=== PATIENT | male | born 1940 | race American Indian/Alaskan Native ===

== ENCOUNTER 2021-10-13 14:45 | Emergency (ER) | payer MEDICARE ==
[2021-10-14] MEDS ORDERED: HALOPERIDOL LACTATE 5 MG/1 ML INJ IM PRN (02:39)
[2021-10-14] MEDS ORDERED: LORazepam 2 MG/ML VIAL IM PRN (02:39)
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
--- NOTE | 2021-10-14 03:43 | XRay Report ---
CHEST 1 VIEW INDICATION / CLINICAL INFORMATION: Medical Clearance Psych. COMPARISON: None available. FINDINGS: SUPPORT DEVICES: None. HEART / MEDIASTINUM: No significant abnormality. LUNGS / PLEURA: No significant pulmonary or pleural abnormality. No pneumothorax. ADDITIONAL FINDINGS: No significant additional findings. IMPRESSION: 1. No acute findings. Signer Name: Aron Mccarthy MD Signed: 10/14/2021 3:39 AM Workstation Name: [id number]
[2021-10-14 03:46] LABS: Alanine Aminotransferase 22 units/L (7-56); Albumin 4.4 g/dL (3.9-5); BUN/Creatinine Ratio 14; Blood Urea Nitrogen 13 mg/dL (9-20); Calcium 9.7 mg/dL (8.4-10.2); Hemolysis Index 24
--- NOTE | 2021-10-14 03:49 | Cat Scan Report ---
CT HEAD WITHOUT CONTRAST INDICATION / CLINICAL INFORMATION: Medical Clearance Psych. TECHNIQUE: All CT scans at this location are performed using CT dose reduction for ALARA by means of automated e xposure control. COMPARISON: None FINDINGS: HEMORRHAGE: None. EXTRA-AXIAL SPACES: Normal in size and morphology for the patient's age. VENTRICULAR SYSTEM: Diffuse ventricular megaly secondary to central cerebral atrophy CEREBRAL PARENCHYMA: Moderate cerebral atrophy No significant abnormality. No acute territorial infar ct. MIDLINE SHIFT OR HERNIATION: None. CEREBELLUM / BRAINSTEM: No significant abnormality. ORBITS: Normal as visualized. SOFT TISSUES of HEAD: No significant abnormality. CALVARIUM: No significant abnormality. PARANASAL SINUSES / MASTOID AIR CELLS: Normal as visualized. ADDITIONAL FINDINGS: None. IMPRESSION: 1. No acute intracranial abnormality. 2. Moderate age-appropriate cerebral atrophy. Signer Name: Aron Mccarthy MD Signed: 10/14/2021 3:45 AM Workstation Name: [id number]
[2021-10-14 04:03] LABS: Hematocrit 47.2 % (35.5-45.6); Hemoglobin 15.7 gm/dl (11.8-15.2); Mean Corpuscular HGB Conc 33 % (32-34); Mean Corpuscular Volume 94 fl (84-94); Platelet Count 140 K/mm3 (140-440); Red Blood Count 5.02 M/mm3 (3.65-5.03); Red Cell Distribution Width 14.8 % (13.2-15.2)
[2021-10-14 04:20] LABS: Amphetamine Screen,Urine PRESUMPTIVE NEGATIVE; Benzodiazepines Screen,Urine PRESUMPTIVE NEGATIVE; Cannabinoid Screen,Urine PRESUMPTIVE NEGATIVE; Cocaine Screen,Urine PRESUMPTIVE NEGATIVE; Methadone Screen,Urine PRESUMPTIVE NEGATIVE; Opiate Screen,Urine PRESUMPTIVE NEGATIVE
[2021-10-14 04:44] LABS: Bilirubin,Urine NEG (Negative); Blood,Urine NEG (Negative); Color,Urine Straw (Yellow); Protein,Urine <15 mg/dL mg/dL (Negative)
[2021-10-14 04:45] LABS: RBC,Urine < 1.0 /HPF (0.0-6.0); Urobilinogen,Urine < 2.0 mg/dL (<2.0); WBC,Urine < 1.0 /HPF (0.0-6.0)
[2021-10-14] MEDS ORDERED: GABAPENTIN 300 MG CAP PO PRN (05:25)
[2021-10-14] MEDS ORDERED: ACETAMINOPHEN 325 MG TAB PO PRN (05:29)
[2021-10-14] MEDS ORDERED: ONDANSETRON 4 MG ODT TAB PO PRN (05:29)
[2021-10-14 05:57] LABS: Basophils % (Manual) 0 % (0.0-1.8); Platelet Estimate Consistent w Auto; RBC Morphology Normal; Total Cells Counted 100
[2021-10-14] MEDS ORDERED: LEVOTHYROXINE 25 MCG TAB PO SCH (06:00)
[2021-10-14] MEDS ORDERED: LISINOPRIL 10 MG TAB PO SCH (10:00)
[2021-10-14] MEDS ORDERED: hydroCHLOROthiazide 12.5 MG CAP PO SCH (10:00)
[2021-10-14] MEDS ORDERED: CHOLECALCIFEROL (VIT D3) 5,000 UNIT TAB PO SCH (10:00)
[2021-10-14] MEDS: MEMANTINE 5 MG TAB PO SCH ×2 (10:50→22:40)
[2021-10-14] MEDS: VALPROIC ACID 250 MG CAP PO SCH ×2 (10:50→22:39)
[2021-10-14] MEDS ORDERED: EZETIMIBE 10 MG TAB PO SCH (12:00)
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
[2021-10-14 19:45] VITALS: BP 100/56
[2021-10-14] MEDS ORDERED: TAMSULOSIN 0.4 MG CAP PO SCH (22:00)
--- NOTE | 2021-10-16 21:24 | Electrocardiograph Report ---
[facility] Test Date: 2021-10-14 Test Time: 02:48:55 Pat Name: DIRK SHER Department: Room: Gender: M Plan Examiner: BLANKA : 1940 Requested By: MITCHELL RUIZ Order Number: [id number] Reading MD: Cheryl Rangel Measurements Intervals [place] Rate: 66 P: 48 MS: 172 QRS: 0 QRSD: 92 T: 56 QT: 398 QTc: 417 Interpretive Statements Sinus rhythm No previous ECG available for comparison Electronically Signed On 10-16-2021 21:23:44 EDT by Cheryl Rangel
== END 2021-10-15 03:45 ==
LOC: ED 14:45
DX: F98.9 Unspecified behavioral and emotional disorders with onset usually occurring in childhood and adolescence (principal); Z13.30 Encounter for screening examination for mental health and behavioral disorders, unspecified; F03.91 Unspecified dementia, unspecified severity, with behavioral disturbance
CPT/HCPCS: 36415; 80053; 80164; 80178; 80307; 80320; 81001; 82550; 84443; 85007; 85025; 93005; G0480; J2060; U0003

== ENCOUNTER 2021-10-14 03:54 | Inpatient (IN) | payer MEDICARE ==
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
[2021-10-15] MEDS: VALPROIC ACID 250 MG CAP PO SCH ×3 (10:47→21:58)
[2021-10-15] MEDS: MEMANTINE 5 MG TAB PO SCH ×3 (10:47→21:58)
[2021-10-15] MEDS: LISINOPRIL 10 MG TAB PO SCH (10:48)
--- NOTE | 2021-10-15 11:04 | Consultation ---
History of Present Illness - Reason for Consult Consult date: 10/15/21 Medical management Requesting physician: MACKENZIE HERNADEZ - History of Present Illness 80 YO Male with Vascular Dementia with Behavioral Disturbance, Cerebral Atherosclerosis, DM, HTN, HLD, Hypothyroidism, BPH, Bipolar Disorder admitted [facility] for psychiatric stabilization. Consult placed by Dr. Hernadez for medical management. Pt seen and evaluated in the recreation room. Pt resting comfortably. Patient appears to be at baseline level of cognition and function. No reports of fever, chills, chest pain, palpitation or productive cough, skin rash, recent contact, known exposure to COVID-19. No reported nursing events. Past History Past Medical History: hypertension, hyperlipidemia, hypothyroidism, other (See HPI) Past Surgical History: No surgical history, Other (Reviewed) Social history: single. denies: smoking, alcohol abuse, prescription drug abuse Family history: diabetes, hypertension Medications and Allergies Allergies Allergy/AdvReac Type Severity Reaction Status Date / Time No Known Allergies Allergy Unverified 10/14/21 05:50 Home Medications Medication Instructions Recorded Confirmed Last Taken Type AtorvaSTATin [Lipitor] 40 mg PO HS 10/15/21 10/15/21 Unknown History Cholecalciferol (Vitamin D3) 5,000 units PO DAILY 10/15/21 10/15/21 Unknown History [Vitamin D3] Ezetimibe [Zetia] 10 mg PO 1200 10/15/21 10/15/21 Unknown History Gabapentin 300 mg PO HS PRN 10/15/21 10/15/21 Unknown History Levothyroxine [Synthroid] 25 mg PO DAILY 10/15/21 10/15/21 Unknown History Memantine 5 mg PO BID 10/15/21 10/15/21 Unknown History OLANzapine [ZyPREXA] 2.5 mg PO HS 10/15/21 10/15/21 Unknown History Tamsulosin [Flomax] 40 mg PO HS 10/15/21 10/15/21 Unknown History Valproic Acid [Depakene] 250 mg PO BID 10/15/21 10/15/21 Unknown History hydroCHLOROthiazide 12.5 mg PO DAILY 10/15/21 10/15/21 Unknown History [Hydrochlorothiazide] lisinopriL [Lisinopril] 10 mg PO DAILY 10/15/21 10/15/21 Unknown History Active Meds: Active Medications Atorvastatin Calcium (Atorvastatin 40 Mg Tab) 40 mg PO HS [facility] Cholecalciferol (Cholecalciferol (Vit D3) 5,000 Unit Tab) 5,000 unit PO DAILY [facility] Ezetimibe (Ezetimibe 10 Mg Tab) 10 mg PO 1200 [facility] Gabapentin (Gabapentin 300 Mg Cap) 300 mg PO HS PRN PRN Reason: Pain , Severe (7-10) Hydrochlorothiazide (Hydrochlorothiazide 12.5 Mg Cap) 12.5 mg PO DAILY [facility] Levothyroxine Sodium (Levothyroxine 25 Mcg Tab) 25 mcg PO DAILY [facility] Lisinopril (Lisinopril 10 Mg Tab) 10 mg PO DAILY [facility] Last Admin: 10/15/21 10:48 Dose: 10 mg Memantine (Memantine 5 Mg Tab) 5 mg PO BID [facility] Last Admin: 10/15/21 10:47 Dose: 5 mg Olanzapine (Olanzapine 2.5 Mg Tab) 2.5 mg PO HS [facility] Tamsulosin HCl (Tamsulosin 0.4 Mg Cap) 0.4 mg PO HS [facility] Trazodone HCl (Trazodone 50 Mg Tab) 50 mg PO QHS PRN PRN Reason: Insomnia Valproic Acid (Valproic Acid 250 Mg Cap) 250 mg PO BID [facility] Last Admin: 10/15/21 10:47 Dose: 250 mg Review of Systems Constitutional: no weight loss, no weight gain, no chills, no night sweats Ears, nose, mouth and throat: no ear pain, no tinnitis, no decreased hearing, no nose pain, no nasal discharge Cardiovascular: no chest pain, no palpitations, no edema, no syncope Respiratory: no cough, no excessive sputum Gastrointestinal: no abdominal pain, no diarrhea, no change in bowel habits, no hematemesis Genitourinary Male: no hematuria, no flank pain, no discharge, no urinary freq uency Rectal: no pain, no bleeding Musculoskeletal: no neck pain, no arm numbness/tingling, no shooting leg pain, no redness of joints Integumentary: no pruritis, no wounds, no blisters Neurological: no transient paralysis, no weakness, no parathesias, no numbness, no seizures, no syncope, no ataxia Psychiatric: memory loss, mood swings (Low) Endocrine: no cold intolerance, no heat intolerance, no excessive thirst, no polydipsia Hematologic/Lymphatic: no easy bruising, no lymphadenopathy Allergic/Immunologic: no wheezing, no persistent infections, no angioedema (Numbness unresponsive to) Exam - Constitutional Vitals: Temp Pulse Resp BP Pulse Ox 97.5 F L 69 18 129/75 97 10/15/21 09:52 10/15/21 10:48 10/15/21 09:52 10/15/21 10:48 10/15/21 09:52 General appearance: Present: mild distress - EENT Eyes: Present: PERRL ENT: hearing intact, clear oral mucosa - Neck Neck: Present: supple, normal ROM - Respiratory Respiratory effort: normal Respiratory: bilateral: CTA - Cardiovascular Heart Sounds: Present: S1 & S2. Absent: rub, click - Extremities Extremities: pulses symmetrical, No edema Peripheral Pulses: within normal limits - Abdominal General gastrointestinal: Present: soft, non-tender, non-distended, normal bowel sounds Male genitourinary: Present: normal - Integumentary Integumentary: Present: clear, warm, dry - Musculoskeletal Musculoskeletal: gait normal, strength equal bilaterally - Psychiatric Psychiatric: cooperative - Neurologic Neurologic: CNII-XII intact, moves all extremities Assessment and Plan - Patient Problems (1) Vascular dementia with behavior disturbance Current Visit: Yes Status: Acute Plan to address problem: Verbal prompting, verbal redirection, benzodiazepine therapy as clinically indicated. (2) Cerebral atherosclerosis Current Visit: Yes Status: Acute Plan to address problem: Antiplatelet therapy as clinically indicated, supportive care (3) Hypothyroidism Current Visit: Yes Status: Acute Plan to address problem: Synthroid therapy, supportive care. (4) Bipolar disorder Current Visit: Yes Status: Acute Plan to address problem: Behavior change counseling, cognitive behavioral therapy, supportive care. (5) Hypertension Current Visit: Yes Status: Acute Qualifiers: Hypertension type: primary hypertension Qualified Code(s): I10 - Essential (primary) hypertension Plan to address problem: Monitor blood pressure every shift, continue medical management (6) Diabetes Current Visit: Yes Status: Acute Plan to address problem: Consistent carbohydrate diet, insulin protocol, Accu-Chek, hypoglycemia protocol. (7) BPH (benign prostatic hyperplasia) Current Visit: Yes Status: Acute Plan to address problem: Continue medical management, supportive care. (8) Preventative health care Current Visit: Yes Status: Acute Plan to address problem: Patient counseled regarding home safety, outpatient follow-up with primary care physician for all risk factor and age-appropriate screening test. +30 minutes. (9) Advance care planning Current Visit: Yes Status: Acute Plan to address problem: Disease education conducted, care plan discussed, diagnoses discussed, prognosis discussed and patient is full code. Patient knowledges understanding and agreement with care plan, +30 minutes.
[2021-10-15] MEDS: CHOLECALCIFEROL (VIT D3) 5,000 UNIT TAB PO SCH (11:28)
[2021-10-15] MEDS: hydroCHLOROthiazide 12.5 MG CAP PO SCH (11:28)
[2021-10-15] MEDS: LEVOTHYROXINE 25 MCG TAB PO SCH (11:28)
[2021-10-15] MEDS: EZETIMIBE 10 MG TAB PO SCH (11:28)
[2021-10-15] MEDS: TAMSULOSIN 0.4 MG CAP PO SCH ×2 (21:14→22:00)
[2021-10-16] MEDS ORDERED: WATER FOR INJ Sterile (PF) 10 ML ONE (09:21)
[2021-10-16] MEDS: ZIPRASIDONE MESYLATE 20 MG VIAL IM PRN (09:36)
[2021-10-16] MEDS: hydroCHLOROthiazide 12.5 MG CAP PO SCH (09:37)
[2021-10-16] MEDS: VALPROIC ACID 250 MG CAP PO SCH ×2 (09:38→21:10)
[2021-10-16] MEDS: LISINOPRIL 10 MG TAB PO SCH (09:38)
[2021-10-16] MEDS: CHOLECALCIFEROL (VIT D3) 5,000 UNIT TAB PO SCH (09:38)
[2021-10-16] MEDS: LEVOTHYROXINE 25 MCG TAB PO SCH (09:38)
[2021-10-16] MEDS: MEMANTINE 5 MG TAB PO SCH ×2 (09:38→21:11)
--- NOTE | 2021-10-16 09:56 | Progress Note ---
Subjective Date of service: 10/16/21 Subjective Comment: The patient was seen this morning. He was sitting in front front of a peer's room and refusing redirection. The patient became very agitated when he was escorted to his room. Geodon 20mg IM was given for agitation. The patient is calm and eating breakfast. REVIEW OF SYSTEMS MENTAL STATUS EXAMINATION Diagnoses: Dementia with behavioral disturbances Treatment Plan: Patient admitted for inpatient psychiatric evaluation, medication adjustment and close monitoring The patient's behavior, mood, sleep and appetite will be closely monitored. Patient enrolled in individual and group therapeutic sessions and encouraged to attend. Patient provided with a safe and structured environment. Patient's physical health needs will be addressed by the Hospitalist. Hospitalist Consulted Labs including CBC, CMP, Lipid profile and Hemoglobin A1C levels ordered for baseline reference Social Assessment will be completed and the Manager Stylist will work with patie nt and family to ensure a suitable and safe disposition Medication adjustment will be made as clinically indicated Continue home meds Continue Zyprexa 2.5MG PO qhs Usual Wellness Faith/Preservation: - Start Trazodone 50 mg po QHS & 50 mg po QHS PRN between 10 PM & 2 AM for insomnia - Start Melatonin 5 mg po QHS to promote circadian rhythm The patient agreed on the treatment plan, understood the risk, benefit, alternative treatment, potential consequence of no treatment, and gave informed consent. Estimated days: 7 Medications and Allergies Allergies Allergy/AdvReac Type Severity Reaction Status Date / Time No Known Allergies Allergy Unverified 10/14/21 05:50 Home Medications Medication Instructions Recorded Confirmed Last Taken Type AtorvaSTATin [Lipitor] 40 mg PO HS 10/15/21 10/15/21 Unknown History Cholecalciferol (Vitamin D3) 5,000 units PO DAILY 10/15/21 10/15/21 Unknown History [Vitamin D3] Ezetimibe [Zetia] 10 mg PO 1200 10/15/21 10/15/21 Unknown History Gabapentin 300 mg PO HS PRN 10/15/21 10/15/21 Unknown History Levothyroxine [Synthroid] 25 mg PO DAILY 10/15/21 10/15/21 Unknown History Memantine 5 mg PO BID 10/15/21 10/15/21 Unknown History OLANzapine [ZyPREXA] 2.5 mg PO HS 10/15/21 10/15/21 Unknown History Tamsulosin [Flomax] 40 mg PO HS 10/15/21 10/15/21 Unknown History Valproic Acid [Depakene] 250 mg PO BID 10/15/21 10/15/21 Unknown History hydroCHLOROthiazide 12.5 mg PO DAILY 10/15/21 10/15/21 Unknown History [Hydrochlorothiazide] lisinopriL [Lisinopril] 10 mg PO DAILY 10/15/21 10/15/21 Unknown History Active Meds: Active Medications Atorvastatin Calcium (Atorvastatin 40 Mg Tab) 40 mg PO HS [facility] Last Admin: 10/15/21 21:59 Dose: Not Given Cholecalciferol (Cholecalciferol (Vit D3) 5,000 Unit Tab) 5,000 unit PO DAILY [facility] Last Admin: 10/16/21 09:38 Dose: 5,000 unit Ezetimibe (Ezetimibe 10 Mg Tab) 10 mg PO 1200 [facility] Last Admin: 10/15/21 11:28 Dose: 10 mg Gabapentin (Gabapentin 300 Mg Cap) 300 mg PO HS PRN PRN Reason: Pain , Severe (7-10) Hydrochlorothiazide (Hydrochlorothiazide 12.5 Mg Cap) 12.5 mg PO DAILY [facility] Last Admin: 10/16/21 09:37 Dose: 12.5 mg Levothyroxine Sodium (Levothyroxine 25 Mcg Tab) 25 mcg PO DAILY [facility] Last Admin: 10/16/21 09:38 Dose: 25 mcg Lisinopril (Lisinopril 10 Mg Tab) 10 mg PO DAILY [facility] Last Admin: 10/16/21 09:38 Dose: 10 mg Memantine (Memantine 5 Mg Tab) 5 mg PO BID [facility] Last Admin: 10/16/21 09:38 Dose: 5 mg Olanzapine (Olanzapine 2.5 Mg Tab) 2.5 mg PO HS [facility] Last Admin: 10/15/21 22:00 Dose: Not Given Tamsulosin HCl (Tamsulosin 0.4 Mg Cap) 0.4 mg PO HS [facility] Last Admin: 10/15/21 22:00 Dose: Not Given Trazodone HCl (Trazodone 50 Mg Tab) 50 mg PO QHS PRN PRN Reason: Insomnia Valproic Acid (Valproic Acid 250 Mg Cap) 250 mg PO BID [facility] Last Admin: 10/16/21 09:38 Dose: 250 mg Ziprasidone (Ziprasidone Mesylate 20 Mg Vial) 20 mg IM Q6H PRN PRN Reason: Agitation Last Admin: 10/16/21 09:36 Dose: 20 mg Results - Results Labs/Vitals: Laboratory Last Values POC Glucose 73 mg/dL (70-105) 10/16/21 06:38 Last Vital Signs Temp 97.6 F 10/16/21 07:55 Pulse 62 10/16/21 07:55 Resp 16 10/16/21 07:55 BP 136/87 10/16/21 07:55 Pulse Ox 98 10/16/21 07:55
[2021-10-16] MEDS: EZETIMIBE 10 MG TAB PO SCH (11:56)
[2021-10-16] MEDS: TAMSULOSIN 0.4 MG CAP PO SCH (21:10)
[2021-10-17] MEDS ORDERED: WATER FOR INJ Sterile (PF) 10 ML ONE (01:08)
[2021-10-17] MEDS: ZIPRASIDONE MESYLATE 20 MG VIAL IM PRN (01:15)
[2021-10-17] MEDS: GABAPENTIN 300 MG CAP PO PRN ×2 (01:15→20:38)
[2021-10-17] MEDS: traZODone 50 MG TAB PO PRN ×2 (01:15→20:38)
--- NOTE | 2021-10-17 09:16 | Progress Note ---
Subjective Date of service: 10/17/21 Subjective Comment: 10/17: The patient was seen resting quietly in bed. per nurse, " He presents as confused and forgetful. His appetite is improving and he was medication compliant. He had to be assisted with putting the cup to his mouth due to his confusion. He had no agitation throughout the evening. Overnight the patient slept until around 3 am. A female peer was yelling out and he went to her door and stood in the doorway. He was rubbing his left leg and stated it hurt. He could not be convinced to leave the other patients door. Patient presented as experiencing visual hallucinations. He was following unseen objects with his eyes. Patient could not be redirected without becoming angry. Geodon 20 mg IM was given for increasing agitation. He was assisted to bed where he stayed and rested. He did not sleep much but did not come back out of his room. Patient slept around 5 hours." Start Risperidone 1mg po BID REVIEW OF SYSTEMS MENTAL STATUS EXAMINATION Diagnoses: Dementia with behavioral disturbances Treatment Plan: Patient admitted for inpatient psychiatric evaluation, medication adjustment and close monitoring The patient's behavior, mood, sleep and appetite will be closely monitored. Patient enrolled in individual and group therapeutic sessions and encouraged to attend. Patient provided with a safe and structured environment. Patient's physical health needs will be addressed by the Hospitalist. Hospitalist Consulted Labs including CBC, CMP, Lipid profile and Hemoglobin A1C levels ordered for baseline reference Social Assessment will be completed and the Puppy Sitter will work with patient and family to ensure a suitable and safe disposition Medication adjustment will be made as clinically indicated Continue home meds Usual Wellness Christian/Preservation: - Start Trazodone 50 mg po QHS & 50 mg po QHS PRN between 10 PM & 2 AM for insomnia - Start Melatonin 5 mg po QHS to promote circadian rhythm The patient agreed on the treatment plan, understood the risk, benefit, alternative treatment, potential consequence of no treatment, and gave informed consent. Estimated days: 7 Medications and Allergies Allergies Allergy/AdvReac Type Severity Reaction Status Date / Time No Known Allergies Allergy Unverified 10/14/21 05:50 Home Medications Medication Instructions Recorded Confirmed Last Taken Type AtorvaSTATin [Lipitor] 40 mg PO HS 10/15/21 10/15/21 Unknown History Cholecalciferol (Vitamin D3) 5,000 units PO DAILY 10/15/21 10/15/21 Unknown History [Vitamin D3] Ezetimibe [Zetia] 10 mg PO 1200 10/15/21 10/15/21 Unknown History Gabapentin 300 mg PO HS PRN 10/15/21 10/15/21 Unknown History Levothyroxine [Synthroid] 25 mg PO DAILY 10/15/21 10/15/21 Unknown History Memantine 5 mg PO BID 10/15/21 10/15/21 Unknown History OLANzapine [ZyPREXA] 2.5 mg PO HS 10/15/21 10/15/21 Unknown History Tamsulosin [Flomax] 40 mg PO HS 10/15/21 10/15/21 Unknown History Valproic Acid [Depakene] 250 mg PO BID 10/15/21 10/15/21 Unknown History hydroCHLOROthiazide 12.5 mg PO DAILY 10/15/21 10/15/21 Unknown History [Hydrochlorothiazide] lisinopriL [Lisinopril] 10 mg PO DAILY 10/15/21 10/15/21 Unknown History Active Meds: Active Medications Atorvastatin Calcium (Atorvastatin 40 Mg Tab) 40 mg PO HS [facility] Last Admin: 10/16/21 21:11 Dose: 40 mg Cholecalciferol (Cholecalciferol (Vit D3) 5,000 Unit Tab) 5,000 unit PO DAILY [facility] Last Admin: 10/16/21 09:38 Dose: 5,000 unit Ezetimibe (Ezetimibe 10 Mg Tab) 10 mg PO 1200 [facility] Last Admin: 10/16/21 11:56 Dose: 10 mg Gabapentin (Gabapentin 300 Mg Cap) 300 mg PO HS PRN PRN Reason: Pain , Severe (7-10) Last Admin: 10/17/21 01:15 Dose: 300 mg Hydrochlorothiazide (Hydrochlorothiazide 12.5 Mg Cap) 12.5 mg PO DAILY [facility] Last Admin: 10/16/21 09:37 Dose: 12.5 mg Levothyroxine Sodium (Levothyroxine 25 Mcg Tab) 25 mcg PO DAILY [facility] Last Admin: 10/16/21 09:38 Dose: 25 mcg Lisinopril (Lisinopril 10 Mg Tab) 10 mg PO DAILY [facility] Last Admin: 10/16/21 09:38 Dose: 10 mg Memantine (Memantine 5 Mg Tab) 5 mg PO BID [facility] Last Admin: 10/16/21 21:11 Dose: 5 mg Olanzapine (Olanzapine 2.5 Mg Tab) 2.5 mg PO HS [facility] Last Admin: 10/16/21 21:11 Dose: 2.5 mg Tamsulosin HCl (Tamsulosin 0.4 Mg Cap) 0.4 mg PO HS [facility] Last Admin: 10/16/21 21:10 Dose: 0.4 mg Trazodone HCl (Trazodone 50 Mg Tab) 50 mg PO QHS PRN PRN Reason: Insomnia Last Admin: 10/17/21 01:15 Dose: 50 mg Valproic Acid (Valproic Acid 250 Mg Cap) 250 mg PO BID [facility] Last Admin: 10/16/21 21:10 Dose: 250 mg Results - Results Labs/Vitals: Laboratory Last Values POC Glucose 73 mg/dL (70-105) 10/16/21 06:38 Last Vital Signs Temp 97.1 F L 10/16/21 20:04 Pulse 70 10/16/21 20:04 Resp 18 10/16/21 20:04 BP 122/67 10/16/21 20:04 Pulse Ox 98 10/16/21 20:04
[2021-10-17] MEDS ORDERED: ZIPRASIDONE MESYLATE 20 MG VIAL IM PRN (10:00)
[2021-10-17] MEDS: EZETIMIBE 10 MG TAB PO SCH (12:35)
[2021-10-17] MEDS: VALPROIC ACID 250 MG CAP PO SCH ×2 (12:35→21:19)
[2021-10-17] MEDS: MEMANTINE 5 MG TAB PO SCH ×2 (12:35→21:19)
[2021-10-17] MEDS: risperiDONE 1 MG TAB PO SCH ×2 (12:35→21:19)
[2021-10-17] MEDS: hydroCHLOROthiazide 12.5 MG CAP PO SCH (12:36)
[2021-10-17] MEDS: LEVOTHYROXINE 25 MCG TAB PO SCH (12:37)
[2021-10-17] MEDS: LISINOPRIL 10 MG TAB PO SCH (12:40)
[2021-10-17] MEDS: CHOLECALCIFEROL (VIT D3) 5,000 UNIT TAB PO SCH (12:46)
[2021-10-17] MEDS: TAMSULOSIN 0.4 MG CAP PO SCH (21:19)
--- NOTE | 2021-10-17 21:50 | Progress Note ---
Assessment and Plan - Patient Problems (1) Vascular dementia with behavior disturbance Current Visit: Yes Status: Acute Plan to address problem: Verbal prompting, verbal redirection, benzodiazepine therapy as clinically indicated. (2) Cerebral atherosclerosis Current Visit: Yes Status: Acute Plan to address problem: Antiplatelet therapy as clinically indicated, supportive care (3) Hypothyroidism Current Visit: Yes Status: Acute Plan to address problem: Synthroid therapy, supportive care. (4) Bipolar disorder Current Visit: Yes Status: Acute Plan to address problem: Behavior change counseling, cognitive behavioral therapy, supportive care. (5) Hypertension Current Visit: Yes Status: Acute Qualifiers: Hypertension type: primary hypertension Qualified Code(s): I10 - Essential (primary) hypertension Plan to address problem: Monitor blood pressure every shift, continue medical management (6) Diabetes Current Visit: Yes Status: Acute Plan to address problem: Consistent carbohydrate diet, insulin protocol, Accu-Chek, hypoglycemia protocol. (7) BPH (benign prostatic hyperplasia) Current Visit: Yes Status: Acute Plan to address problem: Continue medical management, supportive care. (8) Preventative health care Current Visit: Yes Status: Acute Plan to address problem: Patient counseled regarding home safety, outpatient follow-up with primary care physician for all risk factor and age-appropriate screening test. +30 minutes. (9) Advance care planning Current Visit: Yes Status: Acute Plan to address problem: Disease education conducted, care plan discussed, diagnoses discussed, prognosis discussed and patient is full code. Patient knowledges understanding and agreement with care plan, +30 minutes. History Interval history: 80 YO Male with Vascular Dementia with Behavioral Disturbance, Cerebral Atherosclerosis, DM, HTN, HLD, Hypothyroidism, BPH, Bipolar Disorder admitted [facility] for psychiatric stabilization. Consult placed by Dr. Guardado for medical management. Pt seen and evaluated in the recreation room. Pt resting comfortably. Patient appears to be at baseline level of cognition and function. No reported nursing events. Hospitalist Physical - Constitutional Vitals: Temp Pulse Resp BP Pulse Ox 97.1 F L 82 18 150/86 99 10/16/21 20:04 10/17/21 09:46 10/17/21 09:46 10/17/21 09:46 10/17/21 09:46 General appearance: Present: mild distress - EENT Eyes: Present: PERRL ENT: hearing intact, hearing decreased - Neck Neck: Present: supple - Respiratory Respiratory effort: normal Respiratory: bilateral: CTA - Cardiovascular Rhythm: regular Heart Sounds: Present: S1 & S2 - Extremities Extremities: no ischemia Peripheral Pulses: within normal limits - Abdominal General gastrointestinal: soft, non-tender, non-distended - Integumentary Integumentary: Present: clear, erythema - Psychiatric Psychiatric: cooperative - Neurologic Neurologic: CNII-XII intact Results - Labs Labs: Laboratory Last Values POC Glucose 73 mg/dL (70-105) 10/16/21 06:38 Campbell/IV: Voiding Method Toilet Active Medications - Current Medications Current Medications: Generic Name Dose Route Start Last Admin Trade Name Freq PRN Reason Stop Dose Admin Atorvastatin Calcium 40 mg 10/15/21 22:00 10/17/21 21:19 Atorvastatin 40 Mg Tab PO 40 mg HS [facility] Administration Cholecalciferol 5,000 unit 10/15/21 11:00 10/17/21 12:46 Cholecalciferol (Vit D3) 5,000 Unit Tab PO 5,000 unit DAILY [facility] Administration Ezetimibe 10 mg 10/15/21 12:00 10/17/21 12:35 Ezetimibe 10 Mg Tab PO 10 mg 1200 [facility] Administration Gabapentin 300 mg 10/15/21 08:34 10/17/21 20:38 Gabapentin 300 Mg Cap PO 300 mg HS PRN Administration Pain , Severe (7-10) Hydrochlorothiazide 12.5 mg 10/15/21 11:00 10/17/21 12:36 Hydrochlorothiazide 12.5 Mg Cap PO 12.5 mg DAILY [facility] Administration Levothyroxine Sodium 25 mcg 10/15/21 11:00 10/17/21 12:37 Levothyroxine 25 Mcg Tab PO 25 mcg DAILY [facility] Administration Lisinopril 10 mg 10/15/21 11:00 10/17/21 12:40 Lisinopril 10 Mg Tab PO 10 mg DAILY [facility] Administration Memantine 5 mg 10/15/21 11:00 10/17/21 21:19 Memantine 5 Mg Tab PO 5 mg BID [facility] Administration Risperidone 1 mg 10/17/21 10:00 10/17/21 21:19 Risperidone 1 Mg Tab PO 1 mg BID [facility] Administration Tamsulosin HCl 0.4 mg 10/15/21 22:00 10/17/21 21:19 Tamsulosin 0.4 Mg Cap PO 0.4 mg HS [facility] Administration Trazodone HCl 50 mg 10/15/21 08:36 10/17/21 20:38 Trazodone 50 Mg Tab PO 50 mg QHS PRN Administration Insomnia Valproic Acid 250 mg 10/15/21 11:00 10/17/21 21:19 Valproic Acid 250 Mg Cap PO 250 mg BID [facility] Administration Ziprasidone 20 mg 10/17/21 10:00 Ziprasidone Mesylate 20 Mg Vial IM Q6H PRN Agitation
--- NOTE | 2021-10-18 09:43 | Progress Note ---
Subjective Date of service: 10/18/21 Subjective Comment: 10/18: The patient was seen resting quietly in bed. Per nurse, the patient had an uneventful night. 10/17: The patient was seen resting quietly in bed. per nurse, " He presents as confused and forgetful. His appetite is improving and he was medication compliant. He had to be assisted with putting the cup to his mouth due to his confusion. He had no agitation throughout the evening. Overnight the patient slept until around 3 am. A female peer was yelling out and he went to her door and stood in the doorway. He was rubbing his left leg and stated it hurt. He could not be convinced to leave the other patients door. Patient presented as experiencing visual hallucinations. He was following unseen objects with his eyes. Patient could not be redirected without becoming angry. Geodon 20 mg IM was given for increasing agitation. He was assisted to bed where he stayed and rested. He did not sleep much but did not come back out of his room. Patient slept around 5 hours." Start Risperidone 1mg po BID REVIEW OF SYSTEMS MENTAL STATUS EXAMINATION Diagnoses: Dementia with behavioral disturbances Treatment Plan: Patient admitted for inpatient psychiatric evaluation, medication adjustment and close monitoring The patient's behavior, mood, sleep and appetite will be closely monitored. Patient enrolled in individual and group therapeutic sessions and encouraged to attend. Patient provided with a safe and structured environment. Patient's physical health needs will be addressed by the Hospitalist. Hospitalist Consulted Labs including CBC, CMP, Lipid profile and Hemoglobin A1C levels ordered for baseline reference Social Assessment will be completed and the [place] Attendant will work with patien t and family to ensure a suitable and safe disposition Medication adjustment will be made as clinically indicated Continue home meds Usual Wellness Moravian/Preservation: - Start Trazodone 50 mg po QHS & 50 mg po QHS PRN between 10 PM & 2 AM for insomnia - Start Melatonin 5 mg po QHS to promote circadian rhythm The patient agreed on the treatment plan, understood the risk, benefit, alternative treatment, potential consequence of no treatment, and gave informed consent. Estimated days: 7 Medications and Allergies Medications and Allergies Allergies Allergy/AdvReac Type Severity Reaction Status Date / Time No Known Allergies Allergy Unverified 10/14/21 05:50 Home Medications Medication Instructions Recorded Confirmed Last Taken Type AtorvaSTATin [Lipitor] 40 mg PO HS 10/15/21 10/15/21 Unknown History Cholecalciferol (Vitamin D3) 5,000 units PO DAILY 10/15/21 10/15/21 Unknown History [Vitamin D3] Ezetimibe [Zetia] 10 mg PO 1200 10/15/21 10/15/21 Unknown History Gabapentin 300 mg PO HS PRN 10/15/21 10/15/21 Unknown History Levothyroxine [Synthroid] 25 mg PO DAILY 10/15/21 10/15/21 Unknown History Memantine 5 mg PO BID 10/15/21 10/15/21 Unknown History OLANzapine [ZyPREXA] 2.5 mg PO HS 10/15/21 10/15/21 Unknown History Tamsulosin [Flomax] 40 mg PO HS 10/15/21 10/15/21 Unknown History Valproic Acid [Depakene] 250 mg PO BID 10/15/21 10/15/21 Unknown History hydroCHLOROthiazide 12.5 mg PO DAILY 10/15/21 10/15/21 Unknown History [Hydrochlorothiazide] lisinopriL [Lisinopril] 10 mg PO DAILY 10/15/21 10/15/21 Unknown History Active Meds: Active Medications Atorvastatin Calcium (Atorvastatin 40 Mg Tab) 40 mg PO HS [facility] Last Admin: 10/17/21 21:19 Dose: 40 mg Cholecalciferol (Cholecalciferol (Vit D3) 5,000 Unit Tab) 5,000 unit PO DAILY [facility] Last Admin: 10/17/21 12:46 Dose: 5,000 unit Ezetimibe (Ezetimibe 10 Mg Tab) 10 mg PO 1200 [facility] Last Admin: 10/17/21 12:35 Dose: 10 mg Gabapentin (Gabapentin 300 Mg Cap) 300 mg PO HS PRN PRN Reason: Pain , Severe (7-10) Last Admin: 10/17/21 20:38 Dose: 300 mg Hydrochlorothiazide (Hydrochlorothiazide 12.5 Mg Cap) 12.5 mg PO DAILY [facility] Last Admin: 10/17/21 12:36 Dose: 12.5 mg Levothyroxine Sodium (Levothyroxine 25 Mcg Tab) 25 mcg PO DAILY [facility] Last Admin: 10/17/21 12:37 Dose: 25 mcg Lisinopril (Lisinopril 10 Mg Tab) 10 mg PO DAILY [facility] Last Admin: 10/17/21 12:40 Dose: 10 mg Memantine (Memantine 5 Mg Tab) 5 mg PO BID [facility] Last Admin: 10/17/21 21:19 Dose: 5 mg Risperidone (Risperidone 1 Mg Tab) 1 mg PO BID [facility] Last Admin: 10/17/21 21:19 Dose: 1 mg Tamsulosin HCl (Tamsulosin 0.4 Mg Cap) 0.4 mg PO HS [facility] Last Admin: 10/17/21 21:19 Dose: 0.4 mg Trazodone HCl (Trazodone 50 Mg Tab) 50 mg PO QHS PRN PRN Reason: Insomnia Last Admin: 10/17/21 20:38 Dose: 50 mg Valproic Acid (Valproic Acid 250 Mg Cap) 250 mg PO BID [facility] Last Admin: 10/17/21 21:19 Dose: 250 mg Ziprasidone (Ziprasidone Mesylate 20 Mg Vial) 20 mg IM Q6H PRN PRN Reason: Agitation Results - Results Labs/Vitals: Laboratory Last Values POC Glucose 73 mg/dL (70-105) 10/16/21 06:38 Last Vital Signs Temp 97.8 F 10/17/21 19:55 Pulse 91 H 10/17/21 19:55 Resp 17 10/17/21 19:55 BP 98/58 10/17/21 19:55 Pulse Ox 96 10/17/21 19:55
[2021-10-18] MEDS: hydroCHLOROthiazide 12.5 MG CAP PO SCH (10:39)
[2021-10-18] MEDS: LEVOTHYROXINE 25 MCG TAB PO SCH (10:39)
[2021-10-18] MEDS: MEMANTINE 5 MG TAB PO SCH ×2 (10:39→21:21)
[2021-10-18] MEDS: risperiDONE 1 MG TAB PO SCH ×2 (10:39→21:21)
[2021-10-18] MEDS: CHOLECALCIFEROL (VIT D3) 5,000 UNIT TAB PO SCH (10:39)
[2021-10-18] MEDS: VALPROIC ACID 250 MG CAP PO SCH ×2 (10:40→21:21)
[2021-10-18] MEDS: LISINOPRIL 10 MG TAB PO SCH (10:41)
[2021-10-18] MEDS: EZETIMIBE 10 MG TAB PO SCH (12:00)
--- NOTE | 2021-10-18 17:50 | Progress Note ---
Assessment and Plan Assessment and plan: (1) Vascular dementia with behavior disturbance Current Visit: Yes Status: Acute Plan to address problem: continue anti-psych medicine verbal redirection benzodiazepine therapy PRN (2) Cerebral atherosclerosis Current Visit: Yes Status: Acute Plan to address problem: Antiplatelet therapy (3) Hypothyroidism Current Visit: Yes Status: Acute Plan to address problem: Continue Synthroid therapy supportive care. (4) Bipolar disorder Current Visit: Yes Status: Acute Plan to address problem: Continue cognitive behavioral therapy supportive care. (5) Hypertension Current Visit: Yes Status: Acute Qualifiers: Assessment and Plan (1) Vascular dementia with behavior disturbance Current Visit: Yes Status: Acute Plan to address problem: continue anti-psych medicine verbal redirection benzodiazepine therapy PRN (2) Cerebral atherosclerosis Current Visit: Yes Status: Acute Plan to address problem: Antiplatelet therapy (3) Hypothyroidism Current Visit: Yes Status: Acute Plan to address problem: Continue Synthroid therapy supportive care. (4) Bipolar disorder Current Visit: Yes Status: Acute Plan to address problem: Continue cognitive behavioral therapy supportive care. (5) Hypertension Current Visit: Yes Status: Acute Qualifiers: Monitor blood pressure Continue anti-hypertensive History Interval history: patient seen at bedside. patient nurse present. patient denies any distress. Hospitalist Physical - Constitutional Vitals: Temp Pulse Resp BP Pulse Ox 98.7 F 82 18 101/62 94 10/18/21 10:32 10/18/21 10:41 10/18/21 10:32 10/18/21 10:41 10/18/21 10:32 General appearance: Present: no acute distress - EENT Eyes: Present: EOM intact ENT: hearing intact - Respiratory Respiratory effort: normal Respiratory: bilateral: CTA - Cardiovascular Rhythm: regular - Extremities Extremities: no ischemia Results - Labs Labs: Laboratory Last Values POC Glucose 73 mg/dL (70-105) 10/16/21 06:38 Campbell/IV: Voiding Method Toilet Active Medications - Current Medications Current Medications: Generic Name Dose Route Start Last Admin Trade Name Freq PRN Reason Stop Dose Admin Atorvastatin Calcium 40 mg 10/15/21 22:00 10/17/21 21:19 Atorvastatin 40 Mg Tab PO 40 mg HS ARTEM Administration Cholecalciferol 5,000 unit 10/15/21 11:00 10/18/21 10:39 Cholecalciferol (Vit D3) 5,000 Unit Tab PO 5,000 unit DAILY ARTEM Administration Ezetimibe 10 mg 10/15/21 12:00 10/18/21 12:00 Ezetimibe 10 Mg Tab PO 10 mg 1200 ARTEM Administration Gabapentin 300 mg 10/15/21 08:34 10/17/21 20:38 Gabapentin 300 Mg Cap PO 300 mg HS PRN Administration Pain , Severe (7-10) Hydrochlorothiazide 12.5 mg 10/15/21 11:00 10/18/21 10:39 Hydrochlorothiazide 12.5 Mg Cap PO 12.5 mg DAILY ARTEM Administration Levothyroxine Sodium 25 mcg 10/15/21 11:00 10/18/21 10:39 Levothyroxine 25 Mcg Tab PO 25 mcg DAILY ARTEM Administration Lisinopril 10 mg 10/15/21 11:00 10/18/21 10:41 Lisinopril 10 Mg Tab PO 10 mg DAILY ARTEM Administration Memantine 5 mg 10/15/21 11:00 10/18/21 10:39 Memantine 5 Mg Tab PO 5 mg BID ARTEM Administration Risperidone 1 mg 10/17/21 10:00 10/18/21 10:39 Risperidone 1 Mg Tab PO 1 mg BID ARTEM Administration Tamsulosin HCl 0.4 mg 10/15/21 22:00 10/17/21 21:19 Tamsulosin 0.4 Mg Cap PO 0.4 mg HS ARTEM Administration Trazodone HCl 50 mg 10/15/21 08:36 10/17/21 20:38 Trazodone 50 Mg Tab PO 50 mg QHS PRN Administration Insomnia Valproic Acid 250 mg 10/15/21 11:00 10/18/21 10:40 Valproic Acid 250 Mg Cap PO 250 mg BID ARTEM Administration Ziprasidone 20 mg 10/17/21 10:00 Ziprasidone Mesylate 20 Mg Vial IM Q6H PRN Agitation
--- NOTE | 2021-10-18 18:10 | Progress Note ---
Assessment and Plan Assessment and plan: Assessment and Plan (1) Vascular dementia with behavior disturbance Current Visit: Yes Status: Acute Plan to address problem: continue anti-psych medicine verbal redirection benzodiazepine therapy PRN (2) Cerebral atherosclerosis Current Visit: Yes Status: Acute Plan to address problem: Antiplatelet therapy (3) Hypothyroidism Current Visit: Yes Status: Acute Plan to address problem: Continue Synthroid therapy supportive care. (4) Bipolar disorder Current Visit: Yes Status: Acute Plan to address problem: Continue cognitive behavioral therapy supportive care. (5) Hypertension Current Visit: Yes Status: Acute Qualifiers: Monitor blood pressure Continue anti-hypertensive History Interval history: Patient seen at bedside. patient nurse present. patient denies any distress. reviewed V/S and is stable. Hospitalist Physical - Constitutional Vitals: Temp Pulse Resp BP Pulse Ox 98.7 F 82 18 101/62 94 10/18/21 10:32 10/18/21 10:41 10/18/21 10:32 10/18/21 10:41 10/18/21 10:32 General appearance: Present: no acute distress - Neck Neck: Present: normal ROM - Respiratory Respiratory effort: normal Respiratory: bilateral: CTA - Cardiovascular Rhythm: regular - Abdominal General gastrointestinal: soft, non-tender - Allied Health Allied health notes reviewed: nursing Results - Labs Labs: Laboratory Last Values POC Glucose 73 mg/dL (70-105) 10/16/21 06:38 Campbell/IV: Voiding Method Toilet Active Medications - Current Medications Current Medications: Generic Name Dose Route Start Last Admin Trade Name Freq PRN Reason Stop Dose Admin Atorvastatin Calcium 40 mg 10/15/21 22:00 10/17/21 21:19 Atorvastatin 40 Mg Tab PO 40 mg HS ARTEM Administration Cholecalciferol 5,000 unit 10/15/21 11:00 10/18/21 10:39 Cholecalciferol (Vit D3) 5,000 Unit Tab PO 5,000 unit DAILY ARTEM Administration Ezetimibe 10 mg 10/15/21 12:00 10/18/21 12:00 Ezetimibe 10 Mg Tab PO 10 mg 1200 ARTEM Administration Gabapentin 300 mg 10/15/21 08:34 10/17/21 20:38 Gabapentin 300 Mg Cap PO 300 mg HS PRN Administration Pain , Severe (7-10) Hydrochlorothiazide 12.5 mg 10/15/21 11:00 10/18/21 10:39 Hydrochlorothiazide 12.5 Mg Cap PO 12.5 mg DAILY ARTEM Administration Levothyroxine Sodium 25 mcg 10/15/21 11:00 10/18/21 10:39 Levothyroxine 25 Mcg Tab PO 25 mcg DAILY ARTEM Administration Lisinopril 10 mg 10/15/21 11:00 10/18/21 10:41 Lisinopril 10 Mg Tab PO 10 mg DAILY ARTEM Administration Memantine 5 mg 10/15/21 11:00 10/18/21 10:39 Memantine 5 Mg Tab PO 5 mg BID ARTEM Administration Risperidone 1 mg 10/17/21 10:00 10/18/21 10:39 Risperidone 1 Mg Tab PO 1 mg BID ARTEM Administration Tamsulosin HCl 0.4 mg 10/15/21 22:00 10/17/21 21:19 Tamsulosin 0.4 Mg Cap PO 0.4 mg HS ARTEM Administration Trazodone HCl 50 mg 10/15/21 08:36 10/17/21 20:38 Trazodone 50 Mg Tab PO 50 mg QHS PRN Administration Insomnia Valproic Acid 250 mg 10/15/21 11:00 10/18/21 10:40 Valproic Acid 250 Mg Cap PO 250 mg BID ARTEM Administration Ziprasidone 20 mg 10/17/21 10:00 Ziprasidone Mesylate 20 Mg Vial IM Q6H PRN Agitation
[2021-10-18] MEDS: TAMSULOSIN 0.4 MG CAP PO SCH (21:21)
[2021-10-19] MEDS: traZODone 50 MG TAB PO PRN ×2 (01:56→20:59)
[2021-10-19] MEDS: GABAPENTIN 300 MG CAP PO PRN ×2 (01:56→20:58)
[2021-10-19 05:56] LABS: Hematocrit 41.7 % (35.5-45.6); Hemoglobin 14.1 gm/dl (11.8-15.2); Mean Corpuscular HGB Conc 34 % (32-34); Mean Corpuscular Volume 93 fl (84-94); Platelet Count 138 K/mm3 (140-440); Red Blood Count 4.48 M/mm3 (3.65-5.03); Red Cell Distribution Width 14.4 % (13.2-15.2)
[2021-10-19 06:10] LABS: BUN/Creatinine Ratio 20; Blood Urea Nitrogen 18 mg/dL (9-20); Calcium 9.1 mg/dL (8.4-10.2); Hemolysis Index 13
[2021-10-19 06:33] LABS: Chol/HDL Ratio 4.1 %
[2021-10-19 07:01] LABS: Hepatitis B Surface Antigen Non-Reactive (Negative); Hepatitis C Virus Antibody Non-Reactive (NonReactive)
[2021-10-19] MEDS: MEMANTINE 5 MG TAB PO SCH ×2 (10:35→20:59)
[2021-10-19] MEDS: risperiDONE 1 MG TAB PO SCH ×2 (10:35→11:34)
--- NOTE | 2021-10-19 10:36 | Progress Note ---
Subjective Date of service: 10/19/21 Subjective Comment: 10/19:The patient was seen resting quietly in bed. He is calm and cooperative. He is requesting for breakfast. Per nurse, " Pt alert but confused. Slept approximately for 5 hours during the night." 10/18: The patient was seen resting quietly in bed. Per nurse, the patient had an uneventful night. 10/17: The patient was seen resting quietly in bed. per nurse, " He presents as confused and forgetful. His appetite is improving and he was medication compliant. He had to be assisted with putting the cup to his mouth due to his confusion. He had no agitation throughout the evening. Overnight the patient slept until around 3 am. A female peer was yelling out and he went to her door and stood in the doorway. He was rubbing his left leg and stated it hurt. He could not be convinced to leave the other patients door. Patient presented as experiencing visual hallucinations. He was following unseen objects with his eyes. Patient could not be redirected without becoming angry. Geodon 20 mg IM was given for increasing agitation. He was assisted to bed where he stayed and rested. He did not sleep much but did not come back out of his room. Patient slept around 5 hours." Start Risperidone 1mg po BID REVIEW OF SYSTEMS MENTAL STATUS EXAMINATION Diagnoses: Dementia with behavioral disturbances Treatment Plan: Patient admitted for inpatient psychiatric evaluation, medication adjustment and close monitoring The patient's behavior, mood, sleep and appetite will be closely monitored. Patient enrolled in individual and group therapeutic sessions and encouraged to attend. Patient provided with a safe and structured environment. Patient's physical health needs will be addressed by the Hospitalist. Hospitalist Consulted Labs including CBC, CMP, Lipid profile and Hemoglobin A1C levels ordered for baseline reference Social Assessment will be completed and the Optical Design Engineer will work with patient and family to ensure a suitable and safe disposition Medication adjustment will be made as clinically indicated Continue home meds Usual Wellness Tenriism/Preservation: - Start Trazodone 50 mg po QHS & 50 mg po QHS PRN between 10 PM & 2 AM for insomnia - Start Melatonin 5 mg po QHS to promote circadian rhythm The patient agreed on the treatment plan, understood the risk, benefit, alternative treatment, potential consequence of no treatment, and gave informed consent. Estimated days: 7 Medications and Allergies Medications and Allergies Allergies Allergy/AdvReac Type Severity Reaction Status Date / Time No Known Allergies Allergy Unverified 10/14/21 05:50 Home Medications Medication Instructions Recorded Confirmed Last Taken Type AtorvaSTATin [Lipitor] 40 mg PO HS 10/15/21 10/15/21 Unknown History Cholecalciferol (Vitamin D3) 5,000 units PO DAILY 10/15/21 10/15/21 Unknown History [Vitamin D3] Ezetimibe [Zetia] 10 mg PO 1200 10/15/21 10/15/21 Unknown History Gabapentin 300 mg PO HS PRN 10/15/21 10/15/21 Unknown History Levothyroxine [Synthroid] 25 mg PO DAILY 10/15/21 10/15/21 Unknown History Memantine 5 mg PO BID 10/15/21 10/15/21 Unknown History OLANzapine [ZyPREXA] 2.5 mg PO HS 10/15/21 10/15/21 Unknown History Tamsulosin [Flomax] 40 mg PO HS 10/15/21 10/15/21 Unknown History Valproic Acid [Depakene] 250 mg PO BID 10/15/21 10/15/21 Unknown History hydroCHLOROthiazide 12.5 mg PO DAILY 10/15/21 10/15/21 Unknown History [Hydrochlorothiazide] lisinopriL [Lisinopril] 10 mg PO DAILY 10/15/21 10/15/21 Unknown History Active Meds: Active Medications Atorvastatin Calcium (Atorvastatin 40 Mg Tab) 40 mg PO HS [facility] Last Admin: 10/18/21 21:21 Dose: 40 mg Cholecalciferol (Cholecalciferol (Vit D3) 5,000 Unit Tab) 5,000 unit PO DAILY S Last Admin: 10/18/21 10:39 Dose: 5,000 unit Ezetimibe (Ezetimibe 10 Mg Tab) 10 mg PO 1200 [facility] Last Admin: 10/18/21 12:00 Dose: 10 mg Gabapentin (Gabapentin 300 Mg Cap) 300 mg PO HS PRN PRN Reason: Pain , Severe (7-10) Last Admin: 10/19/21 01:56 Dose: 300 mg Hydrochlorothiazide (Hydrochlorothiazide 12.5 Mg Cap) 12.5 mg PO DAILY [facility] Last Admin: 10/18/21 10:39 Dose: 12.5 mg Levothyroxine Sodium (Levothyroxine 25 Mcg Tab) 25 mcg PO DAILY [facility] Last Admin: 10/18/21 10:39 Dose: 25 mcg Lisinopril (Lisinopril 10 Mg Tab) 10 mg PO DAILY [facility] Last Admin: 10/18/21 10:41 Dose: 10 mg Memantine (Memantine 5 Mg Tab) 5 mg PO BID [facility] Last Admin: 10/18/21 21:21 Dose: 5 mg Risperidone (Risperidone 1 Mg Tab) 1 mg PO BID [facility] Last Admin: 10/18/21 21:21 Dose: 1 mg Tamsulosin HCl (Tamsulosin 0.4 Mg Cap) 0.4 mg PO HS [facility] Last Admin: 10/18/21 21:21 Dose: 0.4 mg Trazodone HCl (Trazodone 50 Mg Tab) 50 mg PO QHS PRN PRN Reason: Insomnia Last Admin: 10/19/21 01:56 Dose: 50 mg Valproic Acid (Valproic Acid 250 Mg Cap) 250 mg PO BID [facility] Last Admin: 10/18/21 21:21 Dose: 250 mg Ziprasidone (Ziprasidone Mesylate 20 Mg Vial) 20 mg IM Q6H PRN PRN Reason: Agitation Results - Results Labs/Vitals: Laboratory Last Values WBC 13.7 K/mm3 (4.5-11.0) H 10/19/21 05:26 RBC 4.48 M/mm3 (3.65-5.03) 10/19/21 05:26 Hgb 14.1 gm/dl (11.8-15.2) 10/19/21 05:26 Hct 41.7 % (35.5-45.6) 10/19/21 05:26 MCV 93 fl (84-94) 10/19/21 05:26 MCH 32 pg (28-32) 10/19/21 05:26 MCHC 34 % (32-34) 10/19/21 05:26 RDW 14.4 % (13.2-15.2) 10/19/21 05:26 Plt Count 138 K/mm3 (140-440) L 10/19/21 05:26 Sodium 141 mmol/L (137-145) 10/19/21 05:26 Potassium 3.6 mmol/L (3.6-5.0) 10/19/21 05:26 Chloride 105.9 mmol/L (98-107) 10/19/21 05:26 Carbon Dioxide 24 mmol/L (22-30) 10/19/21 05:26 Anion Gap 15 mmol/L 10/19/21 05:26 BUN 18 mg/dL (9-20) 10/19/21 05:26 Creatinine 0.9 mg/dL (0.8-1.3) 10/19/21 05:26 Estimated GFR > 60 ml/min 10/19/21 05:26 BUN/Creatinine Ratio 20 % 10/19/21 05:26 Glucose 108 mg/dL (75-100) H 10/19/21 05:26 POC Glucose 73 mg/dL (70-105) 10/16/21 06:38 Hemoglobin A1c 5.6 % (4-6) 10/19/21 05:26 Calcium 9.1 mg/dL (8.4-10.2) 10/19/21 05:26 Triglycerides 203 mg/dL (2-149) H 10/19/21 05:26 Cholesterol 115 mg/dL (50-199) 10/19/21 05:26 LDL Cholesterol Direct 47 mg/dL (50-130) L 10/19/21 05:26 HDL Cholesterol 28 mg/dL (40-59) L 10/19/21 05:26 Cholesterol/HDL Ratio 4.10 % 10/19/21 05:26 TSH 6.160 mlU/mL (0.270-4.200) H 10/19/21 05:26 Valproic Acid 43.8 ug/mL (50-100) L 10/19/21 05:26 Hepatitis A IgM Ab Non-reactive (NonReactive) 10/19/21 05:26 Hep Bs Antigen Non-reactive (Negative) 10/19/21 05:26 Hep B Core IgM Ab Non-reactive (NonReactive) 10/19/21 05:26 Hepatitis C Antibody Non-reactive (NonReactive) 10/19/21 05:26 Last Vital Signs Temp 98.1 F 10/18/21 20:00 Pulse 123 H 10/18/21 20:00 Resp 18 10/18/21 20:00 BP 124/60 10/18/21 20:00 Pulse Ox 98 10/18/21 20:00
[2021-10-19] MEDS: LEVOTHYROXINE 25 MCG TAB PO SCH (11:33)
[2021-10-19] MEDS: hydroCHLOROthiazide 12.5 MG CAP PO SCH (11:33)
[2021-10-19] MEDS: CHOLECALCIFEROL (VIT D3) 5,000 UNIT TAB PO SCH (11:34)
[2021-10-19] MEDS: LISINOPRIL 10 MG TAB PO SCH (11:34)
[2021-10-19] MEDS: EZETIMIBE 10 MG TAB PO SCH (11:34)
[2021-10-19] MEDS: VALPROIC ACID 250 MG CAP PO SCH ×2 (11:34→20:59)
--- NOTE | 2021-10-19 15:53 | Progress Note ---
Assessment and Plan Assessment and plan: Assessment and Plan (1) Vascular dementia with behavior disturbance Current Visit: Yes Status: Acute Plan to address problem: continue anti-psych medicine verbal redirection benzodiazepine therapy PRN (2) Cerebral atherosclerosis Current Visit: Yes Status: Acute Plan to address problem: Antiplatelet therapy (3) Hypothyroidism Current Visit: Yes Status: Acute Plan to address problem: Continue Synthroid therapy supportive care. (4) Bipolar disorder Current Visit: Yes Status: Acute Plan to address problem: Continue cognitive behavioral therapy supportive care. (5) Hypertension Current Visit: Yes Status: Acute Qualifiers: Monitor blood pressure Continue anti-hypertensive History Interval history: 10/18/21-Patient seen at bedside. patient nurse present. patient denies any distress. reviewed V/S and is stable. 10/19/21-patient seen at bedsidepatient resting. Patient denies any distress. Hospitalist Physical - Constitutional Vitals: Temp Pulse Resp BP Pulse Ox 98.1 F 72 18 125/62 98 10/18/21 20:00 10/19/21 11:34 10/18/21 20:00 10/19/21 11:34 10/18/21 20:00 General appearance: Present: no acute distress - Respiratory Respiratory: bilateral: CTA - Extremities Extremities: no ischemia - Abdominal General gastrointestinal: non-tender - Integumentary Integumentary: Present: warm - Psychiatric Psychiatric: cooperative - Allied Health Allied health notes reviewed: nursing Results - Labs CBC & Chem 7: 10/19/21 05:26 10/19/21 05:26 Labs: Laboratory Last Values WBC 13.7 K/mm3 (4.5-11.0) H 10/19/21 05:26 RBC 4.48 M/mm3 (3.65-5.03) 10/19/21 05:26 Hgb 14.1 gm/dl (11.8-15.2) 10/19/21 05:26 Hct 41.7 % (35.5-45.6) 10/19/21 05:26 MCV 93 fl (84-94) 10/19/21 05:26 MCH 32 pg (28-32) 10/19/21 05:26 MCHC 34 % (32-34) 10/19/21 05:26 RDW 14.4 % (13.2-15.2) 10/19/21 05:26 Plt Count 138 K/mm3 (140-440) L 10/19/21 05:26 Sodium 141 mmol/L (137-145) 10/19/21 05:26 Potassium 3.6 mmol/L (3.6-5.0) 10/19/21 05:26 Chloride 105.9 mmol/L (98-107) 10/19/21 05:26 Carbon Dioxide 24 mmol/L (22-30) 10/19/21 05:26 Anion Gap 15 mmol/L 10/19/21 05:26 BUN 18 mg/dL (9-20) 10/19/21 05:26 Creatinine 0.9 mg/dL (0.8-1.3) 10/19/21 05:26 Estimated GFR > 60 ml/min 10/19/21 05:26 BUN/Creatinine Ratio 20 % 10/19/21 05:26 Glucose 108 mg/dL (75-100) H 10/19/21 05:26 POC Glucose 73 mg/dL (70-105) 10/16/21 06:38 Hemoglobin A1c 5.6 % (4-6) 10/19/21 05:26 Calcium 9.1 mg/dL (8.4-10.2) 10/19/21 05:26 Triglycerides 203 mg/dL (2-149) H 10/19/21 05:26 Cholesterol 115 mg/dL (50-199) 10/19/21 05:26 LDL Cholesterol Direct 47 mg/dL (50-130) L 10/19/21 05:26 HDL Cholesterol 28 mg/dL (40-59) L 10/19/21 05:26 Cholesterol/HDL Ratio 4.10 % 10/19/21 05:26 TSH 6.160 mlU/mL (0.270-4.200) H 10/19/21 05:26 Valproic Acid 43.8 ug/mL (50-100) L 10/19/21 05:26 Hepatitis A IgM Ab Non-reactive (NonReactive) 10/19/21 05:26 Hep Bs Antigen Non-reactive (Negative) 10/19/21 05:26 Hep B Core IgM Ab Non-reactive (NonReactive) 10/19/21 05:26 Hepatitis C Antibody Non-reactive (NonReactive) 10/19/21 05:26 Campbell/IV: Voiding Method Incontinent Active Medications - Current Medications Current Medications: Generic Name Dose Route Start Last Admin Trade Name Jesus Alberto PRN Reason Stop Dose Admin Atorvastatin Calcium 40 mg 10/15/21 22:00 10/18/21 21:21 Atorvastatin 40 Mg Tab PO 40 mg HS ARTEM Administration Cholecalciferol 5,000 unit 10/15/21 11:00 10/19/21 11:34 Cholecalciferol (Vit D3) 5,000 Unit Tab PO 5,000 unit DAILY ARTEM Administration Ezetimibe 10 mg 10/15/21 12:00 10/19/21 11:34 Ezetimibe 10 Mg Tab PO 10 mg 1200 ARTEM Administration Gabapentin 300 mg 10/15/21 08:34 10/19/21 01:56 Gabapentin 300 Mg Cap PO 300 mg HS PRN Administration Pain , Severe (7-10) Hydrochlorothiazide 12.5 mg 10/15/21 11:00 10/19/21 11:33 Hydrochlorothiazide 12.5 Mg Cap PO 12.5 mg DAILY ARTEM Administration Levothyroxine Sodium 25 mcg 10/15/21 11:00 10/19/21 11:33 Levothyroxine 25 Mcg Tab PO 25 mcg DAILY ARTEM Administration Lisinopril 10 mg 10/15/21 11:00 10/19/21 11:34 Lisinopril 10 Mg Tab PO 10 mg DAILY ARTEM Administration Memantine 5 mg 10/15/21 11:00 10/19/21 10:35 Memantine 5 Mg Tab PO 5 mg BID ARTEM Administration Risperidone 0.5 mg 10/19/21 22:00 Risperidone 0.25 Mg Tab PO BID ARTEM Tamsulosin HCl 0.4 mg 10/15/21 22:00 10/18/21 21:21 Tamsulosin 0.4 Mg Cap PO 0.4 mg HS ARTEM Administration Trazodone HCl 50 mg 10/15/21 08:36 10/19/21 01:56 Trazodone 50 Mg Tab PO 50 mg QHS PRN Administration Insomnia Valproic Acid 250 mg 10/15/21 11:00 10/19/21 11:34 Valproic Acid 250 Mg Cap PO 250 mg BID ARTEM Administration Ziprasidone 20 mg 10/17/21 10:00 Ziprasidone Mesylate 20 Mg Vial IM Q6H PRN Agitation
[2021-10-19] MEDS: TAMSULOSIN 0.4 MG CAP PO SCH (20:59)
[2021-10-19] MEDS: risperiDONE 0.25 MG TAB PO SCH (20:59)
--- NOTE | 2021-10-20 08:58 | Progress Note ---
Subjective Date of service: 10/20/21 Subjective Comment: 10/20: The patient was seen today. The patient is alert and oriented x1. He reports doing well " trying to make it." he continues to present with some confusion. No aggressive behavior reported. No changes made today. 10/19:The patient was seen resting quietly in bed. He is calm and cooperative. He is requesting for breakfast. Per nurse, " Pt alert but confused. Slept approximately for 5 hours during the night." 10/18: The patient was seen resting quietly in bed. Per nurse, the patient had an uneventful night. 10/17: The patient was seen resting quietly in bed. per nurse, " He presents as confused and forgetful. His appetite is improving and he was medication compliant. He had to be assisted with putting the cup to his mouth due to his confusion. He had no agitation throughout the evening. Overnight the patient slept until around 3 am. A female peer was yelling out and he went to her door and stood in the doorway. He was rubbing his left leg and stated it hurt. He could not be convinced to leave the other patients door. Patient presented as experiencing visual hallucinations. He was following unseen objects with his eyes. Patient could not be redirected without becoming angry. Geodon 20 mg IM was given for increasing agitation. He was assisted to bed where he stayed and rested. He did not sleep much but did not come back out of his ro om. Patient slept around 5 hours." Start Risperidone 1mg po BID REVIEW OF SYSTEMS MENTAL STATUS EXAMINATION Diagnoses: Dementia with behavioral disturbances Treatment Plan: Patient admitted for inpatient psychiatric evaluation, medication adjustment and close monitoring The patient's behavior, mood, sleep and appetite will be closely monitored. Patient enrolled in individual and group therapeutic sessions and encouraged to attend. Patient provided with a safe and structured environment. Patient's physical health needs will be addressed by the Hospitalist. Hospitalist Consulted Labs including CBC, CMP, Lipid profile and Hemoglobin A1C levels ordered for baseline reference Social Assessment will be completed and the Foreign Exchange Position Clerk will work with patient and family to ensure a suitable and safe disposition Medication adjustment will be made as clinically indicated Continue home meds Usual Wellness Moravian/Preservation: - Start Trazodone 50 mg po QHS & 50 mg po QHS PRN between 10 PM & 2 AM for insomnia - Start Melatonin 5 mg po QHS to promote circadian rhythm The patient agreed on the treatment plan, understood the risk, benefit, alternative treatment, potential consequence of no treatment, and gave informed consent. Estimated days: 7 Medications and Allergies Medications and Allergies Allergies Allergy/AdvReac Type Severity Reaction Status Date / Time No Known Allergies Allergy Unverified 10/14/21 05:50 Home Medications Medication Instructions Recorded Confirmed Last Taken Type AtorvaSTATin [Lipitor] 40 mg PO HS 10/15/21 10/15/21 Unknown History Cholecalciferol (Vitamin D3) 5,000 units PO DAILY 10/15/21 10/15/21 Unknown History [Vitamin D3] Ezetimibe [Zetia] 10 mg PO 1200 10/15/21 10/15/21 Unknown History Gabapentin 300 mg PO HS PRN 10/15/21 10/15/21 Unknown History Levothyroxine [Synthroid] 25 mg PO DAILY 10/15/21 10/15/21 Unknown History Memantine 5 mg PO BID 10/15/21 10/15/21 Unknown History OLANzapine [ZyPREXA] 2.5 mg PO HS 10/15/21 10/15/21 Unknown History Tamsulosin [Flomax] 40 mg PO HS 10/15/21 10/15/21 Unknown History Valproic Acid [Depakene] 250 mg PO BID 10/15/21 10/15/21 Unknown History hydroCHLOROthiazide 12.5 mg PO DAILY 10/15/21 10/15/21 Unknown History [Hydrochlorothiazide] lisinopriL [Lisinopril] 10 mg PO DAILY 10/15/21 10/15/21 Unknown History Active Meds: Active Medications Atorvastatin Calcium (Atorvastatin 40 Mg Tab) 40 mg PO HS [facility] Last Admin: 10/19/21 20:59 Dose: 40 mg Cholecalciferol (Cholecalciferol (Vit D3) 5,000 Unit Tab) 5,000 unit PO DAILY [facility] Last Admin: 10/19/21 11:34 Dose: 5,000 unit Ezetimibe (Ezetimibe 10 Mg Tab) 10 mg PO 1200 [facility] Last Admin: 10/19/21 11:34 Dose: 10 mg Gabapentin (Gabapentin 300 Mg Cap) 300 mg PO HS PRN PRN Reason: Pain , Severe (7-10) Last Admin: 10/19/21 20:58 Dose: 300 mg Hydrochlorothiazide (Hydrochlorothiazide 12.5 Mg Cap) 12.5 mg PO DAILY [facility] Last Admin: 10/19/21 11:33 Dose: 12.5 mg Levothyroxine Sodium (Levothyroxine 25 Mcg Tab) 25 mcg PO DAILY [facility] Last Admin: 10/19/21 11:33 Dose: 25 mcg Lisinopril (Lisinopril 10 Mg Tab) 10 mg PO DAILY [facility] Last Admin: 10/19/21 11:34 Dose: 10 mg Memantine (Memantine 5 Mg Tab) 5 mg PO BID [facility] Last Admin: 10/19/21 20:59 Dose: 5 mg Risperidone (Risperidone 0.25 Mg Tab) 0.5 mg PO BID [facility] Last Admin: 10/19/21 20:59 Dose: 0.5 mg Tamsulosin HCl (Tamsulosin 0.4 Mg Cap) 0.4 mg PO HS [facility] Last Admin: 10/19/21 20:59 Dose: 0.4 mg Trazodone HCl (Trazodone 50 Mg Tab) 50 mg PO QHS PRN PRN Reason: Insomnia Last Admin: 10/19/21 20:59 Dose: 50 mg Valproic Acid (Valproic Acid 250 Mg Cap) 250 mg PO BID [facility] Last Admin: 10/19/21 20:59 Dose: 250 mg Ziprasidone (Ziprasidone Mesylate 20 Mg Vial) 20 mg IM Q6H PRN PRN Reason: Agitation Results - Results Labs/Vitals: Laboratory Last Values WBC 13.7 K/mm3 (4.5-11.0) H 10/19/21 05:26 RBC 4.48 M/mm3 (3.65-5.03) 10/19/21 05:26 Hgb 14.1 gm/dl (11.8-15.2) 10/19/21 05:26 Hct 41.7 % (35.5-45.6) 10/19/21 05:26 MCV 93 fl (84-94) 10/19/21 05:26 MCH 32 pg (28-32) 10/19/21 05:26 MCHC 34 % (32-34) 10/19/21 05:26 RDW 14.4 % (13.2-15.2) 10/19/21 05:26 Plt Count 138 K/mm3 (140-440) L 10/19/21 05:26 Sodium 141 mmol/L (137-145) 10/19/21 05:26 Potassium 3.6 mmol/L (3.6-5.0) 10/19/21 05:26 Chloride 105.9 mmol/L (98-107) 10/19/21 05:26 Carbon Dioxide 24 mmol/L (22-30) 10/19/21 05:26 Anion Gap 15 mmol/L 10/19/21 05:26 BUN 18 mg/dL (9-20) 10/19/21 05:26 Creatinine 0.9 mg/dL (0.8-1.3) 10/19/21 05:26 Estimated GFR > 60 ml/min 10/19/21 05:26 BUN/Creatinine Ratio 20 % 10/19/21 05:26 Glucose 108 mg/dL (75-100) H 10/19/21 05:26 POC Glucose 73 mg/dL (70-105) 10/16/21 06:38 Hemoglobin A1c 5.6 % (4-6) 10/19/21 05:26 Calcium 9.1 mg/dL (8.4-10.2) 10/19/21 05:26 Triglycerides 203 mg/dL (2-149) H 10/19/21 05:26 Cholesterol 115 mg/dL (50-199) 10/19/21 05:26 LDL Cholesterol Direct 47 mg/dL (50-130) L 10/19/21 05:26 HDL Cholesterol 28 mg/dL (40-59) L 10/19/21 05:26 Cholesterol/HDL Ratio 4.10 % 10/19/21 05:26 TSH 6.160 mlU/mL (0.270-4.200) H 10/19/21 05:26 Valproic Acid 43.8 ug/mL (50-100) L 10/19/21 05:26 Hepatitis A IgM Ab Non-reactive (NonReactive) 10/19/21 05:26 Hep Bs Antigen Non-reactive (Negative) 10/19/21 05:26 Hep B Core IgM Ab Non-reactive (NonReactive) 10/19/21 05:26 Hepatitis C Antibody Non-reactive (NonReactive) 10/19/21 05:26 Last Vital Signs Temp 97.4 F L 10/20/21 08:01 Pulse 63 10/20/21 08:01 Resp 16 10/20/21 08:01 BP 134/71 10/20/21 08:01 Pulse Ox 98 10/20/21 08:01
[2021-10-20] MEDS: MEMANTINE 5 MG TAB PO SCH ×2 (09:44→21:39)
[2021-10-20] MEDS: risperiDONE 0.25 MG TAB PO SCH ×2 (09:44→21:39)
[2021-10-20] MEDS: hydroCHLOROthiazide 12.5 MG CAP PO SCH (09:44)
[2021-10-20] MEDS: VALPROIC ACID 250 MG CAP PO SCH ×2 (09:44→21:38)
[2021-10-20] MEDS: LEVOTHYROXINE 25 MCG TAB PO SCH (09:45)
[2021-10-20] MEDS: LISINOPRIL 10 MG TAB PO SCH (09:45)
[2021-10-20] MEDS: CHOLECALCIFEROL (VIT D3) 5,000 UNIT TAB PO SCH (09:45)
[2021-10-20] MEDS: EZETIMIBE 10 MG TAB PO SCH (11:44)
--- NOTE | 2021-10-20 11:54 | Progress Note ---
<NENITA GONZALES - Last Filed: 10/20/21 11:49> Assessment and Plan - Patient Problems (1) Leukocytosis Current Visit: Yes Status: Acute Plan to address problem: Afebrile, vitals WNL UA, and labs pending no abx for now, continue to trend cbc and f.u pending labs (2) Hypertension Current Visit: Yes Status: Acute Qualifiers: Hypertension type: primary hypertension Qualified Code(s): I10 - Essential (primary) hypertension Plan to address problem: Monitor blood pressure per protocol Continue Lisinopril and HCTZ on heart healthy diet (3) BPH (benign prostatic hyperplasia) Current Visit: Yes Status: Acute Plan to address problem: On Flomax Monitor for s/s of urinary retention (4) Hypothyroidism Current Visit: Yes Status: Acute Plan to address problem: On Synthroid (5) Cerebral atherosclerosis Current Visit: Yes Status: Acute Plan to address problem: On antiplatelet therapy On statin and Zetia (6) Bipolar disorder Current Visit: Yes Status: Acute Plan to address problem: mgmt per primary (7) Vascular dementia with behavior disturbance Current Visit: Yes Status: Acute Plan to address problem: continue anti-psych medicine mgmt per primary History Interval history: 80-year-old male with history of HTN, hypothyroidism vascular dementia, cerebral atherosclerosis, and bipolar disorder who was admitted after being found to be danger to self, others, and failure of outpatient treatment. He is seen in room (510) this morning sitting in May-chair, oriented to self. He denies self harm or harming others. No overnight events reported. Hospitalist Physical - Constitutional Vitals: Temp Pulse Resp BP Pulse Ox 97.4 F L 63 16 134/71 98 10/20/21 08:01 10/20/21 09:45 10/20/21 08:01 10/20/21 09:45 10/20/21 08:01 General appearance: Present: no acute distress, other (Oriented to self) - EENT Eyes: Present: PERRL, EOM intact ENT: hearing intact, clear oral mucosa, other (missing teeth) - Neck Neck: Present: supple, normal ROM - Respiratory Respiratory effort: normal Respiratory: bilateral: CTA - Cardiovascular Rhythm: regular Heart Sounds: Present: S1 & S2, click. Absent: systolic murmur, diastolic murmur, rub - Extremities Extremities: pulses intact, pulses symmetrical, No edema Peripheral Pulses: within normal limits - Abdominal General gastrointestinal: soft, non-tender, non-distended, normal bowel sounds - Integumentary Integumentary: Present: clear, warm, dry - Psychiatric Psychiatric: cooperative - Neurologic Neurologic: CNII-XII intact Results - Labs CBC & Chem 7: 10/19/21 05:26 10/19/21 05:26 Labs: Laboratory Last Values WBC 13.7 K/mm3 (4.5-11.0) H 10/19/21 05:26 RBC 4.48 M/mm3 (3.65-5.03) 10/19/21 05:26 Hgb 14.1 gm/dl (11.8-15.2) 10/19/21 05:26 Hct 41.7 % (35.5-45.6) 10/19/21 05:26 MCV 93 fl (84-94) 10/19/21 05:26 MCH 32 pg (28-32) 10/19/21 05:26 MCHC 34 % (32-34) 10/19/21 05:26 RDW 14.4 % (13.2-15.2) 10/19/21 05:26 Plt Count 138 K/mm3 (140-440) L 10/19/21 05:26 Sodium 141 mmol/L (137-145) 10/19/21 05:26 Potassium 3.6 mmol/L (3.6-5.0) 10/19/21 05:26 Chloride 105.9 mmol/L (98-107) 10/19/21 05:26 Carbon Dioxide 24 mmol/L (22-30) 10/19/21 05:26 Anion Gap 15 mmol/L 10/19/21 05:26 BUN 18 mg/dL (9-20) 10/19/21 05:26 Creatinine 0.9 mg/dL (0.8-1.3) 10/19/21 05:26 Estimated GFR > 60 ml/min 10/19/21 05:26 BUN/Creatinine Ratio 20 % 10/19/21 05:26 Glucose 108 mg/dL (75-100) H 10/19/21 05:26 POC Glucose 73 mg/dL (70-105) 10/16/21 06:38 Hemoglobin A1c 5.6 % (4-6) 10/19/21 05:26 Calcium 9.1 mg/dL (8.4-10.2) 10/19/21 05:26 Triglycerides 203 mg/dL (2-149) H 10/19/21 05:26 Cholesterol 115 mg/dL (50-199) 10/19/21 05:26 LDL Cholesterol Direct 47 mg/dL (50-130) L 10/19/21 05:26 HDL Cholesterol 28 mg/dL (40-59) L 10/19/21 05:26 Cholesterol/HDL Ratio 4.10 % 10/19/21 05:26 TSH 6.160 mlU/mL (0.270-4.200) H 10/19/21 05:26 Valproic Acid 43.8 ug/mL (50-100) L 10/19/21 05:26 Hepatitis A IgM Ab Non-reactive (NonReactive) 10/19/21 05:26 Hep Bs Antigen Non-reactive (Negative) 10/19/21 05:26 Hep B Core IgM Ab Non-reactive (NonReactive) 10/19/21 05:26 Hepatitis C Antibody Non-reactive (NonReactive) 10/19/21 05:26 Campbell/IV: Voiding Method Toilet Active Medications - Current Medications Current Medications: Generic Name Dose Route Start Last Admin Trade Name Freq PRN Reason Stop Dose Admin Aspirin 81 mg 10/20/21 12:00 Aspirin 81 Mg Tab Chew PO QDAY ARTEM Atorvastatin Calcium 40 mg 10/15/21 22:00 10/19/21 20:59 Atorvastatin 40 Mg Tab PO 40 mg HS ARTEM Administration Cholecalciferol 5,000 unit 10/15/21 11:00 10/20/21 09:45 Cholecalciferol (Vit D3) 5,000 Unit Tab PO 5,000 unit DAILY [facility] Administration Ezetimibe 10 mg 10/15/21 12:00 10/20/21 11:44 Ezetimibe 10 Mg Tab PO 10 mg 1200 [facility]EM Administration Gabapentin 300 mg 10/15/21 08:34 10/19/21 20:58 Gabapentin 300 Mg Cap PO 300 mg HS PRN Administration Pain , Severe (7-10) Hydrochlorothiazide 12.5 mg 10/15/21 11:00 10/20/21 09:44 Hydrochlorothiazide 12.5 Mg Cap PO 12.5 mg DAILY ARTEM Administration Levothyroxine Sodium 25 mcg 10/15/21 11:00 10/20/21 09:45 Levothyroxine 25 Mcg Tab PO 25 mcg DAILY ARTEM Administration Lisinopril 10 mg 10/15/21 11:00 10/20/21 09:45 Lisinopril 10 Mg Tab PO 10 mg DAILY ARTEM Administration Memantine 5 mg 10/15/21 11:00 10/20/21 09:44 Memantine 5 Mg Tab PO 5 mg BID ARTEM Administration Risperidone 0.5 mg 10/19/21 22:00 10/20/21 09:44 Risperidone 0.25 Mg Tab PO 0.5 mg BID ARTEM Administration Risperidone 0.5 mg 10/20/21 22:00 Risperidone 0.25 Mg Tab PO QHS ARTEM Tamsulosin HCl 0.4 mg 10/15/21 22:00 10/19/21 20:59 Tamsulosin 0.4 Mg Cap PO 0.4 mg HS ARTEM Administration Trazodone HCl 50 mg 10/15/21 08:36 10/19/21 20:59 Trazodone 50 Mg Tab PO 50 mg QHS PRN Administration Insomnia Valproic Acid 250 mg 10/15/21 11:00 10/20/21 09:44 Valproic Acid 250 Mg Cap PO 250 mg BID ARTEM Administration Ziprasidone 20 mg 10/17/21 10:00 Ziprasidone Mesylate 20 Mg Vial IM Q6H PRN Agitation <CARLOTA ACOSTA - Last Filed: 10/20/21 16:35> Assessment and Plan Assessment and plan: I saw and evaluated the patient. I agree with the findings and the plan of care as documented in the Nurse Practitioner's~note, with the following corrections and additions. Hospitalist Physical - Constitutional Vitals: Temp Pulse Resp BP Pulse Ox 97.4 F L 112 H 16 109/66 96 10/20/21 08:01 10/20/21 12:47 10/20/21 08:01 10/20/21 12:47 10/20/21 12:47 Results - Labs CBC & Chem 7: 10/19/21 05:26 10/19/21 05:26 Labs: Laboratory Last Values WBC 13.7 K/mm3 (4.5-11.0) H 10/19/21 05:26 RBC 4.48 M/mm3 (3.65-5.03) 10/19/21 05:26 Hgb 14.1 gm/dl (11.8-15.2) 10/19/21 05:26 Hct 41.7 % (35.5-45.6) 10/19/21 05:26 MCV 93 fl (84-94) 10/19/21 05:26 MCH 32 pg (28-32) 10/19/21 05:26 MCHC 34 % (32-34) 10/19/21 05:26 RDW 14.4 % (13.2-15.2) 10/19/21 05:26 Plt Count 138 K/mm3 (140-440) L 10/19/21 05:26 Sodium 141 mmol/L (137-145) 10/19/21 05:26 Potassium 3.6 mmol/L (3.6-5.0) 10/19/21 05:26 Chloride 105.9 mmol/L (98-107) 10/19/21 05:26 Carbon Dioxide 24 mmol/L (22-30) 10/19/21 05:26 Anion Gap 15 mmol/L 10/19/21 05:26 BUN 18 mg/dL (9-20) 10/19/21 05:26 Creatinine 0.9 mg/dL (0.8-1.3) 10/19/21 05:26 Estimated GFR > 60 ml/min 10/19/21 05:26 BUN/Creatinine Ratio 20 % 10/19/21 05:26 Glucose 108 mg/dL (75-100) H 10/19/21 05:26 POC Glucose 73 mg/dL (70-105) 10/16/21 06:38 Hemoglobin A1c 5.6 % (4-6) 10/19/21 05:26 Calcium 9.1 mg/dL (8.4-10.2) 10/19/21 05:26 Triglycerides 203 mg/dL (2-149) H 10/19/21 05:26 Cholesterol 115 mg/dL (50-199) 10/19/21 05:26 LDL Cholesterol Direct 47 mg/dL (50-130) L 10/19/21 05:26 HDL Cholesterol 28 mg/dL (40-59) L 10/19/21 05:26 Cholesterol/HDL Ratio 4.10 % 10/19/21 05:26 TSH 6.160 mlU/mL (0.270-4.200) H 10/19/21 05:26 Valproic Acid 43.8 ug/mL (50-100) L 10/19/21 05:26 Hepatitis A IgM Ab Non-reactive (NonReactive) 10/19/21 05:26 Hep Bs Antigen Non-reactive (Negative) 10/19/21 05:26 Hep B Core IgM Ab Non-reactive (NonReactive) 10/19/21 05:26 Hepatitis C Antibody Non-reactive (NonReactive) 10/19/21 05:26 Campbell/IV: Voiding Method Toilet Active Medications - Current Medications Current Medications: Generic Name Dose Route Start Last Admin Trade Name Freq PRN Reason Stop Dose Admin Aspirin 81 mg 10/20/21 12:00 10/20/21 11:58 Aspirin 81 Mg Tab Chew PO 81 mg QDAY [facility] Administration Atorvastatin Calcium 40 mg 10/15/21 22:00 10/19/21 20:59 Atorvastatin 40 Mg Tab PO 40 mg HS [facility]EM Administration Cholecalciferol 5,000 unit 10/15/21 11:00 10/20/21 09:45 Cholecalciferol (Vit D3) 5,000 Unit Tab PO 5,000 unit DAILY [facility] Administration Ezetimibe 10 mg 10/15/21 12:00 10/20/21 11:44 Ezetimibe 10 Mg Tab PO 10 mg 1200 [facility] Administration Gabapentin 300 mg 10/15/21 08:34 10/19/21 20:58 Gabapentin 300 Mg Cap PO 300 mg HS PRN Administration Pain , Severe (7-10) Hydrochlorothiazide 12.5 mg 10/15/21 11:00 10/20/21 09:44 Hydrochlorothiazide 12.5 Mg Cap PO 12.5 mg DAILY [facility] Administration Levothyroxine Sodium 25 mcg 10/15/21 11:00 10/20/21 09:45 Levothyroxine 25 Mcg Tab PO 25 mcg DAILY [facility] Administration Lisinopril 10 mg 10/15/21 11:00 10/20/21 09:45 Lisinopril 10 Mg Tab PO 10 mg DAILY [facility] Administration Memantine 5 mg 10/15/21 11:00 10/20/21 09:44 Memantine 5 Mg Tab PO 5 mg BID [facility] Administration Risperidone 0.5 mg 10/19/21 22:00 10/20/21 09:44 Risperidone 0.25 Mg Tab PO 0.5 mg BID ARTEM Administration Risperidone 0.5 mg 10/20/21 22:00 Risperidone 0.25 Mg Tab PO QHS ARTEM Tamsulosin HCl 0.4 mg 10/15/21 22:00 10/19/21 20:59 Tamsulosin 0.4 Mg Cap PO 0.4 mg HS ARTEM Administration Trazodone HCl 50 mg 10/15/21 08:36 10/19/21 20:59 Trazodone 50 Mg Tab PO 50 mg QHS PRN Administration Insomnia Valproic Acid 250 mg 10/15/21 11:00 10/20/21 09:44 Valproic Acid 250 Mg Cap PO 250 mg BID ARTEM Administration Ziprasidone 20 mg 10/17/21 10:00 Ziprasidone Mesylate 20 Mg Vial IM Q6H PRN Agitation
[2021-10-20] MEDS: ASPIRIN 81 MG TAB CHEW PO SCH (11:58)
[2021-10-20] MEDS: TAMSULOSIN 0.4 MG CAP PO SCH (21:38)
[2021-10-20 23:47] LABS: Hematocrit 42.4 % (35.5-45.6); Hemoglobin 14.1 gm/dl (11.8-15.2); Mean Corpuscular HGB Conc 33 % (32-34); Mean Corpuscular Volume 95 fl (84-94); Platelet Count 117 K/mm3 (140-440); Red Blood Count 4.46 M/mm3 (3.65-5.03); Red Cell Distribution Width 14.7 % (13.2-15.2)
[2021-10-21 00:01] LABS: BUN/Creatinine Ratio 16; Blood Urea Nitrogen 18 mg/dL (9-20); Calcium 8.9 mg/dL (8.4-10.2); Hemolysis Index 18
[2021-10-21] MEDS: traZODone 50 MG TAB PO PRN ×2 (00:39→22:04)
[2021-10-21] MEDS: GABAPENTIN 300 MG CAP PO PRN ×2 (00:39→22:04)
[2021-10-21 03:00] LABS: Basophils % (Manual) 0 % (0.0-1.8); Eosinophils % (Manual) 0 % (0.0-4.3); Total Cells Counted 100
[2021-10-21 03:01] LABS: Platelet Estimate Consistent w Auto; RBC Morphology Normal
[2021-10-21] MEDS ORDERED: LISINOPRIL 10 MG TAB PO SCH (09:55)
--- NOTE | 2021-10-21 09:55 | Progress Note ---
<NENITA GONZALES - Last Filed: 10/21/21 09:51> Assessment and Plan - Patient Problems (1) Leukocytosis Status: Acute Plan to address problem: Improving Afebrile, vitals WNL no abx for now, continue to trend cbc and f.u pending labs (2) Hypertension Status: Acute Qualifiers: Hypertension type: primary hypertension Qualified Code(s): I10 - Essential (primary) hypertension Plan to address problem: Monitor blood pressure per protocol Continue Lisinopril and HCTZ on heart healthy diet (3) BPH (benign prostatic hyperplasia) Status: Acute Plan to address problem: On Flomax Monitor for s/s of urinary retention (4) Hypothyroidism Status: Acute Plan to address problem: On Synthroid (5) Cerebral atherosclerosis Status: Acute Plan to address problem: On antiplatelet therapy On statin and Zetia (6) Bipolar disorder Status: Acute Plan to address problem: mgmt per primary (7) Vascular dementia with behavior disturbance Status: Acute Plan to address problem: continue anti-psych medicine mgmt per primary History Interval history: 80-year-old male with history of HTN, hypothyroidism vascular dementia, cerebral atherosclerosis, and bipolar disorder who was admitted after being found to be danger to self, others, and failure of outpatient treatment. Pt seen in bed (room 510) this morning, oriented to self. He denies self harm or harming others. No overnight events reported. Hospitalist Physical - Physical exam Narrative exam: General appearance: Present: no acute distress, other (Oriented to self) - EENT Eyes: Present: PERRL, EOM intact ENT: hearing intact, clear oral mucosa, other (missing teeth) - Neck Neck: Present: supple, normal ROM - Respiratory Respiratory effort: normal Respiratory: bilateral: CTA - Cardiovascular Rhythm: regular Heart Sounds: Present: S1 & S2, click. Absent: systolic murmur, diastolic murmur, rub - Extremities Extremities: pulses intact, pulses symmetrical, No edema Peripheral Pulses: within normal limits - Abdominal General gastrointestinal: soft, non-tender, non-distended, normal bowel sounds - Integumentary Integumentary: Present: clear, warm, dry - Psychiatric Psychiatric: cooperative - Neurologic Neurologic: CNII-XII intact - Constitutional Vitals: Temp Pulse Resp BP Pulse Ox 97.5 F L 91 H 16 106/62 98 10/20/21 19:02 10/20/21 19:02 10/20/21 19:02 10/20/21 19:02 10/20/21 19:02 General appearance: Present: no acute distress, other (Oriented to self) Results - Labs CBC & Chem 7: 10/20/21 23:30 10/20/21 23:30 Labs: Laboratory Last Values WBC 11.4 K/mm3 (4.5-11.0) H 10/20/21 23:30 RBC 4.46 M/mm3 (3.65-5.03) 10/20/21 23:30 Hgb 14.1 gm/dl (11.8-15.2) 10/20/21 23:30 Hct 42.4 % (35.5-45.6) 10/20/21 23:30 MCV 95 fl (84-94) H 10/20/21 23:30 MCH 32 pg (28-32) 10/20/21 23:30 MCHC 33 % (32-34) 10/20/21 23:30 RDW 14.7 % (13.2-15.2) 10/20/21 23:30 Plt Count 117 K/mm3 (140-440) L 10/20/21 23:30 Lymph % (Auto) Teacher Of [employer]/Hard Of Hearing 10/20/21 23:30 Lymph # (Auto) [employer] Of Hearing 10/20/21 23:30 Add Manual Diff Complete 10/20/21 23:30 Total Counted 100 10/20/21 23:30 Seg Neutrophils % Teacher [employer]/Hard Of Hearing 10/20/21 23:30 Seg Neuts % (Manual) 27.0 % (40.0-70.0) L 10/20/21 23:30 Band Neutrophils % 0 % 10/20/21 23:30 Lymphocytes % (Manual) 69.0 % (13.4-35.0) H 10/20/21 23:30 Reactive Lymphs % (Man) 0 % 10/20/21 23:30 Monocytes % (Manual) 4.0 % (0.0-7.3) 10/20/21 23:30 Eosinophils % (Manual) 0 % (0.0-4.3) 10/20/21 23:30 Basophils % (Manual) 0 % (0.0-1.8) 10/20/21 23:30 Metamyelocytes % 0 % 10/20/21 23:30 Myelocytes % 0 % 10/20/21 23:30 Promyelocytes % 0 % 10/20/21 23:30 Blast Cells % 0 % 10/20/21 23:30 Nucleated RBC % Not Reportable 10/20/21 23:30 Seg Neutrophils # Man 3.1 K/mm3 (1.8-7.7) 10/20/21 23:30 Band Neutrophils # 0.0 K/mm3 10/20/21 23:30 Lymphocytes # (Manual) 7.9 K/mm3 (1.2-5.4) H 10/20/21 23:30 Abs React Lymphs (Man) 0.0 K/mm3 10/20/21 23:30 Monocytes # (Manual) 0.5 K/mm3 (0.0-0.8) 10/20/21 23:30 Eosinophils # (Manual) 0.0 K/mm3 (0.0-0.4) 10/20/21 23:30 Basophils # (Manual) 0.0 K/mm3 (0.0-0.1) 10/20/21 23:30 Metamyelocytes # 0.0 K/mm3 10/20/21 23:30 Myelocytes # 0.0 K/mm3 10/20/21 23:30 Promyelocytes # 0.0 K/mm3 10/20/21 23:30 Blast Cells # 0.0 K/mm3 10/20/21 23:30 WBC Morphology Not Reportable 10/20/21 23:30 Hypersegmented Neuts Not Reportable 10/20/21 23:30 Hyposegmented Neuts Not Reportable 10/20/21 23:30 Hypogranular Neuts Not Reportable 10/20/21 23:30 Smudge Cells Not Reportable 10/20/21 23:30 Toxic Granulation Not Reportable 10/20/21 23:30 Toxic Vacuolation Not Reportable 10/20/21 23:30 Dohle Bodies Not Reportable 10/20/21 23:30 Pelger-Huet Anomaly Not Reportable 10/20/21 23:30 Pamela Rods Not Reportable 10/20/21 23:30 Platelet Estimate Consistent w auto 10/20/21 23:30 Clumped Platelets Not Reportable 10/20/21 23:30 Plt Clumps, EDTA Not Reportable 10/20/21 23:30 Large Platelets Not Reportable 10/20/21 23:30 Giant Platelets Not Reportable 10/20/21 23:30 Platelet Satelliting Not Reportable 10/20/21 23:30 Plt Morphology Comment Not Reportable 10/20/21 23:30 RBC Morphology Normal 10/20/21 23:30 Dimorphic RBCs Not Reportable 10/20/21 23:30 Polychromasia Not Reportable 10/20/21 23:30 Hypochromasia Not Reportable 10/20/21 23:30 Poikilocytosis Not Reportable 10/20/21 23:30 Anisocytosis Not Reportable 10/20/21 23:30 Microcytosis Not Reportable 10/20/21 23:30 Macrocytosis Not Reportable 10/20/21 23:30 Spherocytes Not Reportable 10/20/21 23:30 Pappenheimer Bodies Not Reportable 10/20/21 23:30 Sickle Cells Not Reportable 10/20/21 23:30 Target Cells Not Reportable 10/20/21 23:30 Tear Drop Cells Not Reportable 10/20/21 23:30 Ovalocytes Not Reportable 10/20/21 23:30 Helmet Cells Not Reportable 10/20/21 23:30 Mills-Morenci Bodies Not Reportable 10/20/21 23:30 [place] Rings Not Reportable 10/20/21 23:30 Gale Cells Not Reportable 10/20/21 23:30 Bite Cells Not Reportable 10/20/21 23:30 Crenated Cell Not Reportable 10/20/21 23:30 Elliptocytes Not Reportable 10/20/21 23:30 Acanthocytes (Spur) Not Reportable 10/20/21 23:30 Rouleaux Not Reportable 10/20/21 23:30 Hemoglobin C Crystals Not Reportable 10/20/21 23:30 Schistocytes Not Reportable 10/20/21 23:30 Malaria parasites Not Reportable 10/20/21 23:30 Vidal Bodies Not Reportable 10/20/21 23:30 Hem Pathologist Commnt No 10/20/21 23:30 Sodium 143 mmol/L (137-145) 10/20/21 23:30 Potassium 3.6 mmol/L (3.6-5.0) 10/20/21 23:30 Chloride 103.5 mmol/L (98-107) 10/20/21 23:30 Carbon Dioxide 28 mmol/L (22-30) 10/20/21 23:30 Anion Gap 15 mmol/L 10/20/21 23:30 BUN 18 mg/dL (9-20) 10/20/21 23:30 Creatinine 1.1 mg/dL (0.8-1.3) 10/20/21 23:30 Estimated GFR > 60 ml/min 10/20/21 23:30 BUN/Creatinine Ratio 16 % 10/20/21 23:30 Glucose 124 mg/dL (75-100) H 10/20/21 23:30 POC Glucose 73 mg/dL (70-105) 10/16/21 06:38 Hemoglobin A1c 5.6 % (4-6) 10/19/21 05:26 Calcium 8.9 mg/dL (8.4-10.2) 10/20/21 23:30 Triglycerides 203 mg/dL (2-149) H 10/19/21 05:26 Cholesterol 115 mg/dL (50-199) 10/19/21 05:26 LDL Cholesterol Direct 47 mg/dL (50-130) L 10/19/21 05:26 HDL Cholesterol 28 mg/dL (40-59) L 10/19/21 05:26 Cholesterol/HDL Ratio 4.10 % 10/19/21 05:26 TSH 6.160 mlU/mL (0.270-4.200) H 10/19/21 05:26 Valproic Acid 43.8 ug/mL (50-100) L 10/19/21 05:26 Hepatitis A IgM Ab Non-reactive (NonReactive) 10/19/21 05:26 Hep Bs Antigen Non-reactive (Negative) 10/19/21 05:26 Hep B Core IgM Ab Non-reactive (NonReactive) 10/19/21 05:26 Hepatitis C Antibody Non-reactive (NonReactive) 10/19/21 05:26 Campbell/IV: Voiding Method Toilet Active Medications - Current Medications Current Medications: Generic Name Dose Route Start Last Admin Trade Name Freq PRN Reason Stop Dose Admin Aspirin 81 mg 10/20/21 12:00 10/20/21 11:58 Aspirin 81 Mg Tab Chew PO 81 mg QDAY ARTEM Administration Atorvastatin Calcium 40 mg 10/15/21 22:00 10/20/21 21:38 Atorvastatin 40 Mg Tab PO 40 mg HS ARTEM Administration Cholecalciferol 5,000 unit 10/15/21 11:00 10/20/21 09:45 Cholecalciferol (Vit D3) 5,000 Unit Tab PO 5,000 unit DAILY ARTEM Administration Ezetimibe 10 mg 10/15/21 12:00 10/20/21 11:44 Ezetimibe 10 Mg Tab PO 10 mg 1200 ARTEM Administration Gabapentin 300 mg 10/15/21 08:34 10/21/21 00:39 Gabapentin 300 Mg Cap PO 300 mg HS PRN Administration Pain , Severe (7-10) Hydrochlorothiazide 12.5 mg 10/15/21 11:00 10/20/21 09:44 Hydrochlorothiazide 12.5 Mg Cap PO 12.5 mg DAILY ARTEM Administration Levothyroxine Sodium 25 mcg 10/15/21 11:00 10/20/21 09:45 Levothyroxine 25 Mcg Tab PO 25 mcg DAILY ARTEM Administration Lisinopril 10 mg 10/15/21 11:00 10/20/21 09:45 Lisinopril 10 Mg Tab PO 10 mg DAILY ARTEM Administration Memantine 5 mg 10/15/21 11:00 10/20/21 21:39 Memantine 5 Mg Tab PO 5 mg BID ARTEM Administration Risperidone 0.5 mg 10/20/21 22:00 10/20/21 21:39 Risperidone 0.25 Mg Tab PO 0.5 mg QHS ARTEM Administration Risperidone 0.5 mg 10/21/21 10:00 Risperidone 0.25 Mg Tab PO BID@1000,1700 ARTEM Tamsulosin HCl 0.4 mg 10/15/21 22:00 10/20/21 21:38 Tamsulosin 0.4 Mg Cap PO 0.4 mg HS ARTEM Administration Trazodone HCl 50 mg 10/15/21 08:36 10/21/21 00:39 Trazodone 50 Mg Tab PO 50 mg QHS PRN Administration Insomnia Valproic Acid 250 mg 10/15/21 11:00 10/20/21 21:38 Valproic Acid 250 Mg Cap PO 250 mg BID ARTEM Administration Ziprasidone 20 mg 10/17/21 10:00 Ziprasidone Mesylate 20 Mg Vial IM Q6H PRN Agitation <CARLOTA ACOSTA - Last Filed: 10/25/21 07:16> Assessment and Plan Assessment and plan: I saw and evaluated the patient. I agree with the findings and the plan of care as documented in the Nurse Practitioner's~note, with the following corrections and additions. Hospitalist Physical - Constitutional Vitals: Temp Pulse Resp BP Pulse Ox 98.3 F 63 16 124/50 96 10/24/21 07:25 10/24/21 10:09 10/24/21 07:25 10/24/21 10:09 10/24/21 07:25 Results - Labs CBC & Chem 7: 10/22/21 09:58 10/20/21 23:30 Labs: Laboratory Last Values WBC 13.8 K/mm3 (4.5-11.0) H 10/22/21 09:58 RBC 4.54 M/mm3 (3.65-5.03) 10/22/21 09:58 Hgb 14.3 gm/dl (11.8-15.2) 10/22/21 09:58 Hct 42.5 % (35.5-45.6) 10/22/21 09:58 MCV 94 fl (84-94) 10/22/21 09:58 MCH 32 pg (28-32) 10/22/21 09:58 MCHC 34 % (32-34) 10/22/21 09:58 RDW 14.7 % (13.2-15.2) 10/22/21 09:58 Plt Count 131 K/mm3 (140-440) L 10/22/21 09:58 Lymph % (Auto) Teacher Of [employer]/Hard Of Hearing 10/22/21 09:58 Lymph # (Auto) [employer] Of [employer] Of Hearing 10/22/21 09:58 Add Manual Diff Complete 10/22/21 09:58 Total Counted 100 10/22/21 09:58 Seg Neutrophils % Teacher Of [employer] Of Hearing 10/22/21 09:58 Seg Neuts % (Manual) 27.0 % (40.0-70.0) L 10/22/21 09:58 Band Neutrophils % 0 % 10/22/21 09:58 Lymphocytes % (Manual) 60.0 % (13.4-35.0) H 10/22/21 09:58 Reactive Lymphs % (Man) 5.0 % 10/22/21 09:58 Monocytes % (Manual) 6.0 % (0.0-7.3) 10/22/21 09:58 Eosinophils % (Manual) 2.0 % (0.0-4.3) 10/22/21 09:58 Basophils % (Manual) 0 % (0.0-1.8) 10/22/21 09:58 Metamyelocytes % 0 % 10/22/21 09:58 Myelocytes % 0 % 10/22/21 09:58 Promyelocytes % 0 % 10/22/21 09:58 Blast Cells % 0 % 10/22/21 09:58 Nucleated RBC % Not Reportable 10/22/21 09:58 Seg Neutrophils # Man 3.7 K/mm3 (1.8-7.7) 10/22/21 09:58 Band Neutrophils # 0.0 K/mm3 10/22/21 09:58 Lymphocytes # (Manual) 8.3 K/mm3 (1.2-5.4) H 10/22/21 09:58 Abs React Lymphs (Man) 0.7 K/mm3 10/22/21 09:58 Monocytes # (Manual) 0.8 K/mm3 (0.0-0.8) 10/22/21 09:58 Eosinophils # (Manual) 0.3 K/mm3 (0.0-0.4) 10/22/21 09:58 Basophils # (Manual) 0.0 K/mm3 (0.0-0.1) 10/22/21 09:58 Metamyelocytes # 0.0 K/mm3 10/22/21 09:58 Myelocytes # 0.0 K/mm3 10/22/21 09:58 Promyelocytes # 0.0 K/mm3 10/22/21 09:58 Blast Cells # 0.0 K/mm3 10/22/21 09:58 WBC Morphology Not Reportable 10/22/21 09:58 WBC Morphology TNR 10/22/21 09:58 Hypersegmented Neuts Not Reportable 10/22/21 09:58 Hyposegmented Neuts Not Reportable 10/22/21 09:58 Hypogranular Neuts Not Reportable 10/22/21 09:58 Smudge Cells Not Reportable 10/22/21 09:58 Toxic Granulation Not Reportable 10/22/21 09:58 Toxic Vacuolation Not Reportable 10/22/21 09:58 Dohle Bodies Not Reportable 10/22/21 09:58 Pelger-Huet Anomaly Not Reportable 10/22/21 09:58 Pamela Rods Not Reportable 10/22/21 09:58 Platelet Estimate Consistent w auto 10/22/21 09:58 Clumped Platelets Not Reportable 10/22/21 09:58 Plt Clumps, EDTA Not Reportable 10/22/21 09:58 Large Platelets Not Reportable 10/22/21 09:58 Giant Platelets Not Reportable 10/22/21 09:58 Platelet Satelliting Not Reportable 10/22/21 09:58 Plt Morphology Comment Not Reportable 10/22/21 09:58 RBC Morphology Normal 10/22/21 09:58 Dimorphic RBCs Not Reportable 10/22/21 09:58 Polychromasia Not Reportable 10/22/21 09:58 Hypochromasia Not Reportable 10/22/21 09:58 Poikilocytosis Not Reportable 10/22/21 09:58 Anisocytosis Not Reportable 10/22/21 09:58 Microcytosis Not Reportable 10/22/21 09:58 Macrocytosis Not Reportable 10/22/21 09:58 Spherocytes Not Reportable 10/22/21 09:58 Pappenheimer Bodies Not Reportable 10/22/21 09:58 Sickle Cells Not Reportable 10/22/21 09:58 Target Cells Not Reportable 10/22/21 09:58 Tear Drop Cells Not Reportable 10/22/21 09:58 Ovalocytes Not Reportable 10/22/21 09:58 Helmet Cells Not Reportable 10/22/21 09:58 Mills-Morenci Bodies Not Reportable 10/22/21 09:58 Pember[place] Rings Not Reportable 10/22/21 09:58 Gale Cells Not Reportable 10/22/21 09:58 Bite Cells Not Reportable 10/22/21 09:58 Crenated Cell Not Reportable 10/22/21 09:58 Elliptocytes Not Reportable 10/22/21 09:58 Acanthocytes (Spur) Not Reportable 10/22/21 09:58 Rouleaux Not Reportable 10/22/21 09:58 Hemoglobin C Crystals Not Reportable 10/22/21 09:58 Schistocytes Not Reportable 10/22/21 09:58 Malaria parasites Not Reportable 10/22/21 09:58 Vidal Bodies Not Reportable 10/22/21 09:58 Hem Pathologist Commnt No 10/22/21 09:58 Sodium 143 mmol/L (137-145) 10/20/21 23:30 Potassium 3.6 mmol/L (3.6-5.0) 10/20/21 23:30 Chloride 103.5 mmol/L (98-107) 10/20/21 23:30 Carbon Dioxide 28 mmol/L (22-30) 10/20/21 23:30 Anion Gap 15 mmol/L 10/20/21 23:30 BUN 18 mg/dL (9-20) 10/20/21 23:30 Creatinine 1.1 mg/dL (0.8-1.3) 10/20/21 23:30 Estimated GFR > 60 ml/min 10/20/21 23:30 BUN/Creatinine Ratio 16 % 10/20/21 23:30 Glucose 124 mg/dL (75-100) H 10/20/21 23:30 POC Glucose 73 mg/dL (70-105) 10/16/21 06:38 Hemoglobin A1c 5.6 % (4-6) 10/19/21 05:26 Calcium 8.9 mg/dL (8.4-10.2) 10/20/21 23:30 Triglycerides 203 mg/dL (2-149) H 10/19/21 05:26 Cholesterol 115 mg/dL (50-199) 10/19/21 05:26 LDL Cholesterol Direct 47 mg/dL (50-130) L 10/19/21 05:26 HDL Cholesterol 28 mg/dL (40-59) L 10/19/21 05:26 Cholesterol/HDL Ratio 4.10 % 10/19/21 05:26 TSH 6.160 mlU/mL (0.270-4.200) H 10/19/21 05:26 Valproic Acid 43.8 ug/mL (50-100) L 10/19/21 05:26 Hepatitis A IgM Ab Non-reactive (NonReactive) 10/19/21 05:26 Hep Bs Antigen Non-reactive (Negative) 10/19/21 05:26 Hep B Core IgM Ab Non-reactive (NonReactive) 10/19/21 05:26 Hepatitis C Antibody Non-reactive (NonReactive) 10/19/21 05:26 Campbell/IV: Voiding Method Toilet Nutrition/Malnutrition Assess - Dietary Evaluation Nutrition/Malnutrition Findings: Nutrition Notes Start: 10/21/21 10:42 Freq: Status: Discharge Protocol: Document 10/24/21 11:46 RYAN (Rec: 10/24/21 11:48 RYAN [id number]) Nutrition Notes Initial or Follow up Reassessment Other Pertinent Diagnosis Dementia with behavioral disturbance Current Diet Cardiac + Ensure Enlive once daily Labs/Tests Reviewed Pertinent Medications Reviewed Height 5 ft 10 in Weight 70.3 kg [place] Body Weight (kg) 75.45 BMI 22.2 Weight Status Appropriate Subjective/Other Information Pt has consumed 47% of meals since last assessment. He drinks 100% of ONS. Percent of energy/protein needs met: 75% energy 86% pro (includes ONS) Burn Absent Trauma Absent Current % PO Poor (25-49%) #1 Nutrition Diagnosis Inadequate protein-energy intake As Evidenced by Signs and Symptoms po intake of meals plus ONS meeting at least 75% energy and pro needs Diagnosis Progress(for reassessment Resolved documentation) Nutrition Intervention Revisit per MD consult or patient Sign Off request:
--- NOTE | 2021-10-21 10:24 | Progress Note ---
Subjective Date of service: 10/21/21 Principal diagnosis: Dementia with Behaviral Disturbance Subjective Comment: The patient was seen today. He is lying in bed asleep. He easily arouses. He is confused. He says he's doing okay. He is mumbling and difficult to understand. 10/20: The patient was seen today. The patient is alert and oriented x1. He reports doing well " trying to make it." he continues to present with some confusion. No aggressive behavior reported. No changes made today. 10/19:The patient was seen resting quietly in bed. He is calm and cooperative. He is requesting for breakfast. Per nurse, " Pt alert but confused. Slept approximately for 5 hours during the night." 10/18: The patient was seen resting quietly in bed. Per nurse, the patient had an uneventful night. 10/17: The patient was seen resting quietly in bed. per nurse, " He presents as confused and forgetful. His appetite is improving and he was medication compliant. He had to be assisted with putting the cup to his mouth due to his confusion. He had no agitation throughout the evening. Overnight the patient slept until around 3 am. A female peer was yelling out and he went to her door and stood in the doorway. He was rubbing his left leg and stated it hurt. He could not be convinced to leave the other patients door. Patient presented as experiencing visual hallucinations. He was following unseen objects with his eyes. Patient could not be redirected without becoming angry. Geodon 20 mg IM was given for increasing agitation. He was assisted to bed where he stayed and rested. He did not sleep much but did not come back out of his room. Patient slept around 5 hours." Start Risperidone 1mg po BID REVIEW OF SYSTEMS Unable to obtain MENTAL STATUS EXAMINATION Unable to obtain Diagnoses: Dementia with behavioral disturbances Treatment Plan: Patient admitted for inpatient psychiatric evaluation, medication adjustment and close monitoring The patient's behavior, mood, sleep and appetite will be closely monitored. Patient enrolled in individual and group therapeutic sessions and encouraged to attend. Patient provided with a safe and structured environment. Patient's physical health needs will be addressed by the Hospitalist. Hospitalist Consulted Labs including CBC, CMP, Lipid profile and Hemoglobin A1C levels ordered for baseline reference Social Assessment will be completed and the Director Funds Development will work with patient and family to ensure a suitable and safe disposition Medication adjustment will be made as clinically indicated Continue home meds Usual Wellness Church/Preservation: - Start Trazodone 50 mg po QHS & 50 mg po QHS PRN between 10 PM & 2 AM for insomnia - Start Melatonin 5 mg po QHS to promote circadian rhythm The patient agreed on the treatment plan, understood the risk, benefit, alternative treatment, potential consequence of no treatment, and gave informed consent. Estimated days: 7 Medications and Allergies Allergies Allergy/AdvReac Type Severity Reaction Status Date / Time No Known Allergies Allergy Unverified 10/14/21 05:50 Home Medications Medication Instructions Recorded Confirmed Last Taken Type AtorvaSTATin [Lipitor] 40 mg PO HS 10/15/21 10/15/21 Unknown History Cholecalciferol (Vitamin D3) 5,000 units PO DAILY 10/15/21 10/15/21 Unknown History [Vitamin D3] Ezetimibe [Zetia] 10 mg PO 1200 10/15/21 10/15/21 Unknown History Gabapentin 300 mg PO HS PRN 10/15/21 10/15/21 Unknown History Levothyroxine [Synthroid] 25 mg PO DAILY 10/15/21 10/15/21 Unknown History Memantine 5 mg PO BID 10/15/21 10/15/21 Unknown History OLANzapine [ZyPREXA] 2.5 mg PO HS 10/15/21 10/15/21 Unknown History Tamsulosin [Flomax] 40 mg PO HS 10/15/21 10/15/21 Unknown History Valproic Acid [Depakene] 250 mg PO BID 10/15/21 10/15/21 Unknown History hydroCHLOROthiazide 12.5 mg PO DAILY 10/15/21 10/15/21 Unknown History [Hydrochlorothiazide] lisinopriL [Lisinopril] 10 mg PO DAILY 10/15/21 10/15/21 Unknown History Active Meds: Active Medications Aspirin (Aspirin 81 Mg Tab Chew) 81 mg PO QDAY COUNT INCLUDES THE [facility] Last Admin: 10/20/21 11:58 Dose: 81 mg Atorvastatin Calcium (Atorvastatin 40 Mg Tab) 40 mg PO HS COUNT INCLUDES THE [facility] Last Admin: 10/20/21 21:38 Dose: 40 mg Cholecalciferol (Cholecalciferol (Vit D3) 5,000 Unit Tab) 5,000 unit PO DAILY COUNT INCLUDES THE [facility] Last Admin: 10/20/21 09:45 Dose: 5,000 unit Ezetimibe (Ezetimibe 10 Mg Tab) 10 mg PO 1200 COUNT [facility]CLUDES THE [facility] Last Admin: 10/20/21 11:44 Dose: 10 mg Gabapentin (Gabapentin 300 Mg Cap) 300 mg PO HS PRN PRN Reason: Pain , Severe (7-10) Last Admin: 10/21/21 00:39 Dose: 300 mg Hydrochlorothiazide (Hydrochlorothiazide 12.5 Mg Cap) 12.5 mg PO DAILY COUNT [facility]CLUDES THE [facility] Last Admin: 10/20/21 09:44 Dose: 12.5 mg Levothyroxine Sodium (Levothyroxine 25 Mcg Tab) 25 mcg PO DAILY COUNT INCLUDES THE [facility] Last Admin: 10/20/21 09:45 Dose: 25 mcg Lisinopril (Lisinopril 5 Mg Tab) 5 mg PO QDAY COUNT INCLUDES THE [facility] Memantine (Memantine 5 Mg Tab) 5 mg PO BID COUNT INCLUDES THE [facility] Last Admin: 10/20/21 21:39 Dose: 5 mg Risperidone (Risperidone 0.25 Mg Tab) 0.5 mg PO QHS COUNT INCLUDES THE [facility] Last Admin: 10/20/21 21:39 Dose: 0.5 mg Risperidone (Risperidone 0.25 Mg Tab) 0.5 mg PO BID@1000,1700 COUNT INCLUDES THE [facility] Tamsulosin HCl (Tamsulosin 0.4 Mg Cap) 0.4 mg PO HS COUNT INCLUDES THE [facility] Last Admin: 10/20/21 21:38 Dose: 0.4 mg Trazodone HCl (Trazodone 50 Mg Tab) 50 mg PO QHS PRN PRN Reason: Insomnia Last Admin: 10/21/21 00:39 Dose: 50 mg Valproic Acid (Valproic Acid 250 Mg Cap) 250 mg PO BID COUNT INCLUDES THE [facility] Last Admin: 10/20/21 21:38 Dose: 250 mg Ziprasidone (Ziprasidone Mesylate 20 Mg Vial) 20 mg IM Q6H PRN PRN Reason: Agitation Results - Results Labs/Vitals: Laboratory Last Values WBC 11.4 K/mm3 (4.5-11.0) H 10/20/21 23:30 RBC 4.46 M/mm3 (3.65-5.03) 10/20/21 23:30 Hgb 14.1 gm/dl (11.8-15.2) 10/20/21 23:30 Hct 42.4 % (35.5-45.6) 10/20/21 23:30 MCV 95 fl (84-94) H 10/20/21 23:30 MCH 32 pg (28-32) 10/20/21 23:30 MCHC 33 % (32-34) 10/20/21 23:30 RDW 14.7 % (13.2-15.2) 10/20/21 23:30 Plt Count 117 K/mm3 (140-440) L 10/20/21 23:30 Lymph % (Auto) Physician'S Aide 10/20/21 23:30 Lymph # (Auto) Physician'S Aide 10/20/21 23:30 Add Manual Diff Complete 10/20/21 23:30 Total Counted 100 10/20/21 23:30 Seg Neutrophils % Physician'S Aide 10/20/21 23:30 Seg Neuts % (Manual) 27.0 % (40.0-70.0) L 10/20/21 23:30 Band Neutrophils % 0 % 10/20/21 23:30 Lymphocytes % (Manual) 69.0 % (13.4-35.0) H 10/20/21 23:30 Reactive Lymphs % (Man) 0 % 10/20/21 23:30 Monocytes % (Manual) 4.0 % (0.0-7.3) 10/20/21 23:30 Eosinophils % (Manual) 0 % (0.0-4.3) 10/20/21 23:30 Basophils % (Manual) 0 % (0.0-1.8) 10/20/21 23:30 Metamyelocytes % 0 % 10/20/21 23:30 Myelocytes % 0 % 10/20/21 23:30 Promyelocytes % 0 % 10/20/21 23:30 Blast Cells % 0 % 10/20/21 23:30 Nucleated RBC % Not Reportable 10/20/21 23:30 Seg Neutrophils # Man 3.1 K/mm3 (1.8-7.7) 10/20/21 23:30 Band Neutrophils # 0.0 K/mm3 10/20/21 23:30 Lymphocytes # (Manual) 7.9 K/mm3 (1.2-5.4) H 10/20/21 23:30 Abs React Lymphs (Man) 0.0 K/mm3 10/20/21 23:30 Monocytes # (Manual) 0.5 K/mm3 (0.0-0.8) 10/20/21 23:30 Eosinophils # (Manual) 0.0 K/mm3 (0.0-0.4) 10/20/21 23:30 Basophils # (Manual) 0.0 K/mm3 (0.0-0.1) 10/20/21 23:30 Metamyelocytes # 0.0 K/mm3 10/20/21 23:30 Myelocytes # 0.0 K/mm3 10/20/21 23:30 Promyelocytes # 0.0 K/mm3 10/20/21 23:30 Blast Cells # 0.0 K/mm3 10/20/21 23:30 WBC Morphology Not Reportable 10/20/21 23:30 Hypersegmented Neuts Not Reportable 10/20/21 23:30 Hyposegmented Neuts Not Reportable 10/20/21 23:30 Hypogranular Neuts Not Reportable 10/20/21 23:30 Smudge Cells Not Reportable 10/20/21 23:30 Toxic Granulation Not Reportable 10/20/21 23:30 Toxic Vacuolation Not Reportable 10/20/21 23:30 Dohle Bodies Not Reportable 10/20/21 23:30 Pelger-Huet Anomaly Not Reportable 10/20/21 23:30 Pamela Rods Not Reportable 10/20/21 23:30 Platelet Estimate Consistent w auto 10/20/21 23:30 Clumped Platelets Not Reportable 10/20/21 23:30 Plt Clumps, EDTA Not Reportable 10/20/21 23:30 Large Platelets Not Reportable 10/20/21 23:30 Giant Platelets Not Reportable 10/20/21 23:30 Platelet Satelliting Not Reportable 10/20/21 23:30 Plt Morphology Comment Not Reportable 10/20/21 23:30 RBC Morphology Normal 10/20/21 23:30 Dimorphic RBCs Not Reportable 10/20/21 23:30 Polychromasia Not Reportable 10/20/21 23:30 Hypochromasia Not Reportable 10/20/21 23:30 Poikilocytosis Not Reportable 10/20/21 23:30 Anisocytosis Not Reportable 10/20/21 23:30 Microcytosis Not Reportable 10/20/21 23:30 Macrocytosis Not Reportable 10/20/21 23:30 Spherocytes Not Reportable 10/20/21 23:30 Pappenheimer Bodies Not Reportable 10/20/21 23:30 Sickle Cells Not Reportable 10/20/21 23:30 Target Cells Not Reportable 10/20/21 23:30 Tear Drop Cells Not Reportable 10/20/21 23:30 Ovalocytes Not Reportable 10/20/21 23:30 Helmet Cells Not Reportable 10/20/21 23:30 [place] Bodies Not Reportable 10/20/21 23:30 [place] Rings Not Reportable 10/20/21 23:30 [place] Cells Not Reportable 10/20/21 23:30 Bite Cells Not Reportable 10/20/21 23:30 Crenated Cell Not Reportable 10/20/21 23:30 Elliptocytes Not Reportable 10/20/21 23:30 Acanthocytes (Spur) Not Reportable 10/20/21 23:30 Rouleaux Not Reportable 10/20/21 23:30 Hemoglobin C Crystals Not Reportable 10/20/21 23:30 Schistocytes Not Reportable 10/20/21 23:30 Malaria parasites Not Reportable 10/20/21 23:30 Vidal Bodies Not Reportable 10/20/21 23:30 Hem Pathologist Commnt No 10/20/21 23:30 Sodium 143 mmol/L (137-145) 10/20/21 23:30 Potassium 3.6 mmol/L (3.6-5.0) 10/20/21 23:30 Chloride 103.5 mmol/L (98-107) 10/20/21 23:30 Carbon Dioxide 28 mmol/L (22-30) 10/20/21 23:30 Anion Gap 15 mmol/L 10/20/21 23:30 BUN 18 mg/dL (9-20) 10/20/21 23:30 Creatinine 1.1 mg/dL (0.8-1.3) 10/20/21 23:30 Estimated GFR > 60 ml/min 10/20/21 23:30 BUN/Creatinine Ratio 16 % 10/20/21 23:30 Glucose 124 mg/dL (75-100) H 10/20/21 23:30 POC Glucose 73 mg/dL (70-105) 10/16/21 06:38 Hemoglobin A1c 5.6 % (4-6) 10/19/21 05:26 Calcium 8.9 mg/dL (8.4-10.2) 10/20/21 23:30 Triglycerides 203 mg/dL (2-149) H 10/19/21 05:26 Cholesterol 115 mg/dL (50-199) 10/19/21 05:26 LDL Cholesterol Direct 47 mg/dL (50-130) L 10/19/21 05:26 HDL Cholesterol 28 mg/dL (40-59) L 10/19/21 05:26 Cholesterol/HDL Ratio 4.10 % 10/19/21 05:26 TSH 6.160 mlU/mL (0.270-4.200) H 10/19/21 05:26 Valproic Acid 43.8 ug/mL (50-100) L 10/19/21 05:26 Hepatitis A IgM Ab Non-reactive (NonReactive) 10/19/21 05:26 Hep Bs Antigen Non-reactive (Negative) 10/19/21 05:26 Hep B Core IgM Ab Non-reactive (NonReactive) 10/19/21 05:26 Hepatitis C Antibody Non-reactive (NonReactive) 10/19/21 05:26 Last Vital Signs Temp 97.5 F L 10/20/21 19:02 Pulse 91 H 10/20/21 19:02 Resp 16 10/20/21 19:02 BP 106/62 10/20/21 19:02 Pulse Ox 98 10/20/21 19:02
[2021-10-21] MEDS: MEMANTINE 5 MG TAB PO SCH ×2 (12:09→22:03)
[2021-10-21] MEDS: risperiDONE 0.25 MG TAB PO SCH ×3 (12:09→22:03)
[2021-10-21] MEDS: LEVOTHYROXINE 25 MCG TAB PO SCH (12:09)
[2021-10-21] MEDS: hydroCHLOROthiazide 12.5 MG CAP PO SCH (12:09)
[2021-10-21] MEDS: ASPIRIN 81 MG TAB CHEW PO SCH (12:09)
[2021-10-21] MEDS: CHOLECALCIFEROL (VIT D3) 5,000 UNIT TAB PO SCH (12:09)
[2021-10-21] MEDS: EZETIMIBE 10 MG TAB PO SCH (12:10)
[2021-10-21] MEDS: VALPROIC ACID 250 MG CAP PO SCH ×2 (12:10→22:03)
[2021-10-21] MEDS: LISINOPRIL 5 MG TAB PO SCH (12:21)
[2021-10-21] MEDS: TAMSULOSIN 0.4 MG CAP PO SCH (22:03)
[2021-10-22] MEDS ORDERED: ACETAMINOPHEN 325 MG TAB PO PRN (08:29)
--- NOTE | 2021-10-22 08:29 | Progress Note ---
Subjective Date of service: 10/22/21 Principal diagnosis: Dementia with Behaviral Disturbance Subjective Comment: The patient was seen today. He is sleeping but easily arouses. He is confused. He says he didn't sleep well. The patient says his shoulder hurts. 10/21 The patient was seen today. He is lying in bed asleep. He easily arouses. He is confused. He says he's doing okay. He is mumbling and difficult to understand. 10/20: The patient was seen today. The patient is alert and oriented x1. He reports doing well " trying to make it." he continues to present with some confusion. No aggressive behavior reported. No changes made today. 10/19:The patient was seen resting quietly in bed. He is calm and cooperative. He is requesting for breakfast. Per nurse, " Pt alert but confused. Slept approximately for 5 hours during the night." 10/18: The patient was seen resting quietly in bed. Per nurse, the patient had an uneventful night. 10/17: The patient was seen resting quietly in bed. per nurse, " He presents as confused and forgetful. His appetite is improving and he was medication compliant. He had to be assisted with putting the cup to his mouth due to his confusion. He had no agitation throughout the evening. Overnight the patient slept until around 3 am. A female peer was yelling out and he went to her door and stood in the doorway. He was rubbing his left leg and stated it hurt. He could not be convinced to leave the other patients door. Patient presented as experiencing visual hallucinations. He was following unseen objects with his eyes. Patient could not be redirected without becoming angry. Geodon 20 mg IM was given for increasing agitation. He was assisted to bed where he stayed and rested. He did not sleep much but did not come back out of his room. Patient slept around 5 hours." Start Risperidone 1mg po BID REVIEW OF SYSTEMS Unable to obtain MENTAL STATUS EXAMINATION Unable to obtain Diagnoses: Dementia with behavioral disturbances Treatment Plan: Patient admitted for inpatient psychiatric evaluation, medication adjustment and close monitoring The patient's behavior, mood, sleep and appetite will be closely monitored. Patient enrolled in individual and group therapeutic sessions and encouraged to attend. Patient provided with a safe and structured environment. Patient's physical health needs will be addressed by the Hospitalist. Hospitalist Consulted Labs including CBC, CMP, Lipid profile and Hemoglobin A1C levels ordered for baseline reference Social Assessment will be completed and the Public Relations Professional will work with patient and family to ensure a suitable and safe disposition Medication adjustment will be made as clinically indicated Start Tylenol 325mg q6h prn pain Start Melatonin 5mg po qhs prn insomnia Usual Wellness Scientologist/Preservation The patient agreed on the treatment plan, understood the risk, benefit, alternative treatment, potential consequence of no treatment, and gave informed consent. Estimated days: 7 Medications and Allergies Allergies Allergy/AdvReac Type Severity Reaction Status Date / Time No Known Allergies Allergy Unverified 10/14/21 05:50 Home Medications Medication Instructions Recorded Confirmed Last Taken Type AtorvaSTATin [Lipitor] 40 mg PO HS 10/15/21 10/15/21 Unknown History Cholecalciferol (Vitamin D3) 5,000 units PO DAILY 10/15/21 10/15/21 Unknown History [Vitamin D3] Ezetimibe [Zetia] 10 mg PO 1200 10/15/21 10/15/21 Unknown History Gabapentin 300 mg PO HS PRN 10/15/21 10/15/21 Unknown History Levothyroxine [Synthroid] 25 mg PO DAILY 10/15/21 10/15/21 Unknown History Memantine 5 mg PO BID 10/15/21 10/15/21 Unknown History OLANzapine [ZyPREXA] 2.5 mg PO HS 10/15/21 10/15/21 Unknown History Tamsulosin [Flomax] 40 mg PO HS 10/15/21 10/15/21 Unknown History Valproic Acid [Depakene] 250 mg PO BID 10/15/21 10/15/21 Unknown History hydroCHLOROthiazide 12.5 mg PO DAILY 10/15/21 10/15/21 Unknown History [Hydrochlorothiazide] lisinopriL [Lisinopril] 10 mg PO DAILY 10/15/21 10/15/21 Unknown History Active Meds: Active Medications Aspirin (Aspirin 81 Mg Tab Chew) 81 mg PO QDAY [facility] Last Admin: 10/21/21 12:09 Dose: 81 mg Atorvastatin Calcium (Atorvastatin 40 Mg Tab) 40 mg PO [facility] Last Admin: 10/21/21 22:03 Dose: 40 mg Cholecalciferol (Cholecalciferol (Vit D3) 5,000 Unit Tab) 5,000 unit PO DAILY [facility] Last Admin: 10/21/21 12:09 Dose: 5,000 unit Ezetimibe (Ezetimibe 10 Mg Tab) 10 mg PO 1200 [facility] Last Admin: 10/21/21 12:10 Dose: 10 mg Gabapentin (Gabapentin 300 Mg Cap) 300 mg PO HS PRN PRN Reason: Pain , Severe (7-10) Last Admin: 10/21/21 22:04 Dose: 300 mg Hydrochlorothiazide (Hydrochlorothiazide 12.5 Mg Cap) 12.5 mg PO DAILY [facility] Last Admin: 10/21/21 12:09 Dose: 12.5 mg Levothyroxine Sodium (Levothyroxine 25 Mcg Tab) 25 mcg PO DAILY [facility] Last Admin: 10/21/21 12:09 Dose: 25 mcg Lisinopril (Lisinopril 5 Mg Tab) 5 mg PO QDAY [facility] Last Admin: 10/21/21 12:21 Dose: 5 mg Memantine (Memantine 5 Mg Tab) 5 mg PO BID [facility] Last Admin: 10/21/21 22:03 Dose: 5 mg Risperidone (Risperidone 0.25 Mg Tab) 0.5 mg PO QHS [facility] Last Admin: 10/21/21 22:03 Dose: 0.5 mg Risperidone (Risperidone 0.25 Mg Tab) 0.5 mg PO BID@1000,1700 [facility] Last Admin: 10/21/21 17:59 Dose: 0.5 mg Tamsulosin HCl (Tamsulosin 0.4 Mg Cap) 0.4 mg PO HS [facility] Last Admin: 10/21/21 22:03 Dose: 0.4 mg Trazodone HCl (Trazodone 50 Mg Tab) 50 mg PO QHS PRN PRN Reason: Insomnia Last Admin: 10/21/21 22:04 Dose: 50 mg Valproic Acid (Valproic Acid 250 Mg Cap) 250 mg PO BID [facility] Last Admin: 10/21/21 22:03 Dose: 250 mg Ziprasidone (Ziprasidone Mesylate 20 Mg Vial) 20 mg IM Q6H PRN PRN Reason: Agitation Results - Results Labs/Vitals: Laboratory Last Values WBC 11.4 K/mm3 (4.5-11.0) H 10/20/21 23:30 RBC 4.46 M/mm3 (3.65-5.03) 10/20/21 23:30 Hgb 14.1 gm/dl (11.8-15.2) 10/20/21 23:30 Hct 42.4 % (35.5-45.6) 10/20/21 23:30 MCV 95 fl (84-94) H 10/20/21 23:30 MCH 32 pg (28-32) 10/20/21 23:30 MCHC 33 % (32-34) 10/20/21 23:30 RDW 14.7 % (13.2-15.2) 10/20/21 23:30 Plt Count 117 K/mm3 (140-440) L 10/20/21 23:30 Lymph % (Auto) Tufting Supervisor 10/20/21 23:30 Lymph # (Auto) Tufting Supervisor 10/20/21 23:30 Add Manual Diff Complete 10/20/21: Total Counted 100 10/20/21 23:30 Seg Neutrophils % Tufting Supervisor 10/20/21 23:30 Seg Neuts % (Manual) 27.0 % (40.0-70.0) L 10/20/21 23:30 Band Neutrophils % 0 % 10/20/21 23:30 Lymphocytes % (Manual) 69.0 % (13.4-35.0) H 10/20/21 23:30 Reactive Lymphs % (Man) 0 % 10/20/21 23:30 Monocytes % (Manual) 4.0 % (0.0-7.3) 10/20/21 23:30 Eosinophils % (Manual) 0 % (0.0-4.3) 10/20/21 23:30 Basophils % (Manual) 0 % (0.0-1.8) 10/20/21 23:30 Metamyelocytes % 0 % 10/20/21 23:30 Myelocytes % 0 % 10/20/21 23:30 Promyelocytes % 0 % 10/20/21 23:30 Blast Cells % 0 % 10/20/21 23:30 Nucleated RBC % Not Reportable 10/20/21 23:30 Seg Neutrophils # Man 3.1 K/mm3 (1.8-7.7) 10/20/21 23:30 Band Neutrophils # 0.0 K/mm3 10/20/21 23:30 Lymphocytes # (Manual) 7.9 K/mm3 (1.2-5.4) H 10/20/21 23:30 Abs React Lymphs (Man) 0.0 K/mm3 10/20/21 23:30 Monocytes # (Manual) 0.5 K/mm3 (0.0-0.8) 10/20/21 23:30 Eosinophils # (Manual) 0.0 K/mm3 (0.0-0.4) 10/20/21 23:30 Basophils # (Manual) 0.0 K/mm3 (0.0-0.1) 10/20/21 23:30 Metamyelocytes # 0.0 K/mm3 10/20/21 23:30 Myelocytes # 0.0 K/mm3 10/20/21 23:30 Promyelocytes # 0.0 K/mm3 10/20/21 23:30 Blast Cells # 0.0 K/mm3 10/20/21 23:30 WBC Morphology Not Reportable 10/20/21 23:30 Hypersegmented Neuts Not Reportable 10/20/21 23:30 Hyposegmented Neuts Not Reportable 10/20/21 23:30 Hypogranular Neuts Not Reportable 10/20/21 23:30 Smudge Cells Not Reportable 10/20/21 23:30 Toxic Granulation Not Reportable 10/20/21 23:30 Toxic Vacuolation Not Reportable 10/20/21 23:30 Dohle Bodies Not Reportable 10/20/21 23:30 Pelger-Huet Anomaly Not Reportable 10/20/21 23:30 Pamela Rods Not Reportable 10/20/21 23:30 Platelet Estimate Consistent w auto 10/20/21 23:30 Clumped Platelets Not Reportable 10/20/21 23:30 Plt Clumps, EDTA Not Reportable 10/20/21 23:30 Large Platelets Not Reportable 10/20/21 23:30 Giant Platelets Not Reportable 10/20/21 23:30 Platelet Satelliting Not Reportable 10/20/21 23:30 Plt Morphology Comment Not Reportable 10/20/21 23:30 RBC Morphology Normal 10/20/21 23:30 Dimorphic RBCs Not Reportable 10/20/21 23:30 Polychromasia Not Reportable 10/20/21 23:30 Hypochromasia Not Reportable 10/20/21 23:30 Poikilocytosis Not Reportable 10/20/21 23:30 Anisocytosis Not Reportable 10/20/21 23:30 Microcytosis Not Reportable 10/20/21 23:30 Macrocytosis Not Reportable 10/20/21 23:30 Spherocytes Not Reportable 10/20/21 23:30 Pappenheimer Bodies Not Reportable 10/20/21 23:30 Sickle Cells Not Reportable 10/20/21 23:30 Target Cells Not Reportable 10/20/21 23:30 Tear Drop Cells Not Reportable 10/20/21 23:30 Ovalocytes Not Reportable 10/20/21 23:30 Helmet Cells Not Reportable 10/20/21 23:30 [place] Bodies Not Reportable 10/20/21 23:30 [place] Rings Not Reportable 10/20/21 23:30 [place] Cells Not Reportable 10/20/21 23:30 Bite Cells Not Reportable 10/20/21 23:30 Crenated Cell Not Reportable 10/20/21 23:30 Elliptocytes Not Reportable 10/20/21 23:30 Acanthocytes (Spur) Not Reportable 10/20/21 23:30 Rouleaux Not Reportable 10/20/21 23:30 Hemoglobin C Crystals Not Reportable 10/20/21 23:30 Schistocytes Not Reportable 10/20/21 23:30 Malaria parasites Not Reportable 10/20/21 23:30 Vidal Bodies Not Reportable 10/20/21 23:30 Hem Pathologist Commnt No 10/20/21 23:30 Sodium 143 mmol/L (137-145) 10/20/21 23:30 Potassium 3.6 mmol/L (3.6-5.0) 10/20/21 23:30 Chloride 103.5 mmol/L (98-107) 10/20/21 23:30 Carbon Dioxide 28 mmol/L (22-30) 10/20/21 23:30 Anion Gap 15 mmol/L 10/20/21 23:30 BUN 18 mg/dL (9-20) 10/20/21 23:30 Creatinine 1.1 mg/dL (0.8-1.3) 10/20/21 23:30 Estimated GFR > 60 ml/min 10/20/21 23:30 BUN/Creatinine Ratio 16 % 10/20/21 23:30 Glucose 124 mg/dL (75-100) H 10/20/21 23:30 POC Glucose 73 mg/dL (70-105) 10/16/21 06:38 Hemoglobin A1c 5.6 % (4-6) 10/19/21 05:26 Calcium 8.9 mg/dL (8.4-10.2) 10/20/21 23:30 Triglycerides 203 mg/dL (2-149) H 10/19/21 05:26 Cholesterol 115 mg/dL (50-199) 10/19/21 05:26 LDL Cholesterol Direct 47 mg/dL (50-130) L 10/19/21 05:26 HDL Cholesterol 28 mg/dL (40-59) L 10/19/21 05:26 Cholesterol/HDL Ratio 4.10 % 10/19/21 05:26 TSH 6.160 mlU/mL (0.270-4.200) H 10/19/21 05:26 Valproic Acid 43.8 ug/mL (50-100) L 10/19/21 05:26 Hepatitis A IgM Ab Non-reactive (NonReactive) 10/19/21 05:26 Hep Bs Antigen Non-reactive (Negative) 10/19/21 05:26 Hep B Core IgM Ab Non-reactive (NonReactive) 10/19/21 05:26 Hepatitis C Antibody Non-reactive (NonReactive) 10/19/21 05:26 Last Vital Signs Temp 98.3 F 10/21/21 19:00 Pulse 72 10/21/21 19:00 Resp 16 10/21/21 19:00 BP 118/65 10/21/21 19:00 Pulse Ox 97 10/21/21 19:00
[2021-10-22] MEDS: MEMANTINE 5 MG TAB PO SCH ×2 (09:07→21:38)
[2021-10-22] MEDS: risperiDONE 0.25 MG TAB PO SCH ×3 (09:07→21:38)
[2021-10-22] MEDS: ASPIRIN 81 MG TAB CHEW PO SCH (09:07)
[2021-10-22] MEDS: VALPROIC ACID 250 MG CAP PO SCH ×2 (09:08→21:38)
[2021-10-22] MEDS: LEVOTHYROXINE 25 MCG TAB PO SCH (09:09)
[2021-10-22] MEDS: hydroCHLOROthiazide 12.5 MG CAP PO SCH (09:09)
[2021-10-22] MEDS: CHOLECALCIFEROL (VIT D3) 5,000 UNIT TAB PO SCH (09:10)
[2021-10-22] MEDS: LISINOPRIL 5 MG TAB PO SCH (09:12)
--- NOTE | 2021-10-22 09:55 | Progress Note ---
Assessment and Plan Assessment and plan: Leukocytosis -Improving -Afebrile, vitals WNL -Continue to trend cbc and f.u pending labs Hypertension -Monitor blood pressure per protocol -Decrease Lisinopril dose to 5mg daily, continue home dose HCTZ -on heart healthy diet BPH (benign prostatic hyperplasia) -On Flomax -Monitor for s/s of urinary retention Hypothyroidism -On Synthroid Cerebral atherosclerosis -antiplatelet therapy -On statin and Zetia Bipolar disorder -mgmt per primary Vascular dementia with behavior disturbance -continue anti-psych medicine -mgmt per primary Total Time Spent with Patient (Minutes): 27 History Interval history: 80-year-old male with history of HTN, hypothyroidism vascular dementia, cerebral atherosclerosis, and bipolar disorder who was admitted after being found to be danger to self, others, and failure of outpatient treatment. 10/22: Pt seen resting in bed (room 510), and is easily aroused. Continues to be confused and oriented to self. No overnight events reported. 10/21: Pt seen in bed (room 510) this morning, oriented to self. He denies self harm or harming others. No overnight events reported. Hospitalist Physical - Physical exam Narrative exam: General appearance: Present: no acute distress, other (Oriented to self) - EENT Eyes: Present: PERRL, EOM intact ENT: hearing intact, clear oral mucosa, other (missing teeth) - Neck Neck: Present: supple, normal ROM - Respiratory Respiratory effort: normal Respiratory: bilateral: CTA - Cardiovascular Rhythm: regular Heart Sounds: Present: S1 & S2, click. Absent: systolic murmur, diastolic murmur, rub - Extremities Extremities: pulses intact, pulses symmetrical, No edema Peripheral Pulses: within normal limits - Abdominal General gastrointestinal: soft, non-tender, non-distended, normal bowel sounds - Integumentary Integumentary: Present: clear, warm, dry - Psychiatric Psychiatric: cooperative - Neurologic Neurologic: CNII-XII intact - Constitutional Vitals: Temp Pulse Resp BP Pulse Ox 98.3 F 75 16 112/66 97 10/21/21 19:00 10/22/21 09:12 10/21/21 19:00 10/22/21 09:12 10/21/21 19:00 General appearance: Present: no acute distress, other (Oriented to self) Results - Labs CBC & Chem 7: 10/20/21 23:30 10/20/21 23:30 Labs: Laboratory Last Values WBC 11.4 K/mm3 (4.5-11.0) H 10/20/21 23:30 RBC 4.46 M/mm3 (3.65-5.03) 10/20/21 23:30 Hgb 14.1 gm/dl (11.8-15.2) 10/20/21 23:30 Hct 42.4 % (35.5-45.6) 10/20/21 23:30 MCV 95 fl (84-94) H 10/20/21 23:30 MCH 32 pg (28-32) 10/20/21 23:30 MCHC 33 % (32-34) 10/20/21 23:30 RDW 14.7 % (13.2-15.2) 10/20/21 23:30 Plt Count 117 K/mm3 (140-440) L 10/20/21 23:30 Lymph % (Auto) [place] 10/20/21 23:30 Lymph # (Auto) [place] Shader 10/20/21 23:30 Add Manual Diff Complete 10/20/21 23:30 Total Counted 100 10/20/21 23:30 Seg Neutrophils % [place] Shader 10/20/21 23:30 Seg Neuts % (Manual) 27.0 % (40.0-70.0) L 10/20/21 23:30 Band Neutrophils % 0 % 10/20/21 23:30 Lymphocytes % (Manual) 69.0 % (13.4-35.0) H 10/20/21 23:30 Reactive Lymphs % (Man) 0 % 10/20/21 23:30 Monocytes % (Manual) 4.0 % (0.0-7.3) 10/20/21 23:30 Eosinophils % (Manual) 0 % (0.0-4.3) 10/20/21 23:30 Basophils % (Manual) 0 % (0.0-1.8) 10/20/21 23:30 Metamyelocytes % 0 % 10/20/21 23:30 Myelocytes % 0 % 10/20/21 23:30 Promyelocytes % 0 % 10/20/21 23:30 Blast Cells % 0 % 10/20/21 23:30 Nucleated RBC % Not Reportable 10/20/21 23:30 Seg Neutrophils # Man 3.1 K/mm3 (1.8-7.7) 10/20/21 23:30 Band Neutrophils # 0.0 K/mm3 10/20/21 23:30 Lymphocytes # (Manual) 7.9 K/mm3 (1.2-5.4) H 10/20/21 23:30 Abs React Lymphs (Man) 0.0 K/mm3 10/20/21 23:30 Monocytes # (Manual) 0.5 K/mm3 (0.0-0.8) 10/20/21 23:30 Eosinophils # (Manual) 0.0 K/mm3 (0.0-0.4) 10/20/21 23:30 Basophils # (Manual) 0.0 K/mm3 (0.0-0.1) 10/20/21 23:30 Metamyelocytes # 0.0 K/mm3 10/20/21 23:30 Myelocytes # 0.0 K/mm3 10/20/21 23:30 Promyelocytes # 0.0 K/mm3 10/20/21 23:30 Blast Cells # 0.0 K/mm3 10/20/21 23:30 WBC Morphology Not Reportable 10/20/21 23:30 Hypersegmented Neuts Not Reportable 10/20/21 23:30 Hyposegmented Neuts Not Reportable 10/20/21 23:30 Hypogranular Neuts Not Reportable 10/20/21 23:30 Smudge Cells Not Reportable 10/20/21 23:30 Toxic Granulation Not Reportable 10/20/21 23:30 Toxic Vacuolation Not Reportable 10/20/21 23:30 Dohle Bodies Not Reportable 10/20/21 23:30 Pelger-Huet Anomaly Not Reportable 10/20/21 23:30 Pamela Rods Not Reportable 10/20/21 23:30 Platelet Estimate Consistent w auto 10/20/21 23:30 Clumped Platelets Not Reportable 10/20/21 23:30 Plt Clumps, EDTA Not Reportable 10/20/21 23:30 Large Platelets Not Reportable 10/20/21 23:30 Giant Platelets Not Reportable 10/20/21 23:30 Platelet Satelliting Not Reportable 10/20/21 23:30 Plt Morphology Comment Not Reportable 10/20/21 23:30 RBC Morphology Normal 10/20/21 23:30 Dimorphic RBCs Not Reportable 10/20/21 23:30 Polychromasia Not Reportable 10/20/21 23:30 Hypochromasia Not Reportable 10/20/21 23:30 Poikilocytosis Not Reportable 10/20/21 23:30 Anisocytosis Not Reportable 10/20/21 23:30 Microcytosis Not Reportable 10/20/21 23:30 Macrocytosis Not Reportable 10/20/21 23:30 Spherocytes Not Reportable 10/20/21 23:30 Pappenheimer Bodies Not Reportable 10/20/21 23:30 Sickle Cells Not Reportable 10/20/21 23:30 Target Cells Not Reportable 10/20/21 23:30 Tear Drop Cells Not Reportable 10/20/21 23:30 Ovalocytes Not Reportable 10/20/21 23:30 Helmet Cells Not Reportable 10/20/21 23:30 [place] Bodies Not Reportable 10/20/21 23:30 [place] Rings Not Reportable 10/20/21 23:30 Gale Cells Not Reportable 10/20/21 23:30 Bite Cells Not Reportable 10/20/21 23:30 Crenated Cell Not Reportable 10/20/21 23:30 Elliptocytes Not Reportable 10/20/21 23:30 Acanthocytes (Spur) Not Reportable 10/20/21 23:30 Rouleaux Not Reportable 10/20/21 23:30 Hemoglobin C Crystals Not Reportable 10/20/21 23:30 Schistocytes Not Reportable 10/20/21 23:30 Malaria parasites Not Reportable 10/20/21 23:30 Vidal Bodies Not Reportable 10/20/21 23:30 Hem Pathologist Commnt No 10/20/21 23:30 Sodium 143 mmol/L (137-145) 10/20/21 23:30 Potassium 3.6 mmol/L (3.6-5.0) 10/20/21 23:30 Chloride 103.5 mmol/L (98-107) 10/20/21 23:30 Carbon Dioxide 28 mmol/L (22-30) 10/20/21 23:30 Anion Gap 15 mmol/L 10/20/21 23:30 BUN 18 mg/dL (9-20) 10/20/21 23:30 Creatinine 1.1 mg/dL (0.8-1.3) 10/20/21 23:30 Estimated GFR > 60 ml/min 10/20/21 23:30 BUN/Creatinine Ratio 16 % 10/20/21 23:30 Glucose 124 mg/dL (75-100) H 10/20/21 23:30 POC Glucose 73 mg/dL (70-105) 10/16/21 06:38 Hemoglobin A1c 5.6 % (4-6) 10/19/21 05:26 Calcium 8.9 mg/dL (8.4-10.2) 10/20/21 23:30 Triglycerides 203 mg/dL (2-149) H 10/19/21 05:26 Cholesterol 115 mg/dL (50-199) 10/19/21 05:26 LDL Cholesterol Direct 47 mg/dL (50-130) L 10/19/21 05:26 HDL Cholesterol 28 mg/dL (40-59) L 10/19/21 05:26 Cholesterol/HDL Ratio 4.10 % 10/19/21 05:26 TSH 6.160 mlU/mL (0.270-4.200) H 10/19/21 05:26 Valproic Acid 43.8 ug/mL (50-100) L 10/19/21 05:26 Hepatitis A IgM Ab Non-reactive (NonReactive) 10/19/21 05:26 Hep Bs Antigen Non-reactive (Negative) 10/19/21 05:26 Hep B Core IgM Ab Non-reactive (NonReactive) 10/19/21 05:26 Hepatitis C Antibody Non-reactive (NonReactive) 10/19/21 05:26 Campbell/IV: Voiding Method Toilet Active Medications - Current Medications Current Medications: Generic Name Dose Route Start Last Admin Trade Name Freq PRN Reason Stop Dose Admin Acetaminophen 325 mg 10/22/21 08:29 Acetaminophen 325 Mg Tab PO Q6H PRN Pain, Mild (1-3) Aspirin 81 mg 10/20/21 12:00 10/22/21 09:07 Aspirin 81 Mg Tab Chew PO 81 mg QDAY ARTEM Administration Atorvastatin Calcium 40 mg 10/15/21 22:00 10/21/21 22:03 Atorvastatin 40 Mg Tab PO 40 mg HS ARTEM Administration Cholecalciferol 5,000 unit 10/15/21 11:00 10/22/21 09:10 Cholecalciferol (Vit D3) 5,000 Unit Tab PO 5,000 unit DAILY ARTEM Administration Ezetimibe 10 mg 10/15/21 12:00 10/21/21 12:10 Ezetimibe 10 Mg Tab PO 10 mg 1200 ARTEM Administration Gabapentin 300 mg 10/15/21 08:34 10/21/21 22:04 Gabapentin 300 Mg Cap PO 300 mg HS PRN Administration Pain , Severe (7-10) Hydrochlorothiazide 12.5 mg 10/15/21 11:00 10/22/21 09:09 Hydrochlorothiazide 12.5 Mg Cap PO 12.5 mg DAILY ARTEM Administration Levothyroxine Sodium 25 mcg 10/15/21 11:00 10/22/21 09:09 Levothyroxine 25 Mcg Tab PO 25 mcg DAILY ARTEM Administration Lisinopril 5 mg 10/21/21 10:00 10/22/21 09:12 Lisinopril 5 Mg Tab PO Not Given QDAY ARTEM Melatonin 5 mg 10/22/21 22:00 Melatonin 5 Mg Tab PO QHS PRN Sleep Memantine 5 mg 10/15/21 11:00 10/22/21 09:07 Memantine 5 Mg Tab PO 5 mg BID ARTEM Administration Risperidone 0.5 mg 10/20/21 22:00 10/21/21 22:03 Risperidone 0.25 Mg Tab PO 0.5 mg QHS ARTEM Administration Risperidone 0.5 mg 10/21/21 10:00 10/22/21 09:07 Risperidone 0.25 Mg Tab PO 0.5 mg BID@1000,1700 ARTEM Administration Tamsulosin HCl 0.4 mg 10/15/21 22:00 10/21/21 22:03 Tamsulosin 0.4 Mg Cap PO 0.4 mg HS ARTEM Administration Trazodone HCl 50 mg 10/15/21 08:36 10/21/21 22:04 Trazodone 50 Mg Tab PO 50 mg QHS PRN Administration Insomnia Valproic Acid 250 mg 10/15/21 11:00 10/22/21 09:08 Valproic Acid 250 Mg Cap PO 250 mg BID ARTEM Administration Ziprasidone 20 mg 10/17/21 10:00 Ziprasidone Mesylate 20 Mg Vial IM Q6H PRN Agitation Nutrition/Malnutrition Assess - Dietary Evaluation Nutrition/Malnutrition Findings: Nutrition Notes Start: 10/21/21 10:42 Freq: Status: Active Protocol: Document 10/21/21 10:42 RYAN (Rec: 10/21/21 10:48 RYAN [id number]) Nutrition Notes Need for Assessment generated from: LOS Initial or Follow up Assessment Other Pertinent Diagnosis Dementia with behavioral disturbance Current Diet Cardiac Labs/Tests Reviewed Pertinent Medications Vit D3 Height 5 ft 10 in Weight 70.3 kg [place] Body Weight (kg) 75.45 BMI 22.2 Weight Status Appropriate Subjective/Other Information Pt screened for LOS. He has consumed 57% of meals since admission. Per RN note, pt needs to be prompted to eat. Intakes have improved since admission. Percent of energy/protein needs met: 68% energy 59% pro Burn Absent Trauma Absent Current % PO Fair (50-74%) Minimum of two criteria No #1 Nutrition Diagnosis Inadequate protein-energy intake Etiology advanced age, dementia As Evidenced by Signs and Symptoms PO intakes meeting <75% estimated energy and pro needs Is patient on ventilator? No Is Patient Ambulatory and/or Out of Bed Yes REE-([facility]-ambulatory/OOB) [ 1858.025 [id number]] Calculation Used for Recommendations [facility] Additional Notes Pro needs 1-1.2g/k-84g/ day Fluid needs 1ml/kcal Nutrition Intervention Change Diet Order: Continue current diet order Add Supplement/Snack (indicate name/kcal Ensure Enlive once daily /protein ) Provides kCal: 350 Provides Protein (gm) 20 Goal #1 PO intake of meals plus ONS to meet at least 75% energy and pro needs Anticipated Discharge Needs: Continue ONS 1-2 times daily if PO intakes suboptimal Follow-Up By: 10/24/21 Additional Comments F/U: intakes (meals/ONS)
[2021-10-22 10:45] LABS: Hematocrit 42.5 % (35.5-45.6); Hemoglobin 14.3 gm/dl (11.8-15.2); Mean Corpuscular HGB Conc 34 % (32-34); Mean Corpuscular Volume 94 fl (84-94); Platelet Count 131 K/mm3 (140-440); Red Blood Count 4.54 M/mm3 (3.65-5.03); Red Cell Distribution Width 14.7 % (13.2-15.2)
[2021-10-22 11:45] LABS: Basophils % (Manual) 0 % (0.0-1.8); Total Cells Counted 100
[2021-10-22 11:46] LABS: Platelet Estimate Consistent w Auto; RBC Morphology Normal
[2021-10-22] MEDS: EZETIMIBE 10 MG TAB PO SCH (12:40)
[2021-10-22] MEDS: traZODone 50 MG TAB PO PRN (20:56)
[2021-10-22] MEDS: GABAPENTIN 300 MG CAP PO PRN (20:56)
[2021-10-22] MEDS: TAMSULOSIN 0.4 MG CAP PO SCH (21:38)
[2021-10-22] MEDS ORDERED: MELATONIN 5 MG TAB PO PRN (22:00)
--- NOTE | 2021-10-23 08:21 | Progress Note ---
Subjective Date of service: 10/23/21 Principal diagnosis: Dementia with Behaviral Disturbance Subjective Comment: The patient was seen today. He is more with it today. He greets me with "good morning." He says he's cold but feels alright. The patient says he slept well. He denies SI/HI. 10/22 The patient was seen today. He is sleeping but easily arouses. He is confused. He says he didn't sleep well. The patient says his shoulder hurts. 10/21 The patient was seen today. He is lying in bed asleep. He easily arouses. He is confused. He says he's doing okay. He is mumbling and difficult to understand. 10/20: The patient was seen today. The patient is alert and oriented x1. He reports doing well " trying to make it." he continues to present with some confusion. No aggressive behavior reported. No changes made today. 10/19:The patient was seen resting quietly in bed. He is calm and cooperative. He is requesting for breakfast. Per nurse, " Pt alert but confused. Slept approximately for 5 hours during the night." 10/18: The patient was seen resting quietly in bed. Per nurse, the patient had an uneventful night. 10/17: The patient was seen resting quietly in bed. per nurse, " He presents as confused and forgetful. His appetite is improving and he was medication compliant. He had to be assisted with putting the cup to his mouth due to his confusion. He had no agitation throughout the evening. Overnight the patient slept until around 3 am. A female peer was yelling out and he went to her door and stood in the doorway. He was rubbing his left leg and stated it hurt. He could not be convinced to leave the other patients door. Patient presented as experiencing visual hallucinations. He was following unseen objects with his eyes. Patient could not be redirected without becoming angry. Geodon 20 mg IM was given for increasing agitation. He was assisted to bed where he stayed and rested. He did not sleep much but did not come back out of his room. Patient slept around 5 hours." Start Risperidone 1mg po BID REVIEW OF SYSTEMS Unable to obtain MENTAL STATUS EXAMINATION Unable to obtain Diagnoses: Dementia with behavioral disturbances Treatment Plan: Patient admitted for inpatient psychiatric evaluation, medication adjustment and close monitoring The patient's behavior, mood, sleep and appetite will be closely monitored. Patient enrolled in individual and group therapeutic sessions and encouraged to attend. Patient provided with a safe and structured environment. Patient's physical health needs will be addressed by the Hospitalist. Hospitalist Consulted Labs including CBC, CMP, Lipid profile and Hemoglobin A1C levels ordered for baseline reference Social Assessment will be completed and the Dental Assistant will work with patient and family to ensure a suitable and safe disposition Medication adjustment will be made as clinically indicated Tylenol 325mg q6h prn pain Melatonin 5mg po qhs prn insomnia [facility] The patient agreed on the treatment plan, understood the risk, benefit, alternative treatment, potential consequence of no treatment, and gave informed consent. Estimated days: 7 Medications and Allergies Allergies Allergy/AdvReac Type Severity Reaction Status Date / Time No Known Allergies Allergy Unverified 10/14/21 05:50 Home Medications Medication Instructions Recorded Confirmed Last Taken Type AtorvaSTATin [Lipitor] 40 mg PO HS 10/15/21 10/15/21 Unknown History Cholecalciferol (Vitamin D3) 5,000 units PO DAILY 10/15/21 10/15/21 Unknown History [Vitamin D3] Ezetimibe [Zetia] 10 mg PO 1200 10/15/21 10/15/21 Unknown History Gabapentin 300 mg PO HS PRN 10/15/21 10/15/21 Unknown History Levothyroxine [Synthroid] 25 mg PO DAILY 10/15/21 10/15/21 Unknown History Memantine 5 mg PO BID 10/15/21 10/15/21 Unknown History OLANzapine [ZyPREXA] 2.5 mg PO HS 10/15/21 10/15/21 Unknown History Tamsulosin [Flomax] 40 mg PO HS 10/15/21 10/15/21 Unknown History Valproic Acid [Depakene] 250 mg PO BID 10/15/21 10/15/21 Unknown History hydroCHLOROthiazide 12.5 mg PO DAILY 10/15/21 10/15/21 Unknown History [Hydrochlorothiazide] lisinopriL [Lisinopril] 10 mg PO DAILY 10/15/21 10/15/21 Unknown History Active Meds: Active Medications Acetaminophen (Acetaminophen 325 Mg Tab) 325 mg PO Q6H PRN PRN Reason: Pain, Mild (1-3) Aspirin (Aspirin 81 Mg Tab Chew) 81 mg PO QDAY [facility] Last Admin: 10/22/21 09:07 Dose: 81 mg Atorvastatin Calcium (Atorvastatin 40 Mg Tab) 40 mg PO HS [facility] Last Admin: 10/22/21 21:38 Dose: 40 mg Cholecalciferol (Cholecalciferol (Vit D3) 5,000 Unit Tab) 5,000 unit PO DAILY [facility] Last Admin: 10/22/21 09:10 Dose: 5,000 unit Ezetimibe (Ezetimibe 10 Mg Tab) 10 mg PO 1200 [facility] Last Admin: 10/22/21 12:40 Dose: 10 mg Gabapentin (Gabapentin 300 Mg Cap) 300 mg PO HS PRN PRN Reason: Pain , Severe (7-10) Last Admin: 10/22/21 20:56 Dose: 300 mg Hydrochlorothiazide (Hydrochlorothiazide 12.5 Mg Cap) 12.5 mg PO DAILY [facility] Last Admin: 10/22/21 09:09 Dose: 12.5 mg Levothyroxine Sodium (Levothyroxine 25 Mcg Tab) 25 mcg PO DAILY [facility] Last Admin: 10/22/21 09:09 Dose: 25 mcg Lisinopril (Lisinopril 5 Mg Tab) 5 mg PO QDAY [facility] Last Admin: 10/22/21 09:12 Dose: Not Given Melatonin (Melatonin 5 Mg Tab) 5 mg PO QHS PRN PRN Reason: Sleep Memantine (Memantine 5 Mg Tab) 5 mg PO BID [facility] Last Admin: 10/22/21 21:38 Dose: 5 mg Risperidone (Risperidone 0.25 Mg Tab) 0.5 mg PO QHS [facility] Last Admin: 10/22/21 21:38 Dose: 0.5 mg Risperidone (Risperidone 0.25 Mg Tab) 0.5 mg PO BID@1000,1700 [facility] Last Admin: 10/22/21 16:26 Dose: 0.5 mg Tamsulosin HCl (Tamsulosin 0.4 Mg Cap) 0.4 mg PO HS [facility] Last Admin: 10/22/21 21:38 Dose: 0.4 mg Trazodone HCl (Trazodone 50 Mg Tab) 50 mg PO QHS PRN PRN Reason: Insomnia Last Admin: 10/22/21 20:56 Dose: 50 mg Valproic Acid (Valproic Acid 250 Mg Cap) 250 mg PO BID [facility] Last Admin: 06/18/22 21:38 Dose: 250 mg Ziprasidone (Ziprasidone Mesylate 20 Mg Vial) 20 mg IM Q6H PRN PRN Reason: Agitation Results - Results Labs/Vitals: Laboratory Last Values WBC 13.8 K/mm3 (4.5-11.0) H 10/22/21 09:58 RBC 4.54 M/mm3 (3.65-5.03) 10/22/21 09:58 Hgb 14.3 gm/dl (11.8-15.2) 10/22/21 09:58 Hct 42.5 % (35.5-45.6) 10/22/21 09:58 MCV 94 fl (84-94) 10/22/21 09:58 MCH 32 pg (28-32) 10/22/21 09:58 MCHC 34 % (32-34) 10/22/21 09:58 RDW 14.7 % (13.2-15.2) 10/22/21 09:58 Plt Count 131 K/mm3 (140-440) L 10/22/21 09:58 Lymph % (Auto) [place] Machine 10/22/21 09:58 Lymph # (Auto) [place] Machine 10/22/21 09:58 Add Manual Diff Complete 10/22/21 09:58 Total Counted 100 10/22/21 09:58 Seg Neutrophils % [place] Machine 10/22/21 09:58 Seg Neuts % (Manual) 27.0 % (40.0-70.0) L 10/22/21 09:58 Band Neutrophils % 0 % 10/22/21 09:58 Lymphocytes % (Manual) 60.0 % (13.4-35.0) H 10/22/21 09:58 Reactive Lymphs % (Man) 5.0 % 10/22/21 09:58 Monocytes % (Manual) 6.0 % (0.0-7.3) 10/22/21 09:58 Eosinophils % (Manual) 2.0 % (0.0-4.3) 10/22/21 09:58 Basophils % (Manual) 0 % (0.0-1.8) 10/22/21 09:58 Metamyelocytes % 0 % 10/22/21 09:58 Myelocytes % 0 % 10/22/21 09:58 Promyelocytes % 0 % 10/22/21 09:58 Blast Cells % 0 % 10/22/21 09:58 Nucleated RBC % Not Reportable 10/22/21 09:58 Seg Neutrophils # Man 3.7 K/mm3 (1.8-7.7) 10/22/21 09:58 Band Neutrophils # 0.0 K/mm3 10/22/21 09:58 Lymphocytes # (Manual) 8.3 K/mm3 (1.2-5.4) H 10/22/21 09:58 Abs React Lymphs (Man) 0.7 K/mm3 10/22/21 09:58 Monocytes # (Manual) 0.8 K/mm3 (0.0-0.8) 10/22/21 09:58 Eosinophils # (Manual) 0.3 K/mm3 (0.0-0.4) 10/22/21 09:58 Basophils # (Manual) 0.0 K/mm3 (0.0-0.1) 10/22/21 09:58 Metamyelocytes # 0.0 K/mm3 10/22/21 09:58 Myelocytes # 0.0 K/mm3 10/22/21 09:58 Promyelocytes # 0.0 K/mm3 10/22/21 09:58 Blast Cells # 0.0 K/mm3 10/22/21 09:58 WBC Morphology Not Reportable 10/22/21 09:58 WBC Morphology TNR 10/22/21 09:58 Hypersegmented Neuts Not Reportable 10/22/21 09:58 Hyposegmented Neuts Not Reportable 10/22/21 09:58 Hypogranular Neuts Not Reportable 10/22/21 09:58 Smudge Cells Not Reportable 10/22/21 09:58 Toxic Granulation Not Reportable 10/22/21 09:58 Toxic Vacuolation Not Reportable 10/22/21 09:58 Dohle Bodies Not Reportable 10/22/21 09:58 Pelger-Huet Anomaly Not Reportable 10/22/21 09:58 Pamela Rods Not Reportable 10/22/21 09:58 Platelet Estimate Consistent w auto 10/22/21 09:58 Clumped Platelets Not Reportable 10/22/21 09:58 Plt Clumps, EDTA Not Reportable 10/22/21 09:58 Large Platelets Not Reportable 10/22/21 09:58 Giant Platelets Not Reportable 10/22/21 09:58 Platelet Satelliting Not Reportable 10/22/21 09:58 Plt Morphology Comment Not Reportable 10/22/21 09:58 RBC Morphology Normal 10/22/21 09:58 Dimorphic RBCs Not Reportable 10/22/21 09:58 Polychromasia Not Reportable 10/22/21 09:58 Hypochromasia Not Reportable 10/22/21 09:58 Poikilocytosis Not Reportable 10/22/21 09:58 Anisocytosis Not Reportable 10/22/21 09:58 Microcytosis Not Reportable 10/22/21 09:58 Macrocytosis Not Reportable 10/22/21 09:58 Spherocytes Not Reportable 10/22/21 09:58 Pappenheimer Bodies Not Reportable 10/22/21 09:58 Sickle Cells Not Reportable 10/22/21 09:58 Target Cells Not Reportable 10/22/21 09:58 Tear Drop Cells Not Reportable 10/22/21 09:58 Ovalocytes Not Reportable 10/22/21 09:58 Helmet Cells Not Reportable 10/22/21 09:58 [place] Bodies Not Reportable 10/22/21 09:58 [place] Rings Not Reportable 10/22/21 09:58 [place] Cells Not Reportable 10/22/21 09:58 Bite Cells Not Reportable 10/22/21 09:58 Crenated Cell Not Reportable 10/22/21 09:58 Elliptocytes Not Reportable 10/22/21 09:58 Acanthocytes (Spur) Not Reportable 10/22/21 09:58 Rouleaux Not Reportable 10/22/21 09:58 Hemoglobin C Crystals Not Reportable 10/22/21 09:58 Schistocytes Not Reportable 10/22/21 09:58 Malaria parasites Not Reportable 10/22/21 09:58 Vidal Bodies Not Reportable 10/22/21 09:58 Hem Pathologist Commnt No 10/22/21 09:58 Sodium 143 mmol/L (137-145) 10/20/21 23:30 Potassium 3.6 mmol/L (3.6-5.0) 10/20/21 23:30 Chloride 103.5 mmol/L (98-107) 10/20/21 23:30 Carbon Dioxide 28 mmol/L (22-30) 10/20/21 23:30 Anion Gap 15 mmol/L 10/20/21 23:30 BUN 18 mg/dL (9-20) 10/20/21 23:30 Creatinine 1.1 mg/dL (0.8-1.3) 10/20/21 23:30 Estimated GFR > 60 ml/min 10/20/21 23:30 BUN/Creatinine Ratio 16 % 10/20/21 23:30 Glucose 124 mg/dL (75-100) H 10/20/21 23:30 POC Glucose 73 mg/dL (70-105) 10/16/21 06:38 Hemoglobin A1c 5.6 % (4-6) 10/19/21 05:26 Calcium 8.9 mg/dL (8.4-10.2) 10/20/21 23:30 Triglycerides 203 mg/dL (2-149) H 10/19/21 05:26 Cholesterol 115 mg/dL (50-199) 10/19/21 05:26 LDL Cholesterol Direct 47 mg/dL (50-130) L 10/19/21 05:26 HDL Cholesterol 28 mg/dL (40-59) L 10/19/21 05:26 Cholesterol/HDL Ratio 4.10 % 10/19/21 05:26 TSH 6.160 mlU/mL (0.270-4.200) H 10/19/21 05:26 Valproic Acid 43.8 ug/mL (50-100) L 10/19/21 05:26 Hepatitis A IgM Ab Non-reactive (NonReactive) 10/19/21 05:26 Hep Bs Antigen Non-reactive (Negative) 10/19/21 05:26 Hep B Core IgM Ab Non-reactive (NonReactive) 10/19/21 05:26 Hepatitis C Antibody Non-reactive (NonReactive) 10/19/21 05:26 Last Vital Signs Temp 97.3 F L 10/22/21 19:27 Pulse 75 10/22/21 19:27 Resp 17 10/22/21 19:27 BP 125/68 10/22/21 19:27 Pulse Ox 99 10/22/21 19:27
--- NOTE | 2021-10-23 09:50 | Progress Note ---
Subjective Date of service: 10/22/21 Principal diagnosis: Dementia with Behaviral Disturbance Objective - Constitutional General appearance: Present: no acute distress, well-nourished - EENT Eyes: PERRL, EOM intact ENT: hearing intact, clear oral mucosa Ears: bilateral: normal - Neck Neck: supple, normal ROM - Respiratory Respiratory effort: normal Respiratory: bilateral: CTA - Breasts Breasts: normal - Cardiovascular Rhythm: regular Heart Sounds: Present: S1 & S2. Absent: gallop, rub Extremities: pulses intact, No edema, normal color, Full ROM - Gastrointestinal General gastrointestinal: Present: soft, non-tender, non-distended, normal bowel sounds - Genitourinary Male genitourinary: normal - Integumentary Integumentary: clear, warm, dry - Musculoskeletal Musculoskeletal: 1, strength equal bilaterally - Neurologic Neurologic: moves all extremities - Psychiatric Psychiatric: memory intact, appropriate mood/affect, intact judgment & insight - Labs CBC & Chem 7: 10/22/21 09:58 10/20/21 23:30 Labs: Abnormal lab results 10/22/21 Range/Units 09:58 WBC 13.8 H (4.5-11.0) K/mm3 Plt Count 131 L (140-440) K/mm3 Seg Neuts % (Manual) 27.0 L (40.0-70.0) % Lymphocytes % (Manual) 60.0 H (13.4-35.0) % Lymphocytes # (Manual) 8.3 H (1.2-5.4) K/mm3
[2021-10-23] MEDS: MEMANTINE 5 MG TAB PO SCH ×2 (10:00→21:12)
[2021-10-23] MEDS: CHOLECALCIFEROL (VIT D3) 5,000 UNIT TAB PO SCH (10:00)
[2021-10-23] MEDS: VALPROIC ACID 250 MG CAP PO SCH ×2 (10:00→21:12)
[2021-10-23] MEDS: ASPIRIN 81 MG TAB CHEW PO SCH (10:01)
[2021-10-23] MEDS: hydroCHLOROthiazide 12.5 MG CAP PO SCH (10:01)
[2021-10-23] MEDS: risperiDONE 0.25 MG TAB PO SCH ×3 (10:01→21:12)
[2021-10-23] MEDS: LEVOTHYROXINE 25 MCG TAB PO SCH (10:02)
[2021-10-23] MEDS: LISINOPRIL 5 MG TAB PO SCH (10:06)
[2021-10-23] MEDS: EZETIMIBE 10 MG TAB PO SCH (11:16)
--- NOTE | 2021-10-23 11:23 | Progress Note ---
Assessment and Plan - Patient Problems (1) Vascular dementia with behavior disturbance Current Visit: Yes Status: Acute Plan to address problem: Verbal prompting, verbal redirection, benzodiazepine therapy as clinically indicated. (2) Cerebral atherosclerosis Current Visit: Yes Status: Acute Plan to address problem: Antiplatelet therapy as clinically indicated, supportive care (3) Hypothyroidism Current Visit: Yes Status: Acute Plan to address problem: Synthroid therapy, supportive care. (4) Bipolar disorder Current Visit: Yes Status: Acute Plan to address problem: Behavior change counseling, cognitive behavioral therapy, supportive care. (5) Hypertension Current Visit: Yes Status: Acute Qualifiers: Hypertension type: primary hypertension Qualified Code(s): I10 - Essential (primary) hypertension Plan to address problem: Monitor blood pressure every shift, continue medical management (6) Diabetes Current Visit: Yes Status: Acute Plan to address problem: Consistent carbohydrate diet, insulin protocol, Accu-Chek, hypoglycemia protocol. (7) BPH (benign prostatic hyperplasia) Current Visit: Yes Status: Acute Plan to address problem: Continue medical management, supportive care. (8) Preventative health care Current Visit: Yes Status: Acute Plan to address problem: Patient counseled regarding home safety, outpatient follow-up with primary care physician for all risk factor and age-appropriate screening test. +30 minutes. (9) Advance care planning Current Visit: Yes Status: Acute Plan to address problem: Disease education conducted, care plan discussed, diagnoses discussed, prognosis discussed and patient is full code. Patient knowledges understanding and agreement with care plan, +30 minutes. History Interval history: 80 YO Male with Vascular Dementia with Behavioral Disturbance, Cerebral Atherosclerosis, DM, HTN, HLD, Hypothyroidism, BPH, Bipolar Disorder admitted [facility] for psychiatric stabilization. Consult placed by Dr. Guardado for medical management. Pt seen and evaluated in the recreation room. Pt resting comfortably. Patient appears to be at baseline level of cognition and function. No reported nursing events. Hospitalist Physical - Constitutional Vitals: Temp Pulse Resp BP Pulse Ox 98.3 F 66 17 119/56 99 10/23/21 10:09 10/23/21 10:09 10/23/21 10:09 10/23/21 10:09 10/23/21 10:09 General appearance: Present: no acute distress, well-nourished - EENT Eyes: Present: PERRL ENT: hearing decreased - Neck Neck: Present: supple - Respiratory Respiratory effort: normal Respiratory: bilateral: diminished - Cardiovascular Rhythm: regular Heart Sounds: Present: S1 & S2 - Extremities Extremities: no ischemia Peripheral Pulses: within normal limits - Abdominal General gastrointestinal: soft, non-tender, non-distended - Integumentary Integumentary: Present: clear, dry - Psychiatric Psychiatric: cooperative - Neurologic Neurologic: CNII-XII intact Results - Labs CBC & Chem 7: 10/22/21 09:58 10/20/21 23:30 Labs: Laboratory Last Values WBC 13.8 K/mm3 (4.5-11.0) H 10/22/21 09:58 RBC 4.54 M/mm3 (3.65-5.03) 10/22/21 09:58 Hgb 14.3 gm/dl (11.8-15.2) 10/22/21 09:58 Hct 42.5 % (35.5-45.6) 10/22/21 09:58 MCV 94 fl (84-94) 10/22/21 09:58 MCH 32 pg (28-32) 10/22/21 09:58 MCHC 34 % (32-34) 10/22/21 09:58 RDW 14.7 % (13.2-15.2) 10/22/21 09:58 Plt Count 131 K/mm3 (140-440) L 10/22/21 09:58 Lymph % (Auto) Digital Media Analyst 10/22/21 09:58 Lymph # (Auto) Digital Media Analyst 10/22/21 09:58 Add Manual Diff Complete 10/22/21 09:58 Total Counted 100 10/22/21 09:58 Seg Neutrophils % Digital Media Analyst 10/22/21 09:58 Seg Neuts % (Manual) 27.0 % (40.0-70.0) L 10/22/21 09:58 Band Neutrophils % 0 % 10/22/21 09:58 Lymphocytes % (Manual) 60.0 % (13.4-35.0) H 10/22/21 09:58 Reactive Lymphs % (Man) 5.0 % 10/22/21 09:58 Monocytes % (Manual) 6.0 % (0.0-7.3) 10/22/21 09:58 Eosinophils % (Manual) 2.0 % (0.0-4.3) 10/22/21 09:58 Basophils % (Manual) 0 % (0.0-1.8) 10/22/21 09:58 Metamyelocytes % 0 % 10/22/21 09:58 Myelocytes % 0 % 10/22/21 09:58 Promyelocytes % 0 % 10/22/21 09:58 Blast Cells % 0 % 10/22/21 09:58 Nucleated RBC % Not Reportable 10/22/21 09:58 Seg Neutrophils # Man 3.7 K/mm3 (1.8-7.7) 10/22/21 09:58 Band Neutrophils # 0.0 K/mm3 10/22/21 09:58 Lymphocytes # (Manual) 8.3 K/mm3 (1.2-5.4) H 10/22/21 09:58 Abs React Lymphs (Man) 0.7 K/mm3 10/22/21 09:58 Monocytes # (Manual) 0.8 K/mm3 (0.0-0.8) 10/22/21 09:58 Eosinophils # (Manual) 0.3 K/mm3 (0.0-0.4) 10/22/21 09:58 Basophils # (Manual) 0.0 K/mm3 (0.0-0.1) 10/22/21 09:58 Metamyelocytes # 0.0 K/mm3 10/22/21 09:58 Myelocytes # 0.0 K/mm3 10/22/21 09:58 Promyelocytes # 0.0 K/mm3 10/22/21 09:58 Blast Cells # 0.0 K/mm3 10/22/21 09:58 WBC Morphology Not Reportable 10/22/21 09:58 WBC Morphology TNR 10/22/21 09:58 Hypersegmented Neuts Not Reportable 10/22/21 09:58 Hyposegmented Neuts Not Reportable 10/22/21 09:58 Hypogranular Neuts Not Reportable 10/22/21 09:58 Smudge Cells Not Reportable 10/22/21 09:58 Toxic Granulation Not Reportable 10/22/21 09:58 Toxic Vacuolation Not Reportable 10/22/21 09:58 Dohle Bodies Not Reportable 10/22/21 09:58 Pelger-Huet Anomaly Not Reportable 10/22/21 09:58 Pamela Rods Not Reportable 10/22/21 09:58 Platelet Estimate Consistent w auto 10/22/21 09:58 Clumped Platelets Not Reportable 10/22/21 09:58 Plt Clumps, EDTA Not Reportable 10/22/21 09:58 Large Platelets Not Reportable 10/22/21 09:58 Giant Platelets Not Reportable 10/22/21 09:58 Platelet Satelliting Not Reportable 10/22/21 09:58 Plt Morphology Comment Not Reportable 10/22/21 09:58 RBC Morphology Normal 10/22/21 09:58 Dimorphic RBCs Not Reportable 10/22/21 09:58 Polychromasia Not Reportable 10/22/21 09:58 Hypochromasia Not Reportable 10/22/21 09:58 Poikilocytosis Not Reportable 10/22/21 09:58 Anisocytosis Not Reportable 10/22/21 09:58 Microcytosis Not Reportable 10/22/21 09:58 Macrocytosis Not Reportable 10/22/21 09:58 Spherocytes Not Reportable 10/22/21 09:58 Pappenheimer Bodies Not Reportable 10/22/21 09:58 Sickle Cells Not Reportable 10/22/21 09:58 Target Cells Not Reportable 10/22/21 09:58 Tear Drop Cells Not Reportable 10/22/21 09:58 Ovalocytes Not Reportable 10/22/21 09:58 Helmet Cells Not Reportable 10/22/21 09:58 [place] Bodies Not Reportable 10/22/21 09:58 [place] Rings Not Reportable 10/22/21 09:58 Gale Cells Not Reportable 10/22/21 09:58 Bite Cells Not Reportable 10/22/21 09:58 Crenated Cell Not Reportable 10/22/21 09:58 Elliptocytes Not Reportable 10/22/21 09:58 Acanthocytes (Spur) Not Reportable 10/22/21 09:58 Rouleaux Not Reportable 10/22/21 09:58 Hemoglobin C Crystals Not Reportable 10/22/21 09:58 Schistocytes Not Reportable 10/22/21 09:58 Malaria parasites Not Reportable 10/22/21 09:58 Vidal Bodies Not Reportable 10/22/21 09:58 Hem Pathologist Commnt No 10/22/21 09:58 Sodium 143 mmol/L (137-145) 10/20/21 23:30 Potassium 3.6 mmol/L (3.6-5.0) 10/20/21 23:30 Chloride 103.5 mmol/L (98-107) 10/20/21 23:30 Carbon Dioxide 28 mmol/L (22-30) 10/20/21 23:30 Anion Gap 15 mmol/L 10/20/21 23:30 BUN 18 mg/dL (9-20) 10/20/21 23:30 Creatinine 1.1 mg/dL (0.8-1.3) 10/20/21 23:30 Estimated GFR > 60 ml/min 10/20/21 23:30 BUN/Creatinine Ratio 16 % 10/20/21 23:30 Glucose 124 mg/dL (75-100) H 10/20/21 23:30 POC Glucose 73 mg/dL (70-105) 10/16/21 06:38 Hemoglobin A1c 5.6 % (4-6) 10/19/21 05:26 Calcium 8.9 mg/dL (8.4-10.2) 10/20/21 23:30 Triglycerides 203 mg/dL (2-149) H 10/19/21 05:26 Cholesterol 115 mg/dL (50-199) 10/19/21 05:26 LDL Cholesterol Direct 47 mg/dL (50-130) L 10/19/21 05:26 HDL Cholesterol 28 mg/dL (40-59) L 10/19/21 05:26 Cholesterol/HDL Ratio 4.10 % 10/19/21 05:26 TSH 6.160 mlU/mL (0.270-4.200) H 10/19/21 05:26 Valproic Acid 43.8 ug/mL (50-100) L 10/19/21 05:26 Hepatitis A IgM Ab Non-reactive (NonReactive) 10/19/21 05:26 Hep Bs Antigen Non-reactive (Negative) 10/19/21 05:26 Hep B Core IgM Ab Non-reactive (NonReactive) 10/19/21 05:26 Hepatitis C Antibody Non-reactive (NonReactive) 10/19/21 05:26 Campbell/IV: Voiding Method Toilet Active Medications - Current Medications Current Medications: Generic Name Dose Route Start Last Admin Trade Name Freq PRN Reason Stop Dose Admin Acetaminophen 325 mg 10/22/21 08:29 Acetaminophen 325 Mg Tab PO Q6H PRN Pain, Mild (1-3) Aspirin 81 mg 10/20/21 12:00 10/23/21 10:01 Aspirin 81 Mg Tab Chew PO 81 mg QDAY ARTEM Administration Atorvastatin Calcium 40 mg 10/15/21 22:00 10/22/21 21:38 Atorvastatin 40 Mg Tab PO 40 mg HS ARTEM Administration Cholecalciferol 5,000 unit 10/15/21 11:00 10/23/21 10:00 Cholecalciferol (Vit D3) 5,000 Unit Tab PO 5,000 unit DAILY ARTEM Administration Ezetimibe 10 mg 10/15/21 12:00 10/22/21 12:40 Ezetimibe 10 Mg Tab PO 10 mg 1200 ARTEM Administration Gabapentin 300 mg 10/15/21 08:34 10/22/21 20:56 Gabapentin 300 Mg Cap PO 300 mg HS PRN Administration Pain , Severe (7-10) Hydrochlorothiazide 12.5 mg 10/15/21 11:00 10/23/21 10:01 Hydrochlorothiazide 12.5 Mg Cap PO 12.5 mg DAILY ARTEM Administration Levothyroxine Sodium 25 mcg 10/15/21 11:00 10/23/21 10:02 Levothyroxine 25 Mcg Tab PO 25 mcg DAILY ARTEM Administration Lisinopril 5 mg 10/21/21 10:00 10/23/21 10:06 Lisinopril 5 Mg Tab PO Not Given QDAY ARTEM Melatonin 5 mg 10/22/21 22:00 Melatonin 5 Mg Tab PO QHS PRN Sleep Memantine 5 mg 10/15/21 11:00 10/23/21 10:00 Memantine 5 Mg Tab PO 5 mg BID ARTEM Administration Risperidone 0.5 mg 10/20/21 22:00 10/22/21 21:38 Risperidone 0.25 Mg Tab PO 0.5 mg QHS ARTEM Administration Risperidone 0.5 mg 10/21/21 10:00 10/23/21 10:01 Risperidone 0.25 Mg Tab PO 0.5 mg BID@1000,1700 ARTEM Administration Tamsulosin HCl 0.4 mg 10/15/21 22:00 10/22/21 21:38 Tamsulosin 0.4 Mg Cap PO 0.4 mg HS ARTEM Administration Trazodone HCl 50 mg 10/15/21 08:36 10/22/21 20:56 Trazodone 50 Mg Tab PO 50 mg QHS PRN Administration Insomnia Valproic Acid 250 mg 10/15/21 11:00 10/23/21 10:00 Valproic Acid 250 Mg Cap PO 250 mg BID ARTEM Administration Ziprasidone 20 mg 10/17/21 10:00 Ziprasidone Mesylate 20 Mg Vial IM Q6H PRN Agitation Nutrition/Malnutrition Assess - Dietary Evaluation Nutrition/Malnutrition Findings: Nutrition Notes Start: 10/21/21 10:42 Freq: Status: Active Protocol: Document 10/21/21 10:42 RYAN (Rec: 10/21/21 10:48 NHALL [id number]) Nutrition Notes Need for Assessment generated from: LOS Initial or Follow up Assessment Other Pertinent Diagnosis Dementia with behavioral disturbance Current Diet Cardiac Labs/Tests Reviewed Pertinent Medications Vit D3 Height 5 ft 10 in Weight 70.3 kg [place] Body Weight (kg) 75.45 BMI 22.2 Weight Status Appropriate Subjective/Other Information Pt screened for LOS. He has consumed 57% of meals since admission. Per RN note, pt needs to be prompted to eat. Intakes have improved since admission. Percent of energy/protein needs met: 68% energy 59% pro Burn Absent Trauma Absent Current % PO Fair (50-74%) Minimum of two criteria No #1 Nutrition Diagnosis Inadequate protein-energy intake Etiology advanced age, dementia As Evidenced by Signs and Symptoms PO intakes meeting <75% estimated energy and pro needs Is patient on ventilator? No Is Patient Ambulatory and/or Out of Bed Yes REE-([facility]-ambulatory/OOB) [ 1858.025 [id number]] Calculation Used for Recommendations [facility] Additional Notes Pro needs 1-1.2g/k-84g/ day Fluid needs 1ml/kcal Nutrition Intervention Change Diet Order: Continue current diet order Add Supplement/Snack (indicate name/kcal Ensure Enlive once daily /protein ) Provides kCal: 350 Provides Protein (gm) 20 Goal #1 PO intake of meals plus ONS to meet at least 75% energy and pro needs Anticipated Discharge Needs: Continue ONS 1-2 times daily if PO intakes suboptimal Follow-Up By: 10/24/21 Additional Comments F/U: intakes (meals/ONS)
[2021-10-23] MEDS: GABAPENTIN 300 MG CAP PO PRN (21:12)
[2021-10-23] MEDS: traZODone 50 MG TAB PO PRN (21:12)
[2021-10-23] MEDS: TAMSULOSIN 0.4 MG CAP PO SCH (21:12)
--- NOTE | 2021-10-24 09:58 | Discharge Summary ---
Providers - Providers Date of Admission: 10/15/21 03:55 Date of discharge: 10/24/21 Attending physician: MACKENZIE HERNADEZ MD 10/14/21 19:10 Consult to Physician [CONS] Routine Comment: Consulting Provider: PAUL SCHAFER Physician Instructions: Reason For Exam: New admit 10/20/21 14:41 Physical Therapy Evaluation and Treat [CONS] Stat Comment: Reason For Exam: assess gait s/p 10/20/21 14:42 Occupational Therapy Evaluate and Treat [CONS] Stat Comment: Reason For Exam: assess s/p fall Primary care physician: KATIE HARMON MD Hospitalization Admitting Diagnosis: F02.81 - DEMENTIA IN OTH DISEASES CLASSD ELSWHR W BEHAVIORAL DISTURB Condition: Stable Hospital course: The patient was provided inpatient psychiatric treatment with safe and supportive environment, group/individual therapy, psychiatric medication, medication adjustment, adverse effect monitor, medical evaluation, medical treatment, social service assessment, social support meeting, placement assessment and psycho-education. The patients mood, cognition, behavior, motivation, compliance to treatment and appreciation on family/social support are improved and stabilized. At the time of discharge, the patient had no suicidal ideas, no homicidal ideas, no aggressive thoughts, no endangering behavior and no debilitating adverse effects. The patient agreed on the treatment plan, understood the risk, benefit, alternative treatment, potential consequence of no treatment, and gave informed consent. The patient was seen today. He has improved significantly. He is up eating breakfast. He states he's "doing alright" when asked. He says he appetite is "pretty good" and he's been sleeping well. The patient denies SI/HI. He is clear from a psych standpoint and will be discharging today. 10/23 The patient was seen today. He is more with it today. He greets me with "good morning." He says he's cold but feels alright. The patient says he slept well. He denies SI/HI. 10/22 The patient was seen today. He is sleeping but easily arouses. He is confused. He says he didn't sleep well. The patient says his shoulder hurts. 10/21 The patient was seen today. He is lying in bed asleep. He easily arouses. He is confused. He says he's doing okay. He is mumbling and difficult to understand. 10/20: The patient was seen today. The patient is alert and oriented x1. He reports doing well " trying to make it." he continues to present with some confusion. No aggressive behavior reported. No changes made today. 10/19:The patient was seen resting quietly in bed. He is calm and cooperative. He is requesting for breakfast. Per nurse, " Pt alert but confused. Slept approximately for 5 hours during the night." 10/18: The patient was seen resting quietly in bed. Per nurse, the patient had an uneventful night. 10/17: The patient was seen resting quietly in bed. per nurse, " He presents as confused and forgetful. His appetite is improving and he was medication compliant. He had to be assisted with putting the cup to his mouth due to his confusion. He had no agitation throughout the evening. Overnight the patient slept until around 3 am. A female peer was yelling out and he went to her door and stood in the doorway. He was rubbing his left leg and stated it hurt. He could not be convinced to leave the other patients door. Patient presented as experiencing visual hallucinations. He was following unseen objects with his eyes. Patient could not be redirected without becoming angry. Geodon 20 mg IM was given for increasing agitation. He was assisted to bed where he stayed and rested. He did not sleep much but did not come back out of his room. Patient slept around 5 hours." Start Risperidone 1mg po BID Disposition: HOME / SELF CARE / HOMELESS Time spent for discharge: 35 Allergies/Adverse Reactions: Allergies No Known Allergies Allergy (Unverified 10/14/21 05:50) Vital Signs: Last Vital Signs Temp 98.8 F 10/23/21 22:00 Pulse 86 10/23/21 22:00 Resp 18 10/23/21 22:00 BP 139/60 10/23/21 22:00 Pulse Ox 99 10/23/21 22:00 Last Lab: Laboratory Last Values WBC 13.8 K/mm3 (4.5-11.0) H 10/22/21 09:58 RBC 4.54 M/mm3 (3.65-5.03) 10/22/21 09:58 Hgb 14.3 gm/dl (11.8-15.2) 10/22/21 09:58 Hct 42.5 % (35.5-45.6) 10/22/21 09:58 MCV 94 fl (84-94) 10/22/21 09:58 MCH 32 pg (28-32) 10/22/21 09:58 MCHC 34 % (32-34) 10/22/21 09:58 RDW 14.7 % (13.2-15.2) 10/22/21 09:58 Plt Count 131 K/mm3 (140-440) L 10/22/21 09:58 Lymph % (Auto) Hearing Aid Consultant 10/22/21 09:58 Lymph # (Auto) Hearing Aid Consultant 10/22/21 09:58 Add Manual Diff Complete 10/22/21 09:58 Total Counted 100 10/22/21 09:58 Seg Neutrophils % Hearing Aid Consultant 10/22/21 09:58 Seg Neuts % (Manual) 27.0 % (40.0-70.0) L 10/22/21 09:58 Band Neutrophils % 0 % 10/22/21 09:58 Lymphocytes % (Manual) 60.0 % (13.4-35.0) H 10/22/21 09:58 Reactive Lymphs % (Man) 5.0 % 10/22/21 09:58 Monocytes % (Manual) 6.0 % (0.0-7.3) 10/22/21 09:58 Eosinophils % (Manual) 2.0 % (0.0-4.3) 10/22/21 09:58 Basophils % (Manual) 0 % (0.0-1.8) 10/22/21 09:58 Metamyelocytes % 0 % 10/22/21 09:58 Myelocytes % 0 % 10/22/21 09:58 Promyelocytes % 0 % 10/22/21 09:58 Blast Cells % 0 % 10/22/21 09:58 Nucleated RBC % Not Reportable 10/22/21 09:58 Seg Neutrophils # Man 3.7 K/mm3 (1.8-7.7) 10/22/21 09:58 Band Neutrophils # 0.0 K/mm3 10/22/21 09:58 Lymphocytes # (Manual) 8.3 K/mm3 (1.2-5.4) H 10/22/21 09:58 Abs React Lymphs (Man) 0.7 K/mm3 10/22/21 09:58 Monocytes # (Manual) 0.8 K/mm3 (0.0-0.8) 10/22/21 09:58 Eosinophils # (Manual) 0.3 K/mm3 (0.0-0.4) 10/22/21 09:58 Basophils # (Manual) 0.0 K/mm3 (0.0-0.1) 10/22/21 09:58 Metamyelocytes # 0.0 K/mm3 10/22/21 09:58 Myelocytes # 0.0 K/mm3 10/22/21 09:58 Promyelocytes # 0.0 K/mm3 10/22/21 09:58 Blast Cells # 0.0 K/mm3 10/22/21 09:58 WBC Morphology Not Reportable 10/22/21 09:58 WBC Morphology TNR 10/22/21 09:58 Hypersegmented Neuts Not Reportable 10/22/21 09:58 Hyposegmented Neuts Not Reportable 10/22/21 09:58 Hypogranular Neuts Not Reportable 10/22/21 09:58 Smudge Cells Not Reportable 10/22/21 09:58 Toxic Granulation Not Reportable 10/22/21 09:58 Toxic Vacuolation Not Reportable 10/22/21 09:58 Dohle Bodies Not Reportable 10/22/21 09:58 Pelger-Huet Anomaly Not Reportable 10/22/21 09:58 Pamela Rods Not Reportable 10/22/21 09:58 Platelet Estimate Consistent w auto 10/22/21 09:58 Clumped Platelets Not Reportable 10/22/21 09:58 Plt Clumps, EDTA Not Reportable 10/22/21 09:58 Large Platelets Not Reportable 10/22/21 09:58 Giant Platelets Not Reportable 10/22/21 09:58 Platelet Satelliting Not Reportable 10/22/21 09:58 Plt Morphology Comment Not Reportable 10/22/21 09:58 RBC Morphology Normal 10/22/21 09:58 Dimorphic RBCs Not Reportable 10/22/21 09:58 Polychromasia Not Reportable 10/22/21 09:58 Hypochromasia Not Reportable 10/22/21 09:58 Poikilocytosis Not Reportable 10/22/21 09:58 Anisocytosis Not Reportable 10/22/21 09:58 Microcytosis Not Reportable 10/22/21 09:58 Macrocytosis Not Reportable 10/22/21 09:58 Spherocytes Not Reportable 10/22/21 09:58 Pappenheimer Bodies Not Reportable 10/22/21 09:58 Sickle Cells Not Reportable 10/22/21 09:58 Target Cells Not Reportable 10/22/21 09:58 Tear Drop Cells Not Reportable 10/22/21 09:58 Ovalocytes Not Reportable 10/22/21 09:58 Helmet Cells Not Reportable 10/22/21 09:58 [place] Bodies Not Reportable 10/22/21 09:58 [place] Rings Not Reportable 10/22/21 09:58 Gravelly Cells Not Reportable 10/22/21 09:58 Bite Cells Not Reportable 10/22/21 09:58 Crenated Cell Not Reportable 10/22/21 09:58 Elliptocytes Not Reportable 10/22/21 09:58 Acanthocytes (Spur) Not Reportable 10/22/21 09:58 Rouleaux Not Reportable 10/22/21 09:58 Hemoglobin C Crystals Not Reportable 10/22/21 09:58 Schistocytes Not Reportable 10/22/21 09:58 Malaria parasites Not Reportable 10/22/21 09:58 Vidal Bodies Not Reportable 10/22/21 09:58 Hem Pathologist Commnt No 10/22/21 09:58 Sodium 143 mmol/L (137-145) 10/20/21 23:30 Potassium 3.6 mmol/L (3.6-5.0) 10/20/21 23:30 Chloride 103.5 mmol/L (98-107) 10/20/21 23:30 Carbon Dioxide 28 mmol/L (22-30) 10/20/21 23:30 Anion Gap 15 mmol/L 10/20/21 23:30 BUN 18 mg/dL (9-20) 10/20/21 23:30 Creatinine 1.1 mg/dL (0.8-1.3) 10/20/21 23:30 Estimated GFR > 60 ml/min 10/20/21 23:30 BUN/Creatinine Ratio 16 % 10/20/21 23:30 Glucose 124 mg/dL (75-100) H 10/20/21 23:30 POC Glucose 73 mg/dL (70-105) 10/16/21 06:38 Hemoglobin A1c 5.6 % (4-6) 10/19/21 05:26 Calcium 8.9 mg/dL (8.4-10.2) 10/20/21 23:30 Triglycerides 203 mg/dL (2-149) H 10/19/21 05:26 Cholesterol 115 mg/dL (50-199) 10/19/21 05:26 LDL Cholesterol Direct 47 mg/dL (50-130) L 10/19/21 05:26 HDL Cholesterol 28 mg/dL (40-59) L 10/19/21 05:26 Cholesterol/HDL Ratio 4.10 % 10/19/21 05:26 TSH 6.160 mlU/mL (0.270-4.200) H 10/19/21 05:26 Valproic Acid 43.8 ug/mL (50-100) L 10/19/21 05:26 Hepatitis A IgM Ab Non-reactive (NonReactive) 10/19/21 05:26 Hep Bs Antigen Non-reactive (Negative) 10/19/21 05:26 Hep B Core IgM Ab Non-reactive (NonReactive) 10/19/21 05:26 Hepatitis C Antibody Non-reactive (NonReactive) 10/19/21 05:26 Core Measure Documentation - Palliative Care Palliative Care/ Comfort Measures: Not Applicable - Core Measures Any of the following diagnoses?: none Exam - Constitutional Vitals: Temp Pulse Resp BP Pulse Ox 98.8 F 86 18 139/60 99 10/23/21 22:00 10/23/21 22:00 10/23/21 22:00 10/23/21 22:00 10/23/21 22:00 General appearance: Present: no acute distress - EENT Eyes: Present: PERRL, EOM intact ENT: hearing intact, clear oral mucosa - Neck Neck: Present: supple, normal ROM - Respiratory Respiratory effort: normal Plan Activity: advance as tolerated Weight Bearing Status: Weight Bear as Tolerated Care Plan Goals: Maintain good and stable mental health Plan of Treatment: The patient should be compliant with medications, not to use drugs and not to drink alcohol.The patient understands that if suicidal ideas, homicidal ideas, or any endangering thoughts/behavior arise, they should immediately seek for emergent assistance including but not limited to crisis hot line and emergency room. Follow up with outpatient Psychiatrist and PCP within 7 - 14 days of discharge. Assessment: Dementia with Behavioral Disturbance Follow up with: KATIE HARMON MD [Primary Care Provider] - 7 Days Prescriptions: traZODone [Desyrel] 50 mg PO QHS PRN #30 tablet PRN Reason: Insomnia Melatonin [Melatonin 5MG TAB] 5 mg PO QHS PRN #30 tablet PRN Reason: Sleep risperiDONE [RisperDAL] 0.5 mg PO QHS #30 tablet Valproic Acid [Depakene] 250 mg PO BID #60 cap risperiDONE [RisperDAL] 0.5 mg PO BID@1000,1700 #60 tablet
[2021-10-24 10:07] VITALS: BP 124/50
[2021-10-24] MEDS: LEVOTHYROXINE 25 MCG TAB PO SCH (10:07)
[2021-10-24] MEDS: VALPROIC ACID 250 MG CAP PO SCH (10:07)
[2021-10-24] MEDS: risperiDONE 0.25 MG TAB PO SCH (10:08)
[2021-10-24] MEDS: ASPIRIN 81 MG TAB CHEW PO SCH (10:08)
[2021-10-24] MEDS: MEMANTINE 5 MG TAB PO SCH (10:08)
[2021-10-24] MEDS: hydroCHLOROthiazide 12.5 MG CAP PO SCH (10:08)
[2021-10-24] MEDS: CHOLECALCIFEROL (VIT D3) 5,000 UNIT TAB PO SCH (10:08)
[2021-10-24] MEDS: LISINOPRIL 5 MG TAB PO SCH (10:09)
[2021-10-24] MEDS: EZETIMIBE 10 MG TAB PO SCH (12:13)
== END 2021-10-24 15:57 | DRG 884 ==
LOC: 3A 18:50 → UNDOADMIN 18:50 → 5A 10-15 03:55
PROVIDERS: ADMIT Psychiatry & Neurology Psychiatry; ATTEND Psychiatry & Neurology Psychiatry
DX: F01.51 Vascular dementia, unspecified severity, with behavioral disturbance (principal); I10 Essential (primary) hypertension; E78.5 Hyperlipidemia, unspecified; E03.9 Hypothyroidism, unspecified; Z83.3 Family history of diabetes mellitus; Z82.49 Family history of ischemic heart disease and other diseases of the circulatory system; I67.2 Cerebral atherosclerosis; E11.9 Type 2 diabetes mellitus without complications; N40.0 Benign prostatic hyperplasia without lower urinary tract symptoms; F31.9 Bipolar disorder, unspecified; D72.829 Elevated white blood cell count, unspecified; Z79.899 Other long term (current) drug therapy
CPT/HCPCS: 36415; 80048; 80053; 80061; 80074; 80164; 80178; 80307; 80320; 81001; 82550; 82962; 83036; 84443; 85007; 85025; 85027; 93005; G0378; G0480; J2060; J3486; U0003